=== PATIENT | female | born 1995 | race Caucasian/White ===

== ENCOUNTER 2023-07-06 11:34 | Emergency (ER) | payer OTHER, SELFPAY ==
--- NOTE | ~2023-07-06 | XR_ITS ---
EXAMINATION: XR ankle LT min 3V DATE: 07/06/2023 11:54 INDICATION: Left ankle pain TECHNIQUE: Anteroposterior, lateral, mortise, and additional oblique view of the ankle were obtained. COMPARISON: None. FINDINGS: There is lateral soft tissue swelling of ankle. Bone alignment is normal. There is no fract ure. IMPRESSION: 1. Lateral ankle soft tissue swelling without acute osseous abnormality. Reviewed, dictated and finalized at location A.
[2023-07-06 11:41] VITALS: BP 116/74; PULSE 73; RESP 16; TEMP 35.9; O2SAT 99
--- NOTE | 2023-07-06 11:57 | ED.LOWEXIN ---
HPI - Extremity Injury (Lower) General Chief Complaint: Extremity Injury, Lower Stated Complaint: left ankle injury History of Present Illness HPI Narrative: PATIENT PRESENTS WITH LEFT ANKLE INJURY. PATIENT STATES SHE MISSED A STEP LAST NIGHT AND HAS CONTINUED SWELLING AND DISCOMFORT TO HER LEFT ANKLE. NO DEFORMITY NOTED PATIENT STATES PAIN WITH AMBULATION. Related Data Home Medications Medication Instructions Recorded Confirmed norelgestromin 150 mcg-e.estradiol patch 07/06/23 35 mcg/24 hr weekly transderm patch (Xulane) Allergies Allergy/AdvReac Type Severity Reaction Status Date / Time No Known Allergies Allergy Verified 07/06/23 11:43 Review of Systems Review of Systems: CONSTITUTIONAL: DENIES FEVER, CHILLS, OR SWEATS. EYES: DENIES VISUAL CHANGES, REDNESS, OR DISCHARGE. ENT: DENIES RHINORRHEA, CONGESTION, SORE THROAT, OR OTALGIA. CARDIOVASCULAR: DENIES CHEST PAIN, PALPITATIONS, OR EDEMA. RESPIRATORY: DENIES COUGH OR DYSPNEA. GASTROINTESTINAL: DENIES ABDOMINAL PAIN, NAUSEA, VOMITING, OR DIARRHEA. GENITOURINARY: DENIES DYSURIA OR HEMATURIA. SKIN: DENIES RASH OR ITCHING. MUSCULOSKELETAL: DENIES BACK PAIN, JOINT PAIN, OR MYALGIA. NEUROLOGIC: DENIES HEADACHE, NUMBNESS, OR WEAKNESS. PSYCHIATRIC: DENIES ANXIETY OR DEPRESSION. PMFSH Comments AT TIME OF SIGNATURE, AGREE WITH NURSING PAST MEDICAL, SURGICAL, SOCIAL AND FAMILY HISTORY. THERE IS NO RELEVANT FAMILY HISTORY PERTINENT TO THE PRESENTING COMPLAINT Exam Narrative: GENERAL: WELL-APPEARING, WELL-NOURISHED, AND IN NO ACUTE DISTRESS. HEAD: NORMOCEPHALIC, ATRAUMATIC. EYES: PERRLA AND EOMI. ENT: NARES CLEAR, NO RHINORRHEA OR EPISTAXIS. MUCOUS MEMBRANES MOIST. NECK: SUPPLE. CHEST: CLEAR TO AUSCULTATION. NO RESPIRATORY DISTRESS. HEART: REGULAR RATE AND RHYTHM. NO MURMUR HEARD. NORMAL PERIPHERAL PULSES. ABDOMEN: SOFT, NONTENDER, NONDISTENDED, NORMAL ACTIVE BOWEL SOUNDS. EXTREMITIES: NORMAL RANGE OF MOTION. NO EDEMA. ANKLE EXAM SWELLING AND TENDERNESS TO LEFT ANKLE. SKIN INTACT. NORMAL DP PULSE, NORMAL CAP REFILL. NORMAL SENSATION. SKIN: WARM, DRY, NO RASH. NEURO: NO FOCAL DEFICITS. ALERT AND ORIENTED X3. JENELLE COMA SCALE EYE OPENING: SPONTANEOUS 4 JENELLE COMA SCALE MOTOR: OBEYS COMMANDS 6 JENELLE COMA SCALE VERBAL: ORIENTED 5 JENELLE COMA SCALE TOTAL 15 Course Course Level of Care: Express Care Visit Vital Signs Vital signs: Vital Signs Temperature 35.9 C L 07/06/23 11:41 Pulse Rate 73 07/06/23 11:41 Respiratory Rate 16 07/06/23 11:41 Blood Pressure 116/74 07/06/23 11:41 Pulse Oximetry 99 07/06/23 11:41 Oxygen Delivery Room Air 07/06/23 11:41 Temperature 35.9 C L 07/06/23 11:41 Pulse Rate 73 07/06/23 11:41 Respiratory Rate 16 07/06/23 11:41 Blood Pressure 116/74 07/06/23 11:41 Pulse Oximetry 99 07/06/23 11:41 Oxygen Delivery Room Air 07/06/23 11:41 MDM - Extremity Injury (Lower) Imaging Data Radiologist's impression: LATERAL ANKLE SOFT TISSUE SWELLING WITHOUT ACUTE OSSEOUS ABNORMALITY Discharge Plan Discharge Clinical Impression: Ankle sprain and strain Patient Disposition: Home, Self-Care Condition: Stable Instructions: Ankle Strain (ED) Additional Instructions: ICE TO THE AREA 20-30 MINUTES 4-6 TIMES A DAY ELEVATE ABOVE HEART ELASTIC WRAP DIRECTED FOR COMFORT FOR THE NEXT 5-7 DAYS TYLENOL FOR LESSER PAIN IBUPROFEN REGULARLY FOR THE NEXT 2-3 DAYS FOR THE INFLAMMATION FOLLOW-UP WITH PCP IF FURTHER PROBLEMS OR CONCERNS -IF YOU HAVE ANY WORSENING OF SYMPTOMS OR ANY OTHER CONCERNS PLEASE GO TO THE ED IMMEDIATELY. Prescriptions: No Action Xulane 150-35 mcg/24 hr patch weekly Follow-up/Referrals: PHYSICIAN,SUCTION OPERATOR [Primary Care Provider] - Stand Alone Forms: Work/School Release IP
== END 2023-07-06 12:39 | disposition home or self-care (01) ==
PROVIDERS: Emergency Provider Nurse Practitioner Family
DX: S93.402A Sprain of unspecified ligament of left ankle, initial encounter (principal); S96.912A Strain of unspecified muscle and tendon at ankle and foot level, left foot, initial encounter; X50.0XXA Overexertion from strenuous movement or load, initial encounter
CPT/HCPCS: 73610; 99213; G0463

== ENCOUNTER 2024-02-13 12:21 | Emergency (ER) | payer OTHER, SELFPAY ==
[2024-02-13 12:32] VITALS: BP 110/70; PULSE 65; RESP 20; TEMP 36.9; O2SAT 100
--- NOTE | 2024-02-13 13:01 | ED.GENADULT ---
HPI - General Adult General Chief complaint: Upper Respiratory Infection Stated complaint: Rash and swollen eye Time Seen by Provider: 02/13/24 12:50 Source: patient, RN notes reviewed and old records reviewed Mode of arrival: ambulatory Limitations: no limitations History of Present Illness HPI narrative: 28 year old female presents to [facility] care with complaints of cough for a couple of days then lst night she started with this rash on her hands and on her forearms and some swelling of her hands. She states that sh took 2 Benadryl when she went to bed last night and today she has no itching but rash has increased to torso and has increased to hands with more swelling. Patient denies any known allergens or any new skin laundry products, no new foods or medications. Patient denies any shortness of breath or any difficulty swallowing. MD complaint: rash to torso bilateral arms and hands with swlling of hands Onset (ago): day(s) (since last night) Severity: moderate Treatments prior to arrival: other (Benadryl) Related Data Home Medications Medication Instructions Recorded Confirmed norelgestromin 150 mcg-e.estradiol patch 07/06/23 35 mcg/24 hr weekly transderm patch (Xulane) Allergies Allergy/AdvReac Type Severity Reaction Status Date / Time No Known Allergies Allergy Verified 07/06/23 11:43 Review of Systems Review of Systems: CONSTITUTIONAL: Denies fever, chills, or sweats. EYES: Denies visual changes, redness, or discharge. ENT: Denies rhinorrhea, congestion, sore throat, or otalgia. CARDIOVASCULAR: Denies chest pain, palpitations, or edema. RESPIRATORY: Reports cough no dyspnea. GASTROINTESTINAL: Denies abdominal pain, nausea, vomiting, or diarrhea. GENITOURINARY: Denies dysuria or hematuria. SKIN: rash to torso, bilateral forearms and hand with some swelling of hands MUSCULOSKELETAL: Denies back pain, joint pain, or myalgia. NEUROLOGIC: Denies headache, numbness, or weakness. PSYCHIATRIC: Denies anxiety or depression. All systems reviewed & are unremarkable except as noted in HPI and below PMFSH Past Medical History Medical History (Updated 02/15/24 @ 00:33 by Aliya Sal NP) Asthma Social History Social History (Updated 02/15/24 @ 00:36 by Aliya L. Doron, HABILITATION TRAINING SPECIALIST) Smoking status: Never smoker Alcohol intake: current Alcohol use details: social Substance use type: does not use Gender identity (if verbalized by the patient): Female Comments At time of signature, agree with nursing past medical, surgical, social and family history. There is no relevant family history pertinent to the presenting complaint Exam Narrative: GENERAL: Well-appearing, well-nourished, and in no acute distress. HEAD: Normocephalic, atraumatic. EYES: PERRLA and EOMI. ENT: Nares clear, no rhinorrhea or epistaxis. Mucous membranes moist.throat pink with no swelling or any Ismael angina noted NECK: Supple.no lymphadenopathy CHEST: Clear to auscultation. No respiratory distress.SAO2 100% HEART: Regular rate and rhythm. No murmur heard. Normal peripheral pulses. ABDOMEN: Soft, nontender, nondistended, normal active bowel sounds. EXTREMITIES: Normal range of motion. swelling to dorsal aspect bilateral hands SKIN: Warm, dry, red flat rash on torso, bilateral arms, hands with swelling of hands not presently itchy took Benadryl NEURO: No focal deficits. Alert and oriented x3. Course Course Emergency Course: Patient is aware of diagnosis, understands and agrees to treatment plan.? Anticipatory guidance given.? Patient agrees to follow-up as directed and is aware of reasons to seek care at the emergency department. Portions of this record may have been created with voice recognition software Level of Care: Express Care Visit Vital Signs Vital signs: Vital Signs Temperature 36.9 C 02/13/24 12:32 Pulse Rate 65 02/13/24 12:32 Respiratory Rate 20 02/13/24 12:32 Blood Pressure 110/70
== END 2024-02-13 13:21 | disposition home or self-care (01) ==
PROVIDERS: Emergency Provider Registered Nurse
DX: L30.9 Dermatitis, unspecified (principal); J45.909 Unspecified asthma, uncomplicated
CPT/HCPCS: 87081; 87880; 99213; G0463

== ENCOUNTER 2024-11-29 12:36 | Outpatient (CLI) | payer OTHER, SELFPAY ==
--- NOTE | ~2024-11-29 | XR_ITS ---
CHEST RADIOGRAPH, PA AND LATERAL CLINICAL HISTORY: positive QuantiFeron . COMPARISON: None available TECHNIQUE: PA and lateral views of the chest. FINDINGS The cardiomediastinal silhouette is unremarkable. The lungs are clear. Visualized osseous structures and soft tissues are unremarkable. IMPRESSION: No focal infiltrate or effusion. No findings to suggest latent tuberculosis Reviewed, dictated and finalized at location A. TRICAL ENGINEERING DRAFTING OFFICER
--- OUTSIDE RECORDS SUMMARY | 2024-11-29 14:13 | XMS_ITS | Patient Health Record ---
Author Organization [facility] Address [address] [place] [address] Care Team Providers Care Migration Specialist Name Role Phone AmadouRuth Primary Care Provider IamSanjay Unavailable [phone] Tatiana Ruiz Unavailable [phone] Dereck Kelly Unavailable [phone] Allergies No Known Allergies Results Component Value Reference Range Notes CMP 14 Comprehensive Metabol ic Panel* (Not yet reviewed by provider) Interpretation: Performing Lab:[facility], [address], [place], Phone - [phone], Director - Arsh Notes/Report: Glucose 94 70-99 mg/dL BUN 13 6-20 mg/dL Creatinine 0.67 0.57-1.00 mg/dL eGFR 122 >59 mL/min/1.73 BUN/Creatinine Ratio 19 9-23 Sodium 138 134-144 mmol/L Potassium 4.5 3.5-5.2 mmol/L Chloride 100 96-106 mmol/L Carbon Dioxide, Total 26 20-29 mmol/L Calcium 9.7 8.7-10.2 mg/dL Protein, Total 7.2 6.0-8.5 g/dL Albumin 4.4 4.0-5.0 g/dL Globulin, Total 2.8 1.5-4.5 g/dL Bilirubin, Total <0.2 0.0-1.2 mg/dL Alkaline Phosphatase 63 44-121 IU/L AST (SGOT) 24 0-40 IU/L ALT (SGPT) 32 0-32 IU/L CBC With Differential/Platel et* (Not yet reviewed by provider) Interpretation: Performing Lab[facility] [address] [facility] Phone - [phone], Director - [facility] Notes/Report: WBC 8.5 3.4-10.8 x10E3/uL RBC 4.40 3.77-5.28 x10E6/uL Hemoglobin 13.6 11.1-15.9 g/dL Hematocrit 42.0 34.0-46.6 % MCV 96 79-97 fL MCH 30.9 26.6-33.0 pg MCHC 32.4 31.5-35.7 g/dL RDW 11.6 11.7-15.4 % Platelets 347 150-450 x10E3/uL Neutrophils 57 Not Estab. % Lymphs 31 Not Estab. % Monocytes 9 Not Estab. % Eos 2 Not Estab. % Basos 1 Not Estab. % Neutrophils (Absolute) 4.8 1.4-7.0 x10E3/uL Lymphs (Absolute) 2.6 0.7-3.1 x10E3/uL Monocytes(Absolute) 0.7 0.1-0.9 x10E3/uL Eos (Absolute) 0.2 0.0-0.4 x10E3/uL Baso (Absolute) 0.1 0.0-0.2 x10E3/uL Immature Granulocytes 0 Not Estab. % Immature Grans (Abs) 0.0 0.0-0.1 x10E3/uL Rapid Plasma Reagin (RPR) Te st With Reflex to Quantitative RPR and Confirmatory Treponema pallidum Antibodies Reviewed date:11/28/2024 06:04:39 PM Interpretation:Negative Performing Lab:[facility] [place], [address], Phone - [phone], Director - [facility] Notes/Report: RPR Non Reactive Non Reactive HIV Screen *HIV 1, 2 Ab, p24 Ag ([id number]) Reviewed date:11/28/2024 06:06:24 PM Interpretation:Negative Performing Lab:[facility] [place], [address], Phone - [phone], Director - [facility] Notes/Report: HIV Ab/p24 Ag Screen Non Reactive Non Reactive HIV-1/HIV-2 antibodies and HIV-1 p24 antigen were NOT detected. There is no laboratory evidence of HIV infection. HIV Negative Test, Urine Reviewed date:11/26/2024 08:38:33 AM Interpretation: Performing Lab: Notes/Report: Test, Urine Neg Negative - Negative QuantiFERON-TB Gold Plus ([id number]) Reviewed date:11/28/2024 06:04:39 PM Interpretation:Abnormal [facility]forming [facility], [address], Phone - [phone], Director - Arsh Notes/Report: QuantiFERON Incubation Incubation performed. QuantiFERON-TB Gold Plus Positive Negative A response to M tuberculosis antigens has been detected. If patient is at low risk for Tuberculosis, the result should be interpreted with caution and repeat testing on a new specimen is recommended (ATS/IDSA/CDC Clinical Practice Guidelines, 2017). False positives can also occur due to infection by M kansasii, M szulgai, or M marinum. Chemiluminescence immunoassay methodology QuantiFERON Criteria QuantiFERON-TB Gold Plus is a qualitative indirect test for M tuberculosis infection (including disease) and is intended for use in conjunction with risk assessment, radiography, and other medical and diagnostic evaluations. The QuantiFERON-TB Gold Plus result is determined by subtracting the Nil value from either TB antigen (Ag) value. The Mitogen tube serves as a control for the test. QuantiFERON TB1 Ag Value 0.40 QuantiFERON TB2 Ag Value 0.42 QuantiFERON Nil Value 0.05 QuantiFERON Mitogen Value >10.00 Breathalyzer Reviewed date:11/26/2024 08:38:42 AM Interpretation: Performing Lab: Notes/Report: CHASTITY 0.00 12 Panel Urine Drug Screen Reviewed date:11/26/2024 08:38:49 AM Interpretation: Performing Lab: Notes/Report: THC Neg ALICIA neg MOP (OPI) neg AMP neg MET neg BAR neg BZO neg MDMA neg MTD neg OXY neg PCP neg BUP neg Reason For Referral No Information Medications Medication SIG (Take, Route, Frequency, Duration) Notes Start Date End Date Status ARIPiprazole 10 MG take one-half (0.5) tablet x 7 days then 1 tablet Orally Once a day for 30 days 11/29/2024 Active Benztropine Mesylate 1 MG 1 tablet Orall y Once a day for 30 day(s) 11/29/2024 Active Propranolol HCl 20 MG 1 tablet Orally Tw ice a day for 30 day(s) 11/29/2024 Active Xulane 150-35 MCG/24HR as directed Transdermal Not-Taking OLANZapine 15 MG 1 tablet Orally Once a day for 30 day(s) Active Escitalopram Oxalate 10 MG 1 tablet Orally Once a day for 30 day(s) 11/29/2024 Active Escitalopram Oxalate 10 MG 1 tablet Orally Once a day for 30 day(s) Active OLANZapine 5 MG 1 tablet Orally Once a day for 30 days 12/06/2024 Active hydrOXYzine Pamoate 25 MG 1 capsule at b edtime as needed Orally Once a day Active Social History Tobacco Use: Social History Observation Description Date Details (start date - stop date) Light tobacco s moker NA - NA Sex Assigned At : Social History Observation Description Sex Assigned At Female Tobacco Control (Standard) Question Answer Notes Tobacco use: Light tobacco smoker Additional Findings: Tobacco user Moderate cigar ette smoker (10-19 cigs/day) Section Notes: Social History- location- [place] Describe childhood- Abuse/Trauma-yes 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 Spiritual Affiliation- nature Who lives at home? her and two kids. Siblings? Children? 3 and 8 year old, Older son's dad co-parents with his , Legal History- the kids got taken on 10/29/24, DCFS took due to failed UDS. 3 y.o. Son with a sitter and he ingested cannabis, ended up in the hospital and DCFS became involved. Substance Use-prior to hospital daily cannabis, cocaine use, ETOH-vodka depends on the day-- 10 in a sleeve--between 5 to 10 oz of ETOH a day Problems Problem Type SNOMED Code ICD Code Onset Dates Problem Status W/U Status Risk Notes Problem Tobacco user (098607781) Nicotine dependence, unspecified, uncomplicated (F17.200) Active confirmed Problem Bipolar 1 disorder (061806477) Bipolar 1 disorder (F31.9) Active confirmed Problem Disorder caused by alcohol (disorder) (988503941) Alcohol use disorder (F10.99) Active confirmed Problem Tobacco use (830981351) Tobacco use disorder (F17.200) Active confirmed Problem Interferon gamma assay result indeterminate (364969093) 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 Vital Signs Heart Rate 99 /min 11/26/2024 Temperature 98.4 degrees Fahrenheit 11/25/2024 Respiratory Rate 16 /min 11/29/2024 Blood pressure diastolic 70 mm Hg 11/26/2024 Oximetry 98 % 11/26/2024 Height 62.5 in 11/26/2024 Blood pressure systolic 112 mm Hg 11/26/2024 Weight 125.8 lbs 11/26/2024 BMI 22.64 kg/m2 11/26/2024 Encounters Encounter Location Date Provider Diagnosis [facility] [address] [address] 11/29/2024 Kelly Harden Bipolar 1 disorder F31.9 ; Alcohol use disorder F10.99 and Nicotine dependence, unspecified, uncomplicated F17.200 [address] [place] [address] 11/25/2024 Tatiana Ruiz Bipolar 1 disorder F31.9 [address] [place] [address] 11/25/2024 Ruth Tobar Adult general medica l exam Z00.00 ; Exposure to potential infection Z20.9 and Nicotine dependence, unspecified, uncomplicated F17.200 [address] [place] [address] 11/26/2024 Sanjay Vitale Alcohol use disorder F10.99 and Tobacco use disorder F17.[address] [place] [address] 11/28/2024 Ruth Tobar Positive QuantiFERON-TB Gold test R76.12 Assessments Encounter Date Diagnosis (ICD Code) Assessment Notes Treatment Notes Treatment Clinical Notes Section Notes 11/25/2024 Adult general medical exam (ICD-10 - Z00.00) 11/25/2024 Exposure to potential infection (ICD-10 - Z20.9) 11/26/2024 Alcohol use disorder (ICD-10 - F10.99) 11/26/2024 Tobacco use disorder (ICD-10 - F17.200) 11/28/2024 Positive QuantiFERON-TB Gold test (ICD-10 - R76.12) 11/25/2024 Bipolar 1 disorder (ICD-10 - F31.9) 11/29/2024 Bipolar 1 disorder (ICD-10 - F31.9) Changing agents from olanzapine to aripiprazole. Client does not trust medication and is very sedated. Likes the idea of WOMACK. Explained she may still feel sedated during this process of switching. Day 1-7 olanzapine 7.5 mg (Take one-half of 15 mg pill) at bedtime aripiprazole 5 mg at bedtime (Take one-half of 10 mg tablet) Day 8-14 Olanzapine 5 mg at bedtime aripiprazole 10 mg at bedtime Day 15 stop olanzapine continue (or raise) aripiprazole 10 mg QHS escitalopram 10 mg Q AM Propranolol 20 mg BID benztropine 1 mg QHS 11/29/2024 Alcohol use disorder (ICD-10 - F10.99) reviewed labs today. CLient relieved about kidney/iver function and now wants to start Vivitrol. She will ask for MAT appt. She plans residential treatment as well. 11/25/2024 Nicotine dependence, unspecified, uncomplicated (ICD-10 - F17.200) 11/29/2024 Nicotine dependence, unspecified, uncomplicated (ICD-10 - F17.200) 11/25/2024 Other Bricklayer Apprentice met with Debora to assist in working on building skills to help the consumer gain confidence in their independent living skills. The sports book writer practiced with Debora implementing problem solving skills to help facilitate exploration of options including engagement with crisis unit staff and proviers. The sports book writer encouraged and engaged in critical thinking of how to use natural resources and coping skills to help manage symptoms in the moment. Bricklayer Apprentice also worked on modeling and practicing with the consumer healthy coping skills to reduce stress and anxiety. 11/25/2024 Other Continue treatment as recommended by [facility] staff. Encouraged patient to obtain routine medical care with patient's own primary care provider or establish as a patient at [facility] if no current primary care provider. 11/26/2024 Other Labs to be completed today. Once results received client will be made aware. If she chooses start Vivitrol for treatment will schedule. Plan Of Treatment Pending Test Test Name Order Date CBC With Differential/Platelet* 11/26/19 25 CMP 14 Comprehensive Metabolic Panel* Future Test Test Name Order Date Chest X-ray PA and lateral 11/28/2024 Next Appt Details Provider Name:Ruth Morataya Desiree rt, 11/30/2024 10:00:00 AM, [address], [place], [address], Provider Name:Ruth Morataya Desiree rt, 12/02/2024 08:20:00 AM, [address], [place], [address], Insurance Providers Payer Name Payer Address Payer Phone Subscriber Number Group Number Insured Name Patient Relationship to Insured Coverage Start Date Coverage End Date [employer] [address] [place] [phone] [id number] Debora Krishnan Self - patient is the insured 5 [employer] [address] [place] [phone] [id number] Debora Krishnan Self - patient is the insured 5 [employer] [address] [place] [address] [phone] [id number] Debora Krishnan Self - patient is the insured 5 Medical (General) History Medical History History ICD Code Headaches (tension) Anxiety Depression Insomnia Surgical History Surgery Date(Month/Year) Hospitalization History Reason Date(Month/Year) [facility] for ETOH and Alicia shiela. [facility] --left there. ER trip prior to admittance [facility] inpatient 11/2024
--- OUTSIDE RECORDS SUMMARY | 2024-11-29 14:13 | XMS_ITS ---
Author Organization [facility] Address [address] [place] [address] Care Team Providers Care Spin Tank Tender Name Role Phone Ruth Tobar Primary Care Provider [phone] Iam Armindalaura Unavailable [phone] Allergies No Known Allergies REASON FOR VISIT CRU Medications Medication SIG (Take, Route, Frequency, Duration) Notes Start Date End Date Status OLANZapine 15 MG 1 tablet Orally Once a day for 30 day(s) Active Xulane 150-35 MCG/24HR as directed Transdermal Active Escitalopram Oxalate 10 MG 1 tablet Oral ly Once a day for 30 day(s) Active Social History Tobacco Use: Social History Observation Description Date Details (start date - stop date) Current Smoker NA - NA Sex Assigned At : Social History Observation Description Sex Assigned At Female Tobacco Control (Standard) Question Answer Notes Tobacco use: Current every day smoker Additional Findings: Tobacco user Light cigarett e smoker (1-9 cigs/day) Problems Problem Type SNOMED Code ICD Code Onset Dates Problem Status W/U Status Risk Notes Problem Disorder caused by alcohol (disorder) (379907189) Alcohol use disorder (F10.99) Active confirmed Problem Tobacco use (576587204) Tobacco use disorder (F17.200) Active confirmed Vital Signs Weight 125.8 lbs 11/26/2024 Height 62.5 in 11/26/2024 BMI 22.64 kg/m2 11/26/2024 Blood pressure systolic 112 mm Hg 11/26/19 25 Blood pressure diastolic 70 mm Hg 025 Heart Rate 99 /min 11/26/2024 Oximetry 98 % 11/26/2024 Respiratory Rate 16 /min 11/26/2024 Encounters Encounter Location Date Provider Diagnosis [facility] [address] [place] [address] 11/26/2024 Sanjay Vitale Alcohol use disorder F10.99 and Tobacco use disorder F17.200 Assessments Encounter Date Diagnosis (ICD Code) Assessment Notes Treatment Notes Treatment Clinical Notes Section Notes 11/26/2024 Alcohol use disorder (ICD-10 - F10.99) 11/26/2024 Tobacco use disorder (ICD-10 - F17.200) 11/26/2024 Other Labs to be completed today. Once results received client will be made aware. If she chooses start Vivitrol for treatment will schedule. Plan Of Treatment Treatment Notes Assessment Notes Other Labs to be completed today. Once results received client will be made aware. If she chooses start Vivitrol for treatment will schedule. Future Test Test Name Order Date CBC With Differential/Platelet* 12/03/19 CMP 14 Comprehensive Metabolic Panel* Next Appt Details Follow Up: prn, Reason: Provider Name:Ruth Ramírez rt, 11/30/2024 10:00:00 AM, [address], [place], [address], Provider Name:Ruth Ramírez rt, 12/02/2024 08:20:00 AM, [address], [place], [address], Progress Notes * Debora RAMIREZDOB:1994 (29 yo F)Acc No.[id number]:11/26/2024 Patient: Debora WEISS Provider: Kym Vitale, MSN, SOD CUTTER, THERMODYNAMICS PROFESSOR-C :1995 A ge:29 Y S ex:Female Date:11/26/2024 Phone: Address:[phone] Pcp:Ruth Morataya Short Check In:02:02 PM ENGINEERING GEOLOGIST Subjective: * Chief Complaints: * C RU * HPI: C SSRS Interpretation and Follow Up Plan: CSSRS Interpretation and Follow Up Plan C SSRS Screen documented using SF Y es R isk Disposition from L ow - No Follow Up Plan Required F ollow Up Plan N o Follow Up Plan required at this time. I nterim History: Emergency room visit N o. Was hospitalized N o. D epression Screening: PHQ-9 L ittle interest or pleasure in doing things?Several days F eeling down, depressed, or hopeless S everal days T rouble falling or staying asleep, or sleeping too much N early every day F eeling tired or having little energy S everal days P oor appetite or overeating M ore than half the days F eeling bad about yourself or that you are a failure, or have let yourself or your family down N ot at all T rouble concentrating on things, such as reading the newspaper or watching television N early every day M oving or speaking so slowly that other people could have noticed; or the opposite, being so fidgety or restless that you have been moving around a lot more than usual N early every day T houghts that you would be better off or of hurting yourself in some way N ot at all T otal Score 1 4 I nterpretation M oderate Depression S creening: [place] Suicide Severity Rating Scale (LF) D o you want to initiate with S creener form 1 . Wish to be : Have you wished you were or wished you could go to sleep and not wake up? N o 2 . Suicidal Thoughts: Have you actually had any thoughts of killing yourself? N o 6 . Suicide Behavior Question: Have you ever done anything,started to do anything, or prepared to end your life? N o I nterpretation: L ow Risk S ummary: Debora presents for MAR consult. Admitted to CRU. Drug of choice: alcohol - reports drinking at least 3 times a week about a half a fifth or more with last drink on prior to recent hospitalization at [facility] on 11/16/2024. Uncertain of interest in MAR services. Reports she may be interested in Vivitrol but would like to have labs to make sure her liver is functioning normally. * ROS: B asic ROS: Denies W eight loss or gain. D enies C hange in appetite. I nsomnia D enies. * Medical History: * Surgical History: D enies Past Surgical History * Hospitalization/Major Diagno stic Procedure: [facility] 11/2024 * Family History: F ather: alive. M other: . 5 brother(s) , 4 sister(s) . 2 son(s) . . * Social History: P rimary Social History: L iving Arrangement L iving Arrangement: I ndependent Living I s this a supportive environment? Y es Alcohol Use A lcohol Use Frequency: N ever Illicit Substance Usage I llicit Substance Usage: N o Employment Status E mployment Status: U nemployed T obacco Use: T obacco Control (Standard) T obacco use: C urrent every day smoker A dditional Findings: Tobacco user L ight cigarette smoker (1-9 cigs/day) M iscellaneous: M ethod of learning P referred method of learning: D emonstration * Medications: T akingXulane 150-35 MCG/24HR Patch Weekly as directed Transdermal Escitalopram Oxalate 10 MG Tablet 1 tablet Orally Once a day OLANZapine 15 MG Tablet 1 tablet Orally Once a day Medication List reviewed and reconciled with the patientTaking Xulane 150- 35 MCG/24HR Patch Weekly as directed Transdermal Taking Escitalopram Oxalate 10 MG Tablet 1 tablet Orally Once a day Taking OLANZapine 15 MG Tablet 1 tablet Orally Once a day Medication List reviewed and reconciled with the patient * Allergies: N .K.D.A.no[Allergies Verified] Objective: * Vitals: I nitials: hp, Wt:125.8, Ht: 62.5, BMI:22.64, BP:112/70, HR:99, Oxygen sat %:98, RR:16, LMP: 10/30, Pain scale:2. * Examination: G eneral Examination: GENERAL APPEARANCE: i n no acute distress. PSYCH: a lert, oriented x4, speech clear, good eye contact, full range of affect/positive mood, thought process logical, goal directed. Assessment: * Assessment: 1. T obacco use disorder - F17.200 2 . A lcohol use disorder - F10.99 (Primary) Plan: * Treatment: 2. O thers Notes: Labs to be completed today. Once results received client will be made aware. If she chooses start Vivitrol for treatment will schedule. * Recommended Wellness and Pre vention Guidelines: * S tatus A lert L ast Done N ext Due A ction Taken N ONCOMPLIANT C ervical cancer screening - 0 11/26/2024 - * Procedure Codes: * Preventive Medicine: Counseling: S MOKING: Patient counselled on the dangers of tobacco use and urged to quit. 0 11/26/2024 * Follow Up: p rn * * NEERING GEOLOGIST Sign off status: Completed true * Provider: Kym Vitale, MSN, SOD CUTTER, THERMODYNAMICS PROFESSOR-C Date: 0 11/26/2024 Generated for Ryland contreras/Neema/eTransmitting on: 0 11/29/2024 02:13 PM ENGINEERING GEOLOGIST History and Physical Notes * HPI (History of Present Illness) Category Sub-Category Detail Notes Category Not es Interim History Was hospitalized No Emergency room visit No Depression Screening PHQ-9 Little inte rest or pleasure in doing things: Several days Feeling down, depressed, or hopeless: Se veral days Trouble falling or staying asleep, or sl eeping too much: Nearly every day Feeling tired or having little energy: S everal days Poor appetite or overeating: More than h long-term the days Feeling bad about yourself o r that you are a failure, or have let yourself or your family down: Not at all Trouble concentrating on thi ngs, such as reading the newspaper or watching television: Nearly every day Moving or speaking so slowly that other people could have noticed; or the opposite, being so fidgety or restless that you have been moving around a lot more than usual: Nearly every day Thoughts that you would be b haroldo off or of hurting yourself in some way: Not at all Total Score: 14 Interpretation: Moderate Depression Summary Debora presents for MAR consult. Admitted to CRU. Drug of choice: alcohol - reports drinking at least 3 times a week about a half a fifth or more with last drink on prior to recent hospitalization at [facility] on 11/16/2024. Uncertain of interest in MAR services. Reports she may be interested in Vivitrol but would like to have labs to make sure her liver is functioning normally. Screening [place] Suicide Severity Rating Scale (LF) Do you want to initiate with: Screener form 1. Wish to be : Have you wished you were or wished you could go to sleep and not wake up?: No 2. Suicidal Thoughts: Have you actually had any thoughts of killing yourself?: No 6. Suicide Behavior Question: Have you ever done anything,started to do anything, or prepared to end your life?: No Interpretation:: Low Risk CSSRS Interpretation and Follow Up Plan CSSRS Interpretation and Follow Up Plan CSSRS Screen documented using SF: Yes Risk Disposition from SF: Low - No Follo w Up Plan Required Follow Up Plan: No Follow Up Plan requir ed at this time. Examination Category Sub-Category Detail Notes Category Not es General Examination GENERAL APPEARANCE: in no acute di stress PSYCH: alert, oriented x4, speech clear, good eye contact, full range of affect/positive mood, thought process logical, goal directed
--- OUTSIDE RECORDS SUMMARY | 2024-11-29 14:13 | XMS_ITS | Data Portability ---
Author Organization [facility] NATANAELLavern Lama Address [address] [place] [address] Care Team Providers Care Temporary Data Entry Clerk Name Role Phone HÉCTOR NEGRETE Japanese Interpreter Assessment Encounter Date Assessment Date Assessment LastModified by Organization Details LastModified Time 12/03/2021 12/03/2021 Patient with recurrent trichomonas, new partner was also treated post anxiously await results Not available 12/03/2021 16:56:38 04/01/2022 04/01/2022 will check STD panel and call with results. 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 SHe said her oldest's main activity is getting on my nerves. 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 Lab urinalysi s, dipstick 2023 024 In-Office Order, Internal Use Only DO Not Attach Compendium DO Not Attach Compendium, Do Not Delete/merge, [id number] 16:06:17 cytology report, thin prep, smear or scraping, cervical or vaginal - cervix/en docervix 2023 024 [facility], [address], [address], [place], [address], 4 07:13:44 cytology report, thin prep, smear or scraping, cervical or vaginal 2022 023 [facility], [address], [address], [place], [address], 3 07:18:33 vaginal pathogens panel, ARACELY+probe , vaginal fluid 2021 022 [facility], [address], [address], [place], [address], 2 13:09:34 chlamydia trachomat is + neisseria gonorrhoe ae + trichomon as vaginalis DNA panel, ARACELY+probe , unspecifi ed specimen 2021 022 [facility], [address], [address], [place], [address], 2 07:12:09 vaginal pathogens panel, ARACELY+probe , vaginal fluid 2021 022 [facility], [address] [facility] [address], [place], [address], 2 07:11:35 Referral None recorded. Procedures None recorded. Surgeries None recorded. Imaging None recorded. Medication Orders Xulane 150 mcg-35 mcg/24 hr transderm al patch 2023 024 [id number], [address] [place], [place], [id number], 4 16:12:31 Xulane 150 mcg-35 mcg/24 hr transderm al patch 2022 023 [facility][id number], [address], [place], [place], [id number], 3 10:53:15 fluconazo le 150 mg tablet 2021 022 [facility] #[id number], [address], [place], [place], [id number], 3 09:51:07 Patient TargetsNo targets recorded. Patient Instructions Encounter Date Encounter Id Patient Instructions Last Modified By Organization Details Last Modified Time 04/01/2022 [id number] A healthy lifestyle: care instructions Not available 04/01/2022 12:32:35 Quitting Tobacco : Care Instructions Not available 04/01/2022 12:32:35 05/29/2022 [id number] On the date of this encounter, I was immediately available to assist the resident/fellow in the care of the patient, and have reviewed and agree with the resident s findings and plan of care. [email or web address] Not available 06/02/2022 22:34:47 01/03/2023 [id number] A healthy lifestyle: care instructions Not available 01/03/2023 10:47:35 Reason for Referral None Reported. Results Created Date Observation Date Name Description Value Unit Range Abnormal Flag Note LastModifiedBy Organization Detail LastModifiedTime 12/03/1912/05/2021 CT, NG, TRICH VAG BY ARACELY chlamydia by ARACELY Negati ve negati ve Not Available [facility] ([facility]) [address] [place], [address], 12/05/2021 07:11:35 12/03/19 22 12/05/2021 CT, NG, TRICH VAG BY ARACELY gonococcus by ARACELY Negati ve negati ve Not Available [facility] ([facility]) [address] [place], [address], 12/05/2021 07:11:35 12/03/19 22 12/05/2021 CT, NG, TRICH VAG BY ARACELY trich vag by ARACELY Negati ve negati ve Not Available [facility] ([facility]) [address] [place], [address], 12/05/2021 07:11:35 04/01/20 22 04/02/2022 CT, NG, TRICH VAG BY ARACELY chlamydia by ARACELY Negati ve negati ve Not Available [facility] ([facility]) [address] [place], [address], 04/03/2022 07:12:09 04/01/20 22 04/02/2022 CT, NG, TRICH VAG BY ARACELY gonococcus by ARACELY Negati ve negati ve Not Available [facility] ([facility]) [address] [facility], [place], [address], 04/03/2022 07:12:09 04/01/20 22 04/02/2022 CT, NG, TRICH VAG BY ARACELY trich vag by ARACELY Negati ve negati ve Not Available [facility] ([facility]) [address] [place], [address], 04/03/2022 07:12:09 05/29/20 22 05/31/2022 NUSWA B VAGIN ITIS PLUS (VG+) atopobium vaginae Low - 0 score Not Available [facility] ([facility]) [address] [place], [address], 05/31/2022 13:09:34 05/29/20 22 05/31/2022 NUSWA B VAGIN ITIS PLUS (VG+) bvab 2 Low - 0 score Not Available [facility] ([facility]) [address] [place], [address], 05/31/2022 13:09:34 05/29/20 22 05/31/2022 NUSWA B VAGIN ITIS PLUS (VG+) megasphaera 1 Low - 0 score Calcu late total score by marissa benítez the 3 indiv idual bacte rial vagin osis (BV) marke r score s toget her. Total score is inter prete d as follo ws: Total score 0-1: Indic ates the absen ce of BV. Total score 2: Indet ermin ate for BV. Addit ional clini collin data shoul d be evalu ated to estab latoya a diagn osis. Total score 3-6: Indic ates the prese nce of BV. This test was devel oped and its perfo rmanc e derrick cteri stics deter mined by [facility]. It has not been clear ed or appro laura by the Food and Drug Admin istra tion. Not Available [facility] ([facility]) [address] [place], [address], 05/31/2022 13:09:34 05/29/20 22 05/31/2022 NUSWA B VAGIN ITIS PLUS (VG+) stephanie albicans, ARACELY Positi ve negati ve abnormal Not Available [facility] ([facility]) [address] [place], [address], 05/31/2022 13:09:34 05/29/20 22 05/31/2022 NUSWA B VAGIN ITIS PLUS (VG+) stephanie glabrata, ARACELY Negati ve negati ve Not Available [facility] ([facility]) [address] [place], [address], 05/31/2022 13:09:34 05/29/20 22 05/31/2022 NUSWA B VAGIN ITIS PLUS (VG+) trich vag by ARACELY Negati ve negati ve Not Available [facility] ([facility]) [address] [place], [address], 05/31/2022 13:09:34 05/29/20 22 05/31/2022 NUSWA B VAGIN ITIS PLUS (VG+) chlamydia trachomatis, ARACELY Negati ve negati ve Not Available [facility] ([facility]) [address] [place], [address], 05/31/2022 13:09:34 05/29/20 22 05/31/2022 NUSWA B VAGIN ITIS PLUS (VG+) neisseria gonorrhoeae, ARACELY Negati ve negati ve Not Available [facility] ([facility]) [address] [place], [address], 05/31/2022 13:09:34 01/04/20 23 01/07/2023 IGP,C TNGTV ,RFX APTIM A HPV ASCU chlamydia, nuc. acid amp Negati ve negati ve Not Available [facility] ([facility]) [address] [place], [address], 01/10/2023 07:18:33 01/04/20 23 01/07/2023 IGP,C TNGTV ,RFX APTIM A HPV ASCU gonococcus, nuc. acid amp Negati ve negati ve Not Available [facility] ([facility]) [address] [place], [address], 01/10/2023 07:18:33 01/04/20 23 01/07/2023 IGP,C TNGTV ,RFX APTIM A HPV ASCU trich vag by ARACELY Negati ve negati ve Not Available [facility] ([facility]) [address] [place], [address], 01/10/2023 07:18:33 01/04/20 23 01/09/2023 IGP,C TNGTV ,RFX APTIM A HPV ASCU diagnosis: Commen t NEGAT AMADO FOR INTRA EPITH ELIAL DRE Dorantes OR RADHA GOETZ . Not Available [facility] ([facility]) [address] [place], [address], 01/10/2023 07:18:33 01/04/20 23 01/09/2023 IGP,C TNGTV ,RFX APTIM A HPV ASCU specimen adequacy: Commen t Satis facto ry for evalu ation . Endoc ervic al and/o r squam ous metap lasti c cells (endo cervi collin compo nent) are prese nt. Not Available [facility] ([facility]) [address] [place], [address], 01/10/2023 07:18:33 01/04/20 23 01/09/2023 IGP,C TNGTV ,RFX APTIM A HPV ASCU clinician provided ICD10: Theron laws Z01.4 19 Not Available [facility] ([facility]) [address] [place], [address], 01/10/2023 07:18:33 01/04/20 23 01/09/2023 IGP,C TNGTV ,RFX APTIM A HPV ASCU performed by: Felipe Frenández (ASCP ) Not Available [facility] ([facility]) [address] [place], [address], 01/10/2023 07:18:33 01/04/20 23 01/09/2023 IGP,C TNGTV ,RFX APTIM A HPV ASCU . . Not Available [facility] ([facility]) [address] [place], [address], 01/10/2023 07:18:33 01/04/20 23 01/09/2023 IGP,C TNGTV ,RFX APTIM A HPV ASCU note: Theron laws The Pap smear is a scree rian test arden christian to aid in the detec tion of ponce ligna nt and malig nant condi tions of the uteri ne cervi x. It is not a diagn ostic proce dure and shoul d not be used as the sole means of detec ting cervi collin cance r. Both false -posi tive and false -nega tive repor ts do occur . Not Available [facility] ([facility]) [address] [place], [address], 01/10/2023 07:18:33 01/04/20 23 01/09/2023 IGP,C TNGTV ,RFX APTIM A HPV ASCU test methodology: Commen t This liqui d based ThinP rep(R ) pap test was jose christian with the use of an image guide tavo lima Not Available [facility] ([facility]) [address] [place], [address], 01/10/2023 07:18:33 01/04/20 23 01/09/2023 IGP,C TNGTV ,RFX APTIM A HPV ASCU . Commen t The HPV DNA refle x crite mckenna were not met with this speci men resul t there fore, no HPV testi ng was perfo rmed. Not Available [facility] ([facility]) [address] [facility], [place], [address], 01/10/2023 07:18:33 01/08/20 24 01/12/2024 IGP,C TNGTV ,RFX APTIM A HPV ASCU diagnosis: Commen t NEGAT AMADO FOR INTRA EPITH ELIAL LESIO N OR RADHA GOETZ . Not Available [facility] ([facility]) [address] [facility], [place], [address], 01/13/2024 07:13:43 01/08/20 24 01/12/2024 IGP,C TNGTV ,RFX APTIM A HPV ASCU specimen adequacy: Commen t Satis facto ry for evalu ation . Endoc ervic al and/o r squam ous metap lasti c cells (endo cervi collin compo nent) are prese nt. Not Available [facility] ([facility]) [address] [place], [address], 01/13/2024 07:13:43 01/08/20 24 01/12/2024 IGP,C TNGTV ,RFX APTIM A HPV ASCU clinician provided ICD10: Theron t Z12.4 Not Available [facility] ([facility]) [address] [place], [address], 01/13/2024 07:13:43 01/08/20 24 01/12/2024 IGP,C TNGTV ,RFX APTIM A HPV ASCU performed by: Felipe Gaines (ASCP ) Not Available [facility] ([facility]) [address] [place], [address], 01/13/2024 07:13:43 01/08/20 24 01/12/2024 IGP,C TNGTV ,RFX APTIM A HPV ASCU . . Not Available [facility] ([facility]) [address] [place], [address], 01/13/2024 07:13:43 01/08/20 24 01/12/2024 IGP,C TNGTV ,RFX APTIM A HPV ASCU note: Theron laws The Pap smear is a scree rian test desig anahi to aid in the detec tion of ponce ligna nt and malig nant condi tions of the uteri ne cervi x. It is not a diagn ostic proce dure and shoul d not be used as the sole means of detec ting cervi collin cance r. Both false -posi tive and false -nega tive repor ts do occur . Not Available [facility] ([facility]) [address] [place], [address], 01/13/2024 07:13:43 01/08/20 24 01/12/2024 IGP,C TNGTV ,RFX APTIM A HPV ASCU test methodology: - The Thin Prep( R) Image r was unabl e to read this speci men. There fore a li wray revie w was perfo rmed. Not Available [facility] ([facility]) [address] [place], [address], 01/13/2024 07:13:43 01/08/20 24 01/12/2024 IGP,C TNGTV ,RFX APTIM A HPV ASCU . Commen t The HPV DNA refle x crite mckenna were not met with this speci men resul t there fore, no HPV testi ng was perfo rmed. Not Available [facility] ([facility]) [address] [facility], [place], [address], 01/13/2024 07:13:43 01/08/20 24 01/12/2024 IGP,C TNGTV ,RFX APTIM A HPV ASCU chlamydia, nuc. acid amp Negati ve negati ve Not Available [facility] ([facility]) [address] [place], [address], 01/13/2024 07:13:43 01/08/20 24 01/12/2024 IGP,C TNGTV ,RFX APTIM A HPV ASCU gonococcus, nuc. acid amp Negati ve negati ve Not Available [facility] ([facility]) [address] [facility], [place], [address], 01/13/2024 07:13:43 01/08/20 24 01/12/2024 IGP,C TNGTV ,RFX APTIM A HPV ASCU trich vag by ARACELY Negati ve negati ve Not Available [facility] ([facility]) [address] [facility], [place], [address], 01/13/2024 07:13:43 01/08/20 24 01/08/2024 urina lysis , dipst ick Leukocytes Small Not Available In-Offi ce Order Internal Use Only DO Not Attach Compendium DO Not Attach Compendium, Do Not Delete/merge, [id number] 01/08/2024 15:48:23 01/08/20 24 01/08/2024 urina lysis , dipst ick Nitrite negati ve Not Available In-Office Order Internal Use Only DO Not Attach Compendium DO Not Attach Compendium, Do Not Delete/merge, [id number] 01/08/2024 15:48:23 01/08/20 24 01/08/2024 urina lysis , dipst ick Urobilinogen .2 Not Available In-Of fice Order Internal Use Only DO Not Attach Compendium DO Not Attach Compendium, Do Not Delete/merge, 01/08/2024 15:48:23 01/08/20 24 01/08/2024 urina lysis , dipst ick Protein Negati ve Not Available In-Office Order Internal Use Only DO Not Attach Compendium DO Not Attach Compendium, Do Not Delete/merge, 01/08/2024 15:48:23 01/08/20 24 01/08/2024 urina lysis , dipst ick pH 7.0 Not Available In-Office Order Internal Use Only DO Not Attach Compendium DO Not Attach Compendium, Do Not Delete/merge, 01/08/2024 15:48:23 01/08/20 24 01/08/2024 urina lysis , dipst ick Blood Hemoly zed: Trace Not Available In-Office Order Internal Use Only DO Not Attach Compendium DO Not Attach Compendium, Do Not Delete/merge, 01/08/2024 15:48:23 01/08/20 24 01/08/2024 urina lysis , dipst ick Specific Stebbins 1.020 Not Available In-Off ice Order Internal Use Only DO Not Attach Compendium DO Not Attach Compendium, Do Not Delete/merge, 01/08/2024 15:48:23 01/08/20 24 01/08/2024 urina lysis , dipst ick Ketone Negati ve Not Available In-Office Order Internal Use Only DO Not Attach Compendium DO Not Attach Compendium, Do Not Delete/merge, 01/08/2024 15:48:23 01/08/20 24 01/08/2024 urina lysis , dipst ick Bilirubin Negati ve Not Available In-Office Order Internal Use Only DO Not Attach Compendium DO Not Attach Compendium, Do Not Delete/merge, 01/08/2024 15:48:23 01/08/20 24 01/08/2024 urina lysis , dipst ick Glucose Negati ve Not Available In-Office Order Internal Use Only DO Not Attach Compendium DO Not Attach Compendium, Do Not Delete/merge, [id number] 01/08/2024 15:48:23 Result Notes None recorded. Problems Name Problem SNOMED Code Status Onset Date Resolution Date Notes Provider Name and Address Organization Details Recorded Time 31026260 Completed 202009/21/2021 Becky Gibson RN [facility], [facility] 1 14:31:26 Bacterial vaginosis 965724890 Active Alma Patel MD Attn: Saul jeyson,[address] [facility], [place], [address], [facility] 6 15:21:58 Notes:Rash on body Problem Notes None recorded. Procedures Surgical History Date Name Laterality Status Provider Name and Address Organization Details Recorded Time 01/08/2024 Date of Last Pap Smear completed Sierra Wu [facility] 01/13/2024 09:01:45 Imaging Results None recorded. Procedure Notes None recorded. Medical Equipment None Reported. Allergies No known drug allergies Medications Name Sig Start Date Stop Date Status Note LastModified by Organization Details LastModified Time acetaminoph en 325 mg tablet TAKE 2 TABLETS BY MOUTH EVERY 6 HOURS NEEDED FOR FEVER OR PAIN. DO NOT EXCEED 10 TABLETS IN 24 HOURS active Not Available Not Available No t Available clindamycin HCl 300 mg capsule TAKE 2 CAPSULES BY MOUTH TWICE DAILY FOR 14 DAYS 01/03 completed Not Available Not Available Not Available trazodone 50 mg tablet TAKE ONE TABLET BY MOUTH AT BEDTIME NEEDED (TAKE AT 1000PM) 12/03 completed Not Available Not Available Not Available ibuprofen 800 mg tablet TAKE 1 TABLET BY MOUTH EVERY 6 HOURS WITH FOOD NEEDED FOR PAIN OR FEVER OR SWELLING active Not Available Not Available No t Available ofloxacin 0.3 % eye drops 12/03 completed Not Available Not Available Not Available fluconazole 150 mg tablet TAKE 1 TABLET BY MOUTH DIRECTED 01/01 completed Not Available Not Available Not Available levetiracet am 500 mg tablet 12/03 completed Not Available Not Available Not Available hydrocodone 5 mg-acetamin ophen 325 mg tablet TAKE 1 TABLET BY MOUTH EVERY 4 HOURS NEEDED FOR PAIN 12/03 completed Not Available Not Available Not Available pyridoxine (vitamin B6) 25 mg tablet Take 1 tablet every 6 hours by oral route for 30 days. 12/03 completed Not Available Not Available Not Available phenazopyri dine 200 mg tablet 12/03 completed Not Available Not Available Not Available ondansetron HCl 4 mg tablet 12/03 completed Not Available Not Available Not Available penicillin V potassium 500 mg tablet 12/03 completed Not Available Not Available Not Available metronidazo le 500 mg tablet TAKE 1 TABLET BY MOUTH TWICE DAILY FOR 7 DAYS 01/07 completed Not Available Not Available Not Available valacyclovi r 500 mg tablet TAKE 1 TABLET BY MOUTH EVERY DAY 10/29 completed Not Available Not Available Not Available sulfamethox azole 800 mg-trimetho prim 160 mg tablet 12/03 completed Not Available Not Available Not Available tramadol 50 mg tablet 12/03 completed Not Available Not Available Not Available Vitamin tablet Take 1 tablet every day by oral route for 30 days. 12/03 completed Not Available Not Available Not Available amoxicillin 875 mg tablet 10/16 completed Not Available Not Available Not Available famotidine 20 mg tablet TAKE 1 TABLET BY MOUTH TWICE DAILY FOR GERD active Not Available Not Available No t Available Depo-Cafeteria Operator a 150 mg/mL intramuscul ar suspension Inject 1 mL every 3 months by intramusc ular route for 90 days. 10/16 completed Not Available Not Available Not Available trazodone 100 mg tablet TAKE 1 TABLET BY MOUTH EVERY DAY 12/03 completed Not Available Not Available Not Available ranitidine 150 mg tablet 12/03 completed Not Available Not Available Not Available polymyxin B sulfate 10,000 unit-trimet hoprim 1 mg/mL eye drops 12/03 completed Not Available Not Available Not Available fluoxetine 10 mg capsule TAKE ONE CAPSULE BY MOUTH EVERY MORNING (TAKE AT 800AM) 12/03 completed Not Available Not Available Not Available ibuprofen 600 mg tablet TAKE 1 TABLET BY MOUTH EVERY 6 HOURS NEEDED FOR PAIN 05/29 completed Not Available Not Available Not Available methylpredn isolone 4 mg tablets in a dose pack 10/16 completed Not Available Not Available Not Available norethindro ne (contracept amado) 0.35 mg tablet Take 1 tablet every day by oral route. 12/03 completed Not Available Not Available Not Available Unisom (doxylamine ) 25 mg tablet Take 1 tablet every 6 hours by oral route for 30 days. 12/03 completed Not Available Not Available Not Available azithromyci n 1 gram oral packet 10/16 completed Not Available Not Available Not Available hydroxyzine pamoate 25 mg capsule TAKE 1 CAPSULE BY MOUTH EVERY 6 HOURS NEEDED 12/03 completed Not Available Not Available Not Available moxifloxaci n 0.5 % eye drops 12/03 completed Not Available Not Available Not Available nitrofurant oin monohydrate /macrocryst als 100 mg capsule TAKE 1 CAPSULE BY MOUTH TWICE DAILY 01/07 completed Not Available Not Available Not Available ProAir HFA 90 mcg/actuati on aerosol inhaler 12/03 completed Not Available Not Available Not Available Plan B One-Step 1.5 mg tablet TAKE 1 TABLET BY MOUTH TODAY 03/29 completed Not Available Not Available Not Available OneTouch Verio test strips TEST FOUR TIMES DAILY 12/03 completed Not Available Not Available Not Available Xulane 150 mcg-35 mcg/24 hr transdermal patch APPLY 1 PATCH TOPICALLY TO THE SKIN EVERY WEEK active Not Available Not Available No t Available OneTouch Verio Flex Meter USE DIRECTED 12/03 completed Not Available Not Available Not Available OneTouch Delica Plus Lancet 33 gauge TEST FOUR TIMES DAILY 12/03 completed Not Available Not Available Not Available Vitals Date Recorded Body weight Systolic blood pressure Diastolic blood pressure Provider Name and Address Organization Details Last Updated DateTime 12/03/2021 61599.45 g 112 mm[Hg] 74 mm[Hg] Sierra Wu [place] [facility] 12/03/2021 16:41:54 Date Recorded Body height Body mass index (BMI) Body weight Systolic blood pressure Diastolic blood pressure Provider Name and Address Organization Details Last Updated DateTime 04/01/2022 157.48 cm 28.2 kg/m2 09872.22 g 116 mm[Hg] 72 mm[Hg] Sierra Wu [place] - [facility] 11:17:27 Date Recorded Body height Body mass index (BMI) Body weight Body temperature Heart rate Respiratory rate Systolic blood pressure Diastolic blood pressure Provider Name and Address Organization Details Last Updated DateTime 2 157.48 cm 28.1 kg/m2 04823.4 3 g 98.3 [degF] 84 /min 20 /min 110 mm[Hg] 80 mm[Hg] Charo Junior MA [facility] 2 11:35:14 Date Recorded Body height Body mass index (BMI) Body weight Systolic blood pressure Diastolic blood pressure Provider Name and Address Organization Details Last Updated DateTime 01/03/2023 157.48 cm 28.3 kg/m2 25146.82 g 107 mm[Hg] 72 mm[Hg] Sierra Wu [facility] 3 10:28:09 Date Recorded Body height Body mass index (BMI) Body weight Systolic blood pressure Diastolic blood pressure Provider Name and Address Organization Details Last Updated DateTime 01/08/2024 157.48 cm 27.8 kg/m2 62784.32 g 125 mm[Hg] 84 mm[Hg] Susan Benedict MA [facility] 4 15:42:31 Social History Question Answer Notes LastModified by Organizat ion Details LastModified Time Tobacco Smoking Status Current Every Day Smoker Judith Amanda [place], [facility] 06/03/2016 17:08:29 In The 14 Days Before Symptom Onset, Have You Had Close Contact With A Laboratory-confirm ed COVID-19 While That Case Was Ill? No Information n ot available 04/01/2022 In The 14 Days Before Symptom Onset, Have You Had Close Contact With A Person Who Is Under Investigation For COVID-19 While That Person Was Ill? No Information not available 04/01/2022 Have You Been To An Area Known To Be High Risk For COVID-19? No Information not available 04/01/2022 What Was The Date Of Your Most Recent Tobacco Screening? 01/08/2024 Information not available 01/08/2024 What Is Your Current Pack Years? 10packyears Information not available 03/07/2021 At What Age Did You Start Smoking Tobacco? 15 Information not available 03/07/2021 How Much Tobacco Do You Smoke? 0.25 PPD Information not available 03/07/2021 Has Tobacco Cessation Counseling Been Provided? Yes Information not available 03/07/2021 On What Date Was Tobacco Cessation Counseling Provided? 01/08/2024 Information not available 01/08/2024 How Many Years Have You Smoked Tobacco? 10 Information not available 03/07/2021 Do You Or Have You Ever Used Any Other Forms Of Tobacco Or Nicotine? No Information not available 03/07/2021 Sex: Female Functional Status None recorded. Mental Status None recorded. Family History Relationship Description Onset Age of this Age Resolved Age Notes LastModified by Organization Details LastModified Time Mother Gestational diabetes mellitus [email or web address] Not available 2015 15:21:52 Sister Pre-eclampsi a [email or web address] Not available 2015 15:21:52 Medical History Condition Response Other N High Blood Pressure N Breast Cancer N Thyroid Problems N Kidney or Bladder Problems N GI Problems N Depression N Blood Clots N Lung Disease N Acne N Breast Problem N Eating Disorder N Anemia N Anesthesia Complications N Headaches/Migraines Y Anxiety Disorder Y Diabetes Y Ovarian Cancer N Muscle, Joint, or Bone Problems N Blood Transfusions N Seizures/Epilepsy N Polyps N Infertility N Acid Reflux (GERD) Y Cancer N Abuse/Domestic Violence N Asthma N Endometriosis N High Cholesterol N Hepatitis N Liver Disease N Heart Disease N Pre-Eclampsia N Osteoporosis N Gynecological History Statement/Question Response Abnormal Pap Y Flow Heavy Date of LMP 05/06/2022 On BCP's at Conception? N STIs/STDs Yes HPV Vaccine Y Duration of Flow (days) 5 Current Control Method Patch Age at First Child 21 Sexually Active? Y Date of Last Pap Smear 01/08/2024 Sexual Problems? N LMP Definite Desired Control Method Patch Obstetrics History GPAL:G 2 P 1 1 0 2 Type Value Full Term 1 Premature 1 Living 2 Total 2 Immunizations Vaccine Type Date Status Note Provider Nam e and Address Organization Details Recorded Time IPV 1 completed CARY Zuniga Attn: [address] [place], [address], [facility] 11/20/2022 14:43:22 MMR 1 completed CARY Zuniga Attn: Accounting,[address] [facility] [place], [address] [place] [address], [facility] 11/20/2022 14:43:22 MMR 8 completed CARY Zuniga Attn: Accounting,[address], [place], [address] [place] [address], [facility] 11/20/2022 14:43:22 influenza, unspecified formulation 9 completed CARY Zuniga Attn: Accounting,[address], [place], [address] [place] [address], [facility] 11/20/2022 14:43:22 Tdap 7 completed CARY Zuniga Attn: Accounting,[address] [facility], [place], [address] [place] [address], [facility] 11/20/2022 14:43:22 DTP 1 completed CARY Zuniga Attn: Accounting,[address], [place], [address] [place] [address], [facility] 11/20/2022 14:43:22 OPV 7 completed CARY Zuniga Attn: Accounting,[address] [facility], [place], [address] [place] [address], [facility] 11/20/2022 14:43:22 OPV 6 completed CARY Zuniga Attn: Accounting,[address] [facility], [place], [address] [place] [address], [facility] 11/20/2022 14:43:22 OPV 6 completed CARY Zuniga Attn: Accounting,[address] [facility], [place], [address] [place] [address], [facility] 11/20/2022 14:43:22 OPV 8 completed CARY Zuniga Attn: Accounting,[address] [facility], [place], [address] [place] [address], [place] [facility] 11/20/2022 14:43:22 DTP-Hib 7 completed MI Zuniga-BC Attn: Accounting,[address] [facility], [place], [address] [place] [address], [facility] 11/20/2022 14:43:22 DTP-Hib 6 completed MI Zuniga-BC Attn: Accounting,[address] 1 [facility], [place], [address] [place] [address], [facility] 11/20/2022 14:43:22 DTP-Hib 6 completed MI Zuniga-BC Attn: Accounting,[address] [facility], [place], [address] [place] [address], [facility] 11/20/2022 14:43:22 DTP-Hib 8 completed MI Zuniga-BC Attn: Accounting,[address] [facility], [place], [address] [place] [address], [facility] 11/20/2022 14:43:22 influenza, split (incl. purified surface antigen) 2 completed MI Zuniga-BC Attn: Accounting,[address] [place], [address] [place] [address], [facility] 11/20/2022 14:43:22 HPV, quadrivalent 1 completed MI Zuniga-BC Attn: Accounting,[address] [place], [address] [place] [address], [place] [facility] 11/20/2022 14:43:22 HPV, quadrivalent 9 completed MI Zuniga-BC Attn: Accounting,[address] [place], [address] [place] [address], [facility] 11/20/2022 14:43:22 HPV, quadrivalent 2 completed MI Zuniga-BC Attn: Accounting,[address] [place], [address] [place] [address], [facility] 11/20/2022 14:43:22 Hep B, adolescent or pediatric 04/11/199 7 completed MI Zuniga-BC Attn: Accounting,[address] [facility], [place], [address], [facility] 11/20/2022 14:43:22 Hep B, adolescent or pediatric 6 completed MI Zuniga-BC Attn: Accounting,[address] [facility], [place], [address], [facility] 11/20/2022 14:43:22 Hep B, adolescent or pediatric 6 completed MI Zuniga-BC Attn: Accounting,[address] [facility], [place], [address] [place] [address], [facility] 11/20/2022 14:43:22 Hep A, adult 9 completed MI Zuniga-BC Attn: Accounting,[address] [facility], [place], [address], [facility] 11/20/2022 14:43:22 Hep A, ped/adol, 2 dose 7 completed MI Zuniga-BC Attn: Accounting,[address] [facility], [place], [address] [place] [address], [facility] 11/20/2022 14:43:22 Hep A, ped/adol, 2 dose 8 completed MI Zuniga-BC Attn: Accounting,[address] [facility], [place], [address], [facility] 11/20/2022 14:43:22 meningococcal MCV4P 8 completed MI Zuniga-BC Attn: Accounting,[address] [facility], [place], [address], [facility] 11/20/2022 14:43:22 meningococcal MCV4P 2 completed MI Zuniga-BC Attn: Accounting,[address] [facility], [place], [address], [facility] 11/20/2022 14:43:22 Tdap 7 completed Not Available [facility] 10/23/2019 02:42:35 Tdap 1 completed Sierra Wu, [facility] 08/06/2021 14:32:05 Past Encounters Encounter ID Performer Location Encounter Start Date Encounter Closed Date Diagnosis/Indication Diagnosis SNOMED-CT Code Diagnosis ICD10 Code Diagnosis Note [id number] MD Diego Argueta ([place] [address]) [address] [facility] [place] [address] 06/03/2016 16:54:13 06/03/2016 22:37:58 test positive [id number] Z32.01 [id number] ROSALINDA Marie ([place] [address]) [address] [facility] [place] [address] 06/28/2016 14:55:58 06/29/2016 22:39:31 Normal [id number] Z34.82 [id number] MD Diego Monahan ([place] [address]) [address] [facility] [place] [address] 07/25/2016 16:48:49 08/08/2016 11:35:17 Normal [id number] Z34.90 [id number] MD Diego Monahan ([place] [address]) [address] [facility] [place] [address] 08/15/2016 16:53:15 08/19/2016 09:55:07 Normal [id number] Z34.90 [id number] MD Diego Monahan ([place] [address]) [address] [facility] [place] [address] 09/12/2016 10:51:54 09/12/2016 12:11:05 Normal [id number] Z34.90 [id number] MD Diego Monahan ([place] [address]) [address] [facility] [place] [address] 10/14/2016 16:42:10 10/15/2016 09:32:26 Normal [id number] Z34.90 Uterine si ze for dates discrepancy 655752470 O26.100 [id number] MD Diego Monahan ([place] [address]) [address] [facility] [place] [address] 10/24/2016 09:47:29 10/24/2016 14:53:47 Administration of diphtheria, pertussis, and tetanus vaccine 631501477 Z23 Normal 9534257 2 Z34.90 [id number] MD Diego Monahan Womens ([facility] 205) [address] [facility] [place] [address] 11/19/2016 15:44:24 11/20/2016 14:33:34 depression 01823918 O99.794 [id number] MD Diego Monahan Womens ([facility] 205) [address] [facility] [place] [address] 02/21/2017 10:24:06 02/21/2017 14:24:12 care [id number] Z39.2 [id number] MD Diego Monahan Women ([facility] 205) [address] [facility] [place] [address] 07/15/2017 12:03:09 07/16/2017 15:48:16 Body mass index 20-24 - normal 047400625 Z68.20 Cervicovag inal cytology: Low grade squamous intraepithelial lesion 579944237 R87.968 [id number] MD Diego Monahan 14 OB 4 [facility] [place] [address] 02/23/2018 15:43:23 02/23/2018 17:24:18 Body mass index 20-24 - normal 357546100 Z68.21 Gynecologi c examination 34386844 Z01.419 Dermatophy tosis of the body 617201494 B35.4 [id number] MD Diego Monahan 14 OB 4 [facility] [place] [address] 06/15/2019 15:39:01 06/17/2019 09:05:06 Gynecologic examination 68857969 Z01.103 [id number] MD Diego Monahan 14 OB 4 [facility] [place] [address] 03/07/2021 12:13:52 03/08/2021 16:07:46 Normal [id number] Z34.90 [id number] MD Diego Monahan 14 OB 4 [facility] [place] [address] 04/05/2021 15:31:53 04/06/2021 19:15:10 Normal [id number] Z34.90 Past pregn lavern history of premature delivery 997368389 Z87.51 [id number] Becky Gibson RN Dawes 14 OB [address] [facility] [place] [address] 04/11/2021 12:13:17 04/16/2021 09:38:32 [id number] MD Diego Monahan 14 OB 4 [facility] [place] [address] 04/30/2021 15:09:13 05/02/2021 11:33:55 Normal [id number] Z34.90 [id number] MD Diego Monahan 14 OB 4 [facility] [place] [address] 05/14/2021 15:02:13 05/15/2021 08:37:34 Normal 21479900 Z34.90 Infection by Trichomonas 73812214 A59.9 Past pregn lavern history of premature delivery 312076018 Z87.51 [id number] MD Diego Monahan 14 OB 4 [facility] [place] [address] 06/04/2021 15:02:56 06/05/2021 14:45:06 Normal 95602709 Z34.90 Past pregn lavern history of premature delivery 081919201 Z87.51 [id number] MD Diego Monahan 14 OB 4 [facility] [place] [address] 07/02/2021 12:13:13 07/04/2021 13:23:48 Normal 95764724 Z34.90 Infection by Trichomonas 17216630 A59.9 Past pregn lavern history of premature delivery 487136296 Z87.51 [id number] MD Diego Monahan 14 OB 4 [facility] [place] [address] 07/23/2021 14:27:51 07/24/2021 06:51:52 Normal [id number] Z34.90 Past pregn lavern history of premature delivery 627942753 Z87.51 Gestationa l diabetes mellitus 09458245 O24.282 [id number] MD Diego Monahan 14 OB 4 [facility] [place] [address] 08/06/2021 14:16:25 08/07/2021 06:51:21 Normal 14111394 Z34.90 Administra tion of diphtheria, pertussis, and tetanus vaccine 242472553 Z23 Past pregn lavern history of premature delivery 317042144 Z87.51 [id number] MD Diego Monahan 14 OB 4 [facility] [place] [address] 08/20/2021 14:13:34 08/21/2021 06:16:04 Normal 78893388 Z34.90 Infection by Trichomonas 89899286 A59.9 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 69611878 A60.9 [id number] MD Diego Monahan 14 OB [address] [facility] [place] [address] 08/27/2021 14:50:16 08/28/2021 06:38:33 Normal [id number] Z34.90 [id number] MD Diego Monahan 14 OB 4 [facility] [place] [address] 09/03/2021 15:45:01 09/04/2021 09:38:05 Normal 71170632 Z34.90 [id number] MD Diego Monahan 14 OB 4 [facility] [place] [address] 09/21/2021 14:23:38 09/23/2021 15:55:30 depression 02587809 O99.345 Contracept ion care management 588181636 Z30.9 [id number] MD Diego Monahan 14 OB [address] [facility] [place] [address] 10/16/2021 14:10:14 10/17/2021 06:19:53 care 998726546 Z39.2 Contracept ion care management 138909611 Z30.9 [id number] MD Diego Monahan 14 OB 4 [facility] [place] [address] 12/03/2021 16:26:04 12/04/2021 06:33:31 Infection by Trichomonas 75386122 A59.9 [id number] MD Diego Monahan 14 OB [address] [facility] [place] [address] 04/01/2022 11:04:35 04/02/2022 08:02:14 Vaginal discharge 336903167 N89.8 Smoker 92990519 F17.200 Overweight 225852797 E66 .3 [id number] MD Diego Jeffries 14 IM [address] [facility] [place] [address] 05/29/2022 11:20:58 06/03/2022 09:21:12 Venereal disease screening 446211905 Z11.3 -Patient deferred exam, will treat empiricall y for fungal infection and wait on labs.-She denies discharge or urinary symptoms.s he recent completed abx w/metronid azole. [id number] MD Diego Monahan 14 OB [address] [facility] [place] [address] 01/03/2023 10:08:10 01/04/2023 12:17:11 Overweight 840123342 E66.3 Gynecologi c examination 10916326 Z01.419 Contracept ion care management 610776250 Z30.9 [id number] MD Diego Monahan 14 OB [address] [facility] [place] [address] 01/08/2024 15:31:54 01/15/2024 10:21:39 Screening for malignant neoplasm of cervix 272942535 Z12.4 At [facility] risk of urinary tract infection 887478434 Z91.89 Gynecologi c examination 60146623 Z01.419 Contracept ion care management 594521414 Z30.9 Health Concerns Section Related Observation LastModified by Organization Detai ls LastModified Time None Recorded Concern Status LastModified by Organization Details LastModified Time None Recorded Advance Directives Directive None Recorded Payers Encounter Date Sequence Insurance Name Policy Number Policy [place] Covered Member ID Austin Member ID Guarantor Name 12/03/2021 1 [facility] (MEDICAID HMO) [id number] Debora Ramirez [id number] Debora Ramirez 04/01/2022 1 [facility] (MEDICAID HMO) [id number] Debora Ramirez [id number] Debora Ramirez 05/29/2022 1 [facility] (MEDICAID HMO) [id number] Debora Tavo Ramirez [id number] Debora Tavo Ramirez 01/03/2023 1 [facility] (MEDICAID HMO) [id number] 0003 Debora Tavo Ramirez [id number] Debora Tavo Ramirez 01/08/2024 1 [facility] (MEDICAID HMO) [id number] 0003 Debora Tavo Ramirez [id number] Debora Ramirez Notes Date Note Type Note Provider Name and Address Organization Details Recorded Time 2 text/html recurrent trichomonasdiscussed in detail her history Héctor Negrete MD Attn: [address] [place], [address], [facility] 12/03/2021 16:56:53 2 text/html having unusual discharge( has a hx of both trich and GC within last year) sporadic candice-umbilical pain and loose stools suggest a GI issue as well Héctor Negrete MD Attn: [address] [place], [address], [facility] 04/01/2022 11:25:39 2 text/html Patient is a 27 y/o female arrived to clinic with complaints of vaginal itching. there is no associated discharge or urinary symptoms. Completed tx with metronidazole about a month ago for + trichomonas. There is no associated rash, erythema denies burning on urination or increased freq. Beryl Holder MD Attn: [address] [place], [address], [facility] 06/02/2022 22:34:58 3 text/html Annual GYNReported bypatient.Menstrual cycle:Normal menses Urinary symptoms:No hematuria; No incontinence Vulva:No genital lesion Vagina:Normal vaginal discharge Breast:No breast pain; No breast lump; No nipple discharge Current Contraception:Transdermal patch Sexual complaints:No sexual complaints; No pain during intercourse; Normal libido Menopausal Symptoms:No menopausal symptoms; Normal vaginal lubrication Psychological symptoms:No depression; No anxiety; No PMDD Héctor Negrete MD Attn: [address] [place], [address], [facility] 01/03/2023 10:53:22 4 text/html Annual GYNReported bypatient.Menstrual cycle:Normal menses Urinary symptoms:No hematuria; No incontinence Vulva:No genital lesion Vagina:Normal vaginal discharge Breast:No breast pain; No breast lump; No nipple discharge Current Contraception:Transdermal patch Sexual complaints:No sexual complaints; No pain during intercourse; Normal libido Menopausal Symptoms:No menopausal symptoms; Normal vaginal lubrication Psychological symptoms:No depression; No anxiety; No PMDD Héctor Negrete MD Attn: [address]ing[address] [place], [address], [facility] 01/08/2024 16:06:35 OBGyn Episode Ob Episode Information Episode Created Date Number of Fetuses Patient Bloodtype Patient rh Status Prepregnancy Weight lbs Domestic Partner Domestic Partner Phone Father Name Crisis Counselor Status 03/07/20 21 1 B CLOSED Fetus Data First Name Last Name Admitted to NICU Weight (g) Sex Living Outcome Pediatric Complications Fetus ID Race Codes Race Delivery Type Ike Martinez ider 3061.74 6 M true Full Term 22009 [id number] White Vaginal Bhaskar Calculation Initial Bhaskar Date Initial Exam Date Initial Exam Provider Initial Ultrasound Date Last Menstrual Period Date Ultra Sound Weeks Gestation 09/17/2021 03/07/2021 12/11/2020 0 Eighteen To Twenty Week Bhaskar Update Ultra Sound Date Fundal Height At Umbil Quickening Date Ultra Sound Latest Weeks Gestation Final Bhaskar Confirmed By Final Bhaskar Confirmed Date Final Bhaskar Date Ultra Sound Latest Days Gestation 0 09/17/20 21 0 Pre- Flowsheet Flowsheet Date 03/07/2021 Mclaughlin Score Blood Edema Fundus Height Fundus Units Glucose Ketones Leukocytes Nitrite Labor Signs Protein Cervic Dilation Cervic Effacement Cervic Station none 12 wks 0cm 0% -4 Type Weight in lbs Pre/Post Dialysis Refused With clothes 154.089983279509 BP Diastolic BP Location Tested BP Systolic BP Type 72 108 sitting Fetus Heart Rate Present A 154 Present Fetus Movement Comments Second , normal NOB exam for around 12 weeks ( Thrive US...)First delivered between 35-36 weeks with several different visits for terb.will discuss HROB visit for possible 17 OHP. Flowsheet Date 04/05/2021 Mclaughlin Score Blood Edema Fundus Height Fundus Units Glucose Ketones Leukocytes Nitrite Labor Signs Protein Cervic Dilation Cervic Effacement Cervic Station none 16 wks none neg Type Weight in lbs Pre/Post Dialysis Refused With clothes 157.605048399282 BP Diastolic BP Location Tested BP Systolic BP Type 72 128 sitting Fetus Heart Rate Present A 156 Present Fetus Movement Comments Having a stressful day : ( Y ounger sister at [place], 28 weeks, no care, having baby..)will send urine for missed GC/chlamydia on papUS in 2 weeks, here in 3.HROB visit to discuss 17 OHP in works Flowsheet Date 04/11/2021 Mclaughlin Score Blood Edema Fundus Height Fundus Units Glucose Ketones Leukocytes Nitrite Labor Signs Protein Cervic Dilation Cervic Effacement Cervic Station Type Weight in lbs Pre/Post Dialysis Refused 0.0 Not Performed BP Diastolic BP Location Tested BP Systolic BP Type Fetus Heart Rate Present Fetus Movement Comments Flowsheet Date 04/30/2021 Mclaughlin Score Blood Edema Fundus Height Fundus Units Glucose Ketones Leukocytes Nitrite Labor Signs Protein Cervic Dilation Cervic Effacement Cervic Station 20 cm none neg Type Weight in lbs Pre/Post Dialysis Refused With clothes 156.017425710797 BP Diastolic BP Location Tested BP Systolic BP Type 70 118 sitting Fetus Heart Rate Present A 156 Present Fetus Movement A Yes Comments 20 weeks. doing wellhas HROB apt. friday to discuss 17 OHPwas treated for trich and GC ; will do ALYSSA next visitf/u US after next visit Flowsheet Date 05/14/2021 Mclaughlin Score Blood Edema Fundus Height Fundus Units Glucose Ketones Leukocytes Nitrite Labor Signs Protein Cervic Dilation Cervic Effacement Cervic Station none 21 cm none neg Type Weight in lbs Pre/Post Dialysis Refused With clothes 160.286314236042 BP Diastolic BP Location Tested BP Systolic BP Type 74 118 sitting Fetus Heart Rate Present A 156 Present Fetus Movement A Yes Comments Missed HROB apt for 17 OHP d iscussion ( she is trying to reschedule it...)DId ALYSSA for GC and trich today, await results.f/u US ordered as well Flowsheet Date 06/04/2021 Mclaughlin Score Blood Edema Fundus Height Fundus Units Glucose Ketones Leukocytes Nitrite Labor Signs Protein Cervic Dilation Cervic Effacement Cervic Station Type Weight in lbs Pre/Post Dialysis Refused With clothes 161.469990626075 BP Diastolic BP Location Tested BP Systolic BP Type 70 118 sitting Fetus Heart Rate Present Fetus Movement Comments Doing OK, no big issues. A l ittle with recent heat wave. Discussed dehydration, sun exposure, etc. ( heat index>100)f/u US was good.Has HROB apt on 06/13 to discuss her delivery HX and the use of 17 OHPTested + for trich again on 05/14, treated 05/16 Flowsheet Date 07/02/2021 Mclaughlin Score Blood Edema Fundus Height Fundus Units Glucose Ketones Leukocytes Nitrite Labor Signs Protein Cervic Dilation Cervic Effacement Cervic Station none 27 cm none neg Type Weight in lbs Pre/Post Dialysis Refused With clothes 167.496291114612 BP Diastolic BP Location Tested BP Systolic BP Type 70 112 sitting Fetus Heart Rate Present A 156 Present Fetus Movement A Yes Comments HROB decided it was too late for 17 OHP ( per pt. no report available from consult yet)retest for trich ALYSSA todaysugar test ongoing Flowsheet Date 07/23/2021 Mclaughlin Score Blood Edema Fundus Height Fundus Units Glucose Ketones Leukocytes Nitrite Labor Signs Protein Cervic Dilation Cervic Effacement Cervic Station none 30 cm none neg Type Weight in lbs Pre/Post Dialysis Refused With clothes 168.632746570033 BP Diastolic BP Location Tested BP Systolic BP Type 70 108 sitting Fetus Heart Rate Present A 144 Present Fetus Movement A Yes Comments Doing OK. Was still (+) for trich at last visit, treated again as well as partner ( per pt.)Discussed labor risks of vaginal infection and intercourse. Pelvic rest until delivery for safetystill seeing HROB, checking sugars. 3 hr GTT was just off. Flowsheet Date 08/06/2021 Mclaughlin Score Blood Edema Fundus Height Fundus Units Glucose Ketones Leukocytes Nitrite Labor Signs Protein Cervic Dilation Cervic Effacement Cervic Station none 32 cm none neg Type Weight in lbs Pre/Post Dialysis Refused With clothes 169.619638368068 BP Diastolic BP Location Tested BP Systolic BP Type 74 112 sitting Fetus Heart Rate Present A 141 Present Fetus Movement Comments doing well, no ctxactive bab y TDA and GBD todaylabor precautions Flowsheet Date 08/20/2021 Mclaughlin Score Blood Edema Fundus Height Fundus Units Glucose Ketones Leukocytes Nitrite Labor Signs Protein Cervic Dilation Cervic Effacement Cervic Station none 34 cm none neg Type Weight in lbs Pre/Post Dialysis Refused With clothes 172.268083132558 BP Diastolic BP Location Tested BP Systolic BP Type 76 110 sitting Fetus Heart Rate Present A 148 Present Fetus Movement A Yes Comments doing well, 36 weeks is abou t where she went into labor last ; advised her to pack her bag.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;labor precautions Flowsheet Date 08/27/2021 Mclaughlin Score Blood Edema Fundus Height Fundus Units Glucose Ketones Leukocytes Nitrite Labor Signs Protein Cervic Dilation Cervic Effacement Cervic Station none 35 cm none trace 1cm 50% -3 Type Weight in lbs Pre/Post Dialysis Refused With clothes 171.151236395881 BP Diastolic BP Location Tested BP Systolic BP Type 80 116 sitting Fetus Heart Rate Present A 145 Present Fetus Movement A Yes Comments doing well, happy to be at t ermdiscussed challenges of HROB visits and NSTs/kick countshas HROB apt tomorrow for one NST this weeklabor precautions Flowsheet Date 09/03/2021 Mclaughlin Score Blood Edema Fundus Height Fundus Units Glucose Ketones Leukocytes Nitrite Labor Signs Protein Cervic Dilation Cervic Effacement Cervic Station none 36 cm none neg Type Weight in lbs Pre/Post Dialysis Refused With clothes 174.862566297968 BP Diastolic BP Location Tested BP Systolic BP Type 74 116 sitting Fetus Heart Rate Present A 141 Present Fetus Movement A Yes Comments doing well, active baby, no ctx.declined 39 week induction for now.kick counts, labor precautions Flowsheet Date 09/21/2021 Mclaughlin Score Blood Edema Fundus Height Fundus Units Glucose Ketones Leukocytes Nitrite Labor Signs Protein Cervic Dilation Cervic Effacement Cervic Station Type Weight in lbs Pre/Post Dialysis Refused Weight 151.300875731278 BP Diastolic BP Location Tested BP Systolic BP Type 74 116 Fetus Heart Rate Present Fetus Movement Comments Menstrual History Last Menstrual Date Menses Monthly On Bcp Conception Prior Menses Frequency Hcg Plus Date Menarche Onset Age 0312/11/2020 true Genetic Screening And Infection History Question Response Note Patient's Age Will Be 35 Years Or Older At Estim ated Date of Delivery false Thalassemia (Croatian, Latvian, Mediterranean, Or Background): MCV < 80 false Neural Tube Defect (Meningomyelocele, Spina Bifi da, Or Anencephaly) false Congenital Heart Defect false Down Syndrome false Gio-Sachs (eg, Sikhism, Cajun, Korean-[place]) f alse Mary Jane Disease false Sickle Cell Disease Or Trait () false Hemophilia Or Other Blood Disorders false Muscular Dystrophy false Cystic Fibrosis false [place]'s [place] false Mental Retardation/Autism false If Yes, Was Person Tested For Fragile X? false Other Inherited Genetic Or Chromosomal Disorder false Maternal Metabolic Disorder (eg, Type 1 Diabetes , PKU) false Patient Or Baby's Father Had A Child With Defects Not Listed Above false Recurrent Loss, Or A Stillbirth false Medications (including Suppl ements, Vitamins, Herbs, OTC Drugs), Illicit/Recreational Drugs, Alcohol false If Yes, Agent(s) And Strength/Dosage false Any Other Genetic History false Live With Someone With TB Or Exposed To TB false Patient Or Partner Has History Of Genital Herpes false Rash Or Viral Illness Since Last Menstrual Perio d false History Of STD, Gonorrhea, Chlamydia, HPV, Syphi lis false Other Infection History false History of HIV false History of Hepatitis false Prior GBS-infected child false Delivery Information Delivery Date Delivery Type Labor Anesthesia Weeks Gestation Incision Type Labor Labor Length Hrs Delivered By Post Complications Tubal Sterilization Discharge Date Comments 1 Sponta neous 38.5 false Kemi Levine MD 9o/c) Discharge Information Feeding Method Contraceptive Method Maternal HG B and HCT Levels Combination Ob Episode Information Episode Created Date Number of Fetuses Patient Bloodtype Patient rh Status Prepregnancy Weight lbs Domestic Partner Domestic Partner Phone Father Name Crisis Counselor Status 06/24/20 16 1 B Positive Del. @ [facility] ED Fetus Data First Name Last Name Admitted to NICU Weight (g) Sex Living Outcome Pediatric Complications Fetus ID Race Codes Race Delivery Type Bola ferreira false 2296.30 95 M true Prematur [place] [id number] White Vaginal Bhaskar Calculation Initial Bhaskar Date Initial Exam Date Initial Exam Provider Initial Ultrasound Date Last Menstrual Period Date Ultra Sound Weeks Gestation 11/26/2016 06/24/2016 [email or web address] 06/22/2016 02/18/2016 17 Eighteen To Twenty Week Bhaskar Update Ultra Sound Date Fundal Height At Umbil Quickening Date Ultra Sound Latest Weeks Gestation Final Bhaskar Confirmed By Final Bhaskar Confirmed Date Final Bhaskar Date Ultra Sound Latest Days Gestation 0 heather 10/28/2016 017 0 Pre- Flowsheet Flowsheet Date 06/28/2016 Mclaughlin Score Blood Edema Fundus Height Fundus Units Glucose Ketones Leukocytes Nitrite Labor Signs Protein Cervic Dilation Cervic Effacement Cervic Station Type Weight in lbs Pre/Post Dialysis Refused 115.989997812689 BP Diastolic BP Location Tested BP Systolic BP Type 70 122 Fetus Heart Rate Present A 154 Fetus Movement Comments Patient is here for an ED fo llow for threatened . Patient states that she she had painless vaginal bleeding. Patient is no longer bleeding. Patient also c/o a rash between the breasts, the umbilicus. Rash is macuopapular and erythematous. It is non pruritic. Patient was informed that she most likely has a heat rash. Patient was also noted to have vulva erythema. Patient states that she just shaved her pubic hair. Speculum exam reveals that the cervical os is closed. No bleeding was noted. Vaginitis panel was sent for vaginal discharge. ER precautions were given. Quad screen was ordered. Anatomy scan was ordered. Will evaluate cervical length. Flowsheet Date 07/25/2016 Mclaughlin Score Blood Edema Fundus Height Fundus Units Glucose Ketones Leukocytes Nitrite Labor Signs Protein Cervic Dilation Cervic Effacement Cervic Station 21 cm Type Weight in lbs Pre/Post Dialysis Refused 123.075690986323 BP Diastolic BP Location Tested BP Systolic BP Type 48 92 sitting Fetus Heart Rate Present A 142 Present Fetus Movement A Yes Comments Doing well, no issues todayH asn't done bloodwork yet Flowsheet Date 08/15/2016 Mclaughlin Score Blood Edema Fundus Height Fundus Units Glucose Ketones Leukocytes Nitrite Labor Signs Protein Cervic Dilation Cervic Effacement Cervic Station 23 cm Type Weight in lbs Pre/Post Dialysis Refused 129.833799412927 BP Diastolic BP Location Tested BP Systolic BP Type 56 108 sitting Fetus Heart Rate Present A 145 Present Fetus Movement A Yes Comments just did first set of blood work, sugar test next time Flowsheet Date 09/12/2016 Mclaughlin Score Blood Edema Fundus Height Fundus Units Glucose Ketones Leukocytes Nitrite Labor Signs Protein Cervic Dilation Cervic Effacement Cervic Station 26 cm Type Weight in lbs Pre/Post Dialysis Refused 137.060785136985 BP Diastolic BP Location Tested BP Systolic BP Type 52 98 sitting Fetus Heart Rate Present A 150 Present Fetus Movement A Yes Comments doing well, sugar test today .Hasn't told Dad and stepmom yet - encouraged her to do so. Flowsheet Date 10/14/2016 Mclaughlin Score Blood Edema Fundus Height Fundus Units Glucose Ketones Leukocytes Nitrite Labor Signs Protein Cervic Dilation Cervic Effacement Cervic Station 28 cm Type Weight in lbs Pre/Post Dialysis Refused 145.4611965816 BP Diastolic BP Location Tested BP Systolic BP Type 72 108 sitting Fetus Heart Rate Present A 144 Present Fetus Movement A Yes Comments 34 weeks, some growth lag, w ill check US Flowsheet Date 10/24/2016 Mclaughlin Score Blood Edema Fundus Height Fundus Units Glucose Ketones Leukocytes Nitrite Labor Signs Protein Cervic Dilation Cervic Effacement Cervic Station 30 cm Type Weight in lbs Pre/Post Dialysis Refused 145.6916174048 BP Diastolic BP Location Tested BP Systolic BP Type 64 105 sitting Fetus Heart Rate Present A 144 Present Fetus Movement A Yes Comments Was onL&D this am for ctx. g ot a terb shot discussed ctx frequency for real labor Menstrual History Last Menstrual Date Menses Monthly On Bcp Conception Prior Menses Frequency Hcg Plus Date Menarche Onset Age 0502/18/2016 Delivery Information Delivery Date Delivery Type Labor Anesthesia Weeks Gestation Incision Type Labor Labor Length Hrs Delivered By Post Complications Tubal Sterilization Discharge Date Comments [address] [facility] idural 35.5 true 16 José Antonio Negrete MD 10/29/2016 Discharge Information Feeding Method Contraceptive Method Maternal HG B and HCT Levels Breast
--- OUTSIDE RECORDS SUMMARY | 2024-11-29 14:13 | XMS_ITS | Referral Summary ---
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 sagittal MPR images reviewed. All images stored on PACS. Automated exposure control was used as a dose optimization technique for this examination. COMPARISON: None. REFERENCE: Per ACR white paper recommendations, unless otherwise specified no follow-up imaging is recommended for incidental renal and adrenal lesions per consensus recommendations based on imaging criteria. Further lab evaluation could be pursued based on clinical findings. FINDINGS: The sensitivity for detection of solid visceral lesions is diminished without the use of intravenous contrast. CHEST NECK BASE: Unremarkable on this non-contrast CT. HARDWARE/LINES/TUBES: None. LYMPH NODES: No axillary, mediastinal or hilar lymphadenopathy is seen by CT size criteria on this non-contrast CT. MEDIASTINUM/BRAULIO: No masses seen. The aorta and great vessels appear unremarkable on this non-contrast CT. There is no significant coronary artery calcification. Heart size is normal. There is no significant pericardial effusion. PLEURA: No effusion. No pneumothorax. LUNGS: The lungs are clear. The central airways are normal. CHEST WALL/BREAST: Unremarkable. MUSCULOSKELETAL: No acute abnormality. OTHER: No other significant abnormality. ABDOMEN/PELVIS LIVER: The liver is normal in attenuation without focal lesion. GALLBLADDER: No stones identified. Normal wall. No evidence of pericholecystic fluid. BILE DUCTS: No intrahepatic or extrahepatic ductal dilatation. PANCREAS: Normal. SPLEEN: Normal size. No focal lesions. ADRENALS: Normal. KIDNEYS/URINARY TRACT: No identified significant cystic or solid masses. No visualized stones. No hydronephrosis or hydroureter. The bladder is collapsed. VASCULATURE: No acute abnormality seen. No abdominal aortic aneurysm. The vessels appear grossly unremarkable on this noncontrast CT. GI: The stomach appears normal. There is no significant small bowel dilation or visible thickening. No gross colonic abnormalities identified. The appendix is normal. PERITONEUM/MESENTERY: No ascites or free air. LYMPH NODES: There are no enlarged lymph nodes seen by CT size criteria. REPRODUCTIVE: Uterus and adnexae are unremarkable. MUSCULOSKELETAL: No significant abnormality. OTHER: No other abnormality. IMPRESSION: No acute abnormality seen in the chest, abdomen or pelvis. The vessels appear grossly unremarkable on this noncontrast CT. Changes of vasculitis may not be visible on noncontrast CT. If there is further clinical suspicion for vasculitis CTA of the chest, abdomen and pelvis may be helpful for further evaluation. THIS IS AN ELECTRONICALLY VERIFIED FINAL REPORT 11/14/2024 1:13 AM - Electronically signed by Barbara Burkett M.D. SN: SN Report ID: [id number] Reading Location: [place] [address] Procedure Note Barbara Burkett MD - 11/14/2024 EXAM DESCRIPTION: CT CHEST ABDOMEN PELVIS WO CONTRAST REASON FOR STUDY: Vasculitis suspected, large vessel, hypokalemia,elevated cbc, weakness Vasculitis suspected, large vessel; hypokalemia, elevated cbc, weakness TECHNIQUE: CT scan of the chest, abdomen, and pelvis performed without intravenous and without oral contrast using helical scanning technique. Reconstructed coronal and sagittal MPR images reviewed. All images storedon PACS. Automated exposure control was used as a dose optimizationtechnique for this examination. COMPARISON: None. REFERENCE: Per ACR white paper recommendations, unless otherwise specifiedno follow-up imaging is recommended for incidental renal and adrenal lesionsper consensus recommendations based on imaging criteria. Further labevaluation could be pursued based on clinical findings. FINDINGS: The sensitivity for detection of solid visceral lesions is diminishedwithout the use of intravenous contrast. CHEST NECK BASE: Unremarkable on this non-contrast CT. HARDWARE/LINES/TUBES: None. LYMPH NODES: No axillary, mediastinal or hilar lymphadenopathy is seen byCT size criteria on this non-contrast CT. MEDIASTINUM/BRAULIO: No masses seen. The aorta and great vessels appear unremarkable on this non-contrast CT. There is no significant coronary artery calcification. Heart size is normal. There is no significant pericardial effusion. PLEURA: No effusion. No pneumothorax. LUNGS: The lungs are clear. The central airways are normal. CHEST WALL/BREAST: Unremarkable. MUSCULOSKELETAL: No acute abnormality. OTHER: No other significant abnormality. ABDOMEN/PELVIS LIVER: The liver is normal in attenuation without focal lesion. GALLBLADDER: No stones identified. Normal wall. No evidence of pericholecystic fluid. BILE DUCTS: No intrahepatic or extrahepatic ductal dilatation. PANCREAS: Normal. SPLEEN: Normal size. No focal lesions. ADRENALS: Normal. KIDNEYS/URINARY TRACT: No identified significant cystic or solid masses.No visualized stones. No hydronephrosis or hydroureter. The bladder is collapsed. VASCULATURE: No acute abnormality seen. No abdominal aortic aneurysm.The vessels appear grossly unremarkable on this noncontrast CT. GI: The stomach appears normal. There is no significant small bowel dilation or visible thickening. No gross colonic abnormalitiesidentified. The appendix is normal. PERITONEUM/MESENTERY: No ascites or free air. LYMPH NODES: There are no enlarged lymph nodes seen by CT size criteria. REPRODUCTIVE: Uterus and adnexae are unremarkable. MUSCULOSKELETAL: No significant abnormality. OTHER: No other abnormality. IMPRESSION: No acute abnormality seen in the chest, abdomen or pelvis. The vessels appear grossly unremarkable on this noncontrast CT. Changesof vasculitis may not be visible on noncontrast CT. If there is furtherclinical suspicion for vasculitis CTA of the chest, abdomen and pelvis may behelpful for further evaluation. THIS IS AN ELECTRONICALLY VERIFIED FINAL REPORT 11/14/2024 1:13 AM - Electronically signed by Barbara Burkett M.D. SN: SN Report ID: [id number] Reading Location: [id number] Norman Garvey MD IMG CT PROCEDURES Final Res ult * (ABNORMAL) Potassium (11/13/2024 9:49 PM PIPE [employer]) Potassium, pl 2.4(C) 3.3 - 4.9 mmol/L Comment:Critical Result call ed by [email or web address] at 2024-11-13 22:56:05. Result Read Back by Sarah Brito ED Blood 11/13/2024 9:49 PM [employer] 11/13/2024 9:51 PM [employer] Norman Garvey MD LAB BLOOD ORDERABLES Final Result [facility] (MICHAEL) 1 [facility] Department [place] [address] * CT Head WO Contrast (11/13/2024 6:58 PM [employer]) Anatomical Region Laterality Modality Head and Neck N/A Computed Tomogra phy 11/13/2024 8:03 PM [employer] Narrative 11/13/2024 8:14 PM [employer] EXAM DESCRIPTION: CT HEAD WO CONTRAST REASON FOR STUDY: Headache, no red flags, Mental status change, unknown cause Pt presents for a mental health evaluation, patient denied headache, nausea, blurry vision or visual changes at this time TECHNIQUE: Axial images acquired through the brain without intravenous contrast. Images stored on PACS. Automated exposure control was used as a dose optimization technique for this examination. COMPARISON: None FINDINGS: BRAIN: No hemorrhage, edema or mass effect. No recent infarct. Normal white matter. EXTRA-AXIAL SPACES: No fluid collections. No masses. CALVARIUM: No fracture. SINUSES/MASTOIDS: No fluid or mucosal thickening. ORBITS: No significant abnormality. OTHER: No other significant abnormality. IMPRESSION: No acute intracranial findings. THIS IS AN ELECTRONICALLY VERIFIED FINAL REPORT 11/13/2024 8:14 PM - Electronically signed by Jeyson Kauffman M.D. KT: DOUG Report ID: [id number] Reading Location: [place] [address] Procedure Note Jeyson Kauffman MD - 11/13/2024 EXAM DESCRIPTION: CT HEAD WO CONTRAST REASON FOR STUDY: Headache, no red flags, Mental status change, unknowncause Pt presents for a mental health evaluation, patient denied headache,nausea, blurry vision or visual changes at this time TECHNIQUE: Axial images acquired through the brain without intravenous contrast. Images stored on PACS. Automated exposure control was used asa dose optimization technique for this examination. COMPARISON: None FINDINGS: BRAIN: No hemorrhage, edema or mass effect. No recent infarct. Normal white matter. EXTRA-AXIAL SPACES: No fluid collections. No masses. CALVARIUM: No fracture. SINUSES/MASTOIDS: No fluid or mucosal thickening. ORBITS: No significant abnormality. OTHER: No other significant abnormality. IMPRESSION: No acute intracranial findings. THIS IS AN ELECTRONICALLY VERIFIED FINAL REPORT 11/13/2024 8:14 PM - Electronically signed by Jeyson Kauffman M.D. KT: KT Report ID: [id number] Reading Location: [place] [address] Norman Garvey MD IMG CT PROCEDURES Final Res ult * eGFR (11/13/2024 6:37 PM P[employer]) eGFR >90 >=60 mL/min/1. 73 m2 Comment: Interpretive Data Reference Interval Normal >/= 90 mL/min/1.73m2 Mildly decreased* 60 - 89 mL/min/1.73m2 Mildly to moderately decreased 45 - 59 mL/min/1.73m2 Moderately to severely decreased 30 - 44 mL/min/1.73m2 Severely decreased 15 - 29 mL/min/1.73m2 Kidney Failure < 15 mL/min/1.73m2 *Relative to young adult level Estimated glomerular filtration rate is determined by the 2020 CKD-EPI equation recommended by the National Kidney Foundation (A Unifying Approach to GFR Estimation: Recommendations of the NKF-ASK Task Force on Reassessing the Inclusion of Race in Diagnosing Kidney Disease, JASN 2020). The CKD-EPI equation should not be used for patients with unstable renal function and has not been validated in children and those over 70. Current interpretive data was last reviewed 2021. Blood 11/13/2024 6:37 PM [employer] 11/13/2024 9:40 PM [employer] Norman Garvey MD LAB BLOOD ORDERABLES Final Result [facility] [facility] Department [place] [address] * eGFR (11/13/2024 6:37 PM [employer]) eGFR >90 >=60 mL/min/1. 73 m2 Comment: Interpretive Data Reference Interval Normal >/= 90 mL/min/1.73m2 Mildly decreased* 60 - 89 mL/min/1.73m2 Mildly to moderately decreased 45 - 59 mL/min/1.73m2 Moderately to severely decreased 30 - 44 mL/min/1.73m2 Severely decreased 15 - 29 mL/min/1.73m2 Kidney Failure < 15 mL/min/1.73m2 *Relative to young adult level Estimated glomerular filtration rate is determined by the 2020 CKD-EPI equation recommended by the National Kidney Foundation (A Unifying Approach to GFR Estimation: Recommendations of the NKF-ASK Task Force on Reassessing the Inclusion of Race in Diagnosing Kidney Disease, JASN 2020). The CKD-EPI equation should not be used for patients with unstable renal function and has not been validated in children and those over 70. Current interpretive data was last reviewed 2021. Blood 11/13/2024 6:37 PM [employer] 11/13/2024 7:06 PM [employer]IPE Norman Garvey MD LAB BLOOD ORDERABLES Final Result [facility] ([place]) 1 [facility] Department [place] [address] * (ABNORMAL) Differential, auto (11/13/2024 6:37 PM PIPE [employer]) Neutrophil abs 11.0(H) 1.5 - 6.5 K/cumm Imm gran abs 0.1 0.0 - 0.1 K/cumm [facility] (MICHAEL) Lymphocyte abs 1.6 0.8 - 3.3 K/cumm [facility] (MICHAEL) Monocyte abs 1.0(H) 0.2 - 0.8 K/cumm [facility] (MICHAEL) Eosinophil abs 0.1 0.0 - 0.5 K/cumm [facility] (MICHAEL) Basophil abs 0.1 0.0 - 0.1 K/cumm [facility] (MICHAEL) Neutrophil pct 80.2 % [facility] (MICHAEL) Comment: Interpretive Data Percent cell count reference ranges are not reported, since discordance with absolute values may lead to misinterpretation of CBC data. Current Interpretive Data was last revised on 2018. Imm gran pct 0.4 % [facility] (MICHAEL) Comment: Interpretive Data Percent cell count reference ranges are not reported, since discordance with absolute values may lead to misinterpretation of CBC data. Current Interpretive Data was last revised on 2018. Lymphocyte pct 11.3 % [facility] (MICHAEL) Comment: Interpretive Data Percent cell count reference ranges are not reported, since discordance with absolute values may lead to misinterpretation of CBC data. Current Interpretive Data was last revised on 2018. Monocyte pct 7.3 % [facility] (MICHAEL) Comment: Interpretive Data Percent cell count reference ranges are not reported, since discordance with absolute values may lead to misinterpretation of CBC data. Current Interpretive Data was last revised on 2018. Eosinophil pct 0.4 % [facility] (MICHAEL) Comment: Interpretive Data Percent cell count reference ranges are not reported, since discordance with absolute values may lead to misinterpretation of CBC data. Current Interpretive Data was last revised on 2018. Basophil pct 0.4 % [facility] (MICHAEL) Comment: Interpretive Data Percent cell count reference ranges are not reported, since discordance with absolute values may lead to misinterpretation of CBC data. Current Interpretive Data was last revised on 2018. Blood 11/13/2024 6:37 PM [employer] 11/13/2024 7:06 PM [employer] Norman Garvey MD LAB BLOOD ORDERABLES Final Result Performing Organization Address City/[facility]/ZIP Co de Phone Number [facility] HAO (MICHAEL) 1 [facility] Department [place] [address] * Thyroid Function Kidder (11/13/2024 6:37 PM PIPE [employer]) TSH 0.53 0.30 - 4.20 mcIUnit/mL Blood 11/13/2024 6:37 PM [employer] 11/13/2024 7:06 PM [employer] Norman Garvey MD LAB BLOOD ORDERABLES Final Result [facility] (MICHAEL) 1 [facility] Department [place] [address] * (ABNORMAL) Urinalysis reflex to microscopic and culture Urine, clean voided (11/13/2024 6:37 PM [employer]) Color, ur Yellow Yellow Clarity, ur Turbid(A) Clear [facility] (MICHAEL) Specific gravity, ur 1.007 1.003 - 1.030 [facility] (MICHAEL) pH, urine 7.5 [facility] (MICHAEL) Comment: Interpretive Data U rine pH is affected by diet, medications, systemic acid-base disturbances, and renal tubular function. pH may affect urinary stone formation. For example, urine pH below 6.0 may help reduce the tendency for calcium phosphate stones and pH greater than 6.0 may reduce the tendency for uric acid stone formation. Source: [facility] Current Interpretive Data was last revised on 2017 Protein, ur ql Trace Negative [facility] (MICHAEL) Glucose, ur ql Negative Negative [facility] (MICHAEL) Ketones, ur Negative Negative [facility] (MICHAEL) Bilirubin, ur Negative Negative [facility] (MICHAEL) Blood, ur Trace(A) Negative [facility] (MICHAEL) Urobilinogen, ur <2.0 <2.0 mg/dL [facility] (MICHAEL) Nitrite, ur Negative Negative [facility] (MICHAEL) Leukocyte esterase, ur 4+(A) Negative [facility] (MICHAEL) UA reflex comment Reflex to microscopic UA will be performed. [facility] (MICHAEL) Urine, clean voided 11/13/2024 6:37 PM [employer] 11/13/2024 7:05 PM [employer] us Norman Garvey MD LAB MICROBIOLOGY - GENERAL ORDERABLES Final Result [facility] (MICHAEL) 1 [facility] Department [place] [address] * (ABNORMAL) CBC with auto differential (11/13/2024 6:37 PM [employer]) WBC 13.7(H) 3.8 - 9.9 K/cumm Hgb 14.5 11.9 - 15.5 g/dL [facility] (MICHAEL) Hct 42.5 35.6 - 45.5 % [facility] (MICHAEL) Plt 426(H) 150 - 400 K/cumm [facility] (MICHAEL) MPV 8.8(L) 9.1 - 12.3 fL [facility] (MICHAEL) RBC 4.65 3.90 - 5.20 M/cumm [facility] (MICHAEL) MCV 91.4 81.3 - 96.4 fL [facility] (MICHAEL) MCH 31.2 27.1 - 33.3 pg [facility] (MICHAEL) MCHC 34.1 32.3 - 35.7 g/dL [facility] (MICHAEL) RDW CV 11.9 11.1 - 14.9 % [facility] (MICHAEL) RDW SD 39.9 35.7 - 48.1 fL [facility] (MICHAEL) NRBC abs 0.00 0.00 - 0.01 K/cumm [facility] (MICHAEL) Blood 11/13/2024 6:37 PM [employer] 11/13/2024 7:06 PM [employer] Norman Garvey MD LAB BLOOD ORDERABLES Final Result [facility] (MICHAEL) 1 [facility] Department of Laboratories [place], [place] [id number] * (ABNORMAL) Drugs of Abuse Screen, Urine without Confirmation (11/13/2024 6:37 PM [employer]) Amphetamine, ur Not Detected CutOff 500ng/mL Comment: Interpretive Data - Amphetamines: Samples containing greater than 500 ng/mL d-methamphetamine or other cross-reacting amphetamine compounds are reported as positive. Amphetamine immunoassays are subject to significant false positive rates due to cross-reactivity of non-amphetamine drugs. Confirmatory testing required for definitive results. Current Interpretive Data was last reviewed 2023. Barbiturates, ur Not Detected CutOff 200ng/mL [facility] (MICHAEL[facility] Comment: Interpretive Data - Barbiturates: Samples containing greater than 200 ng/mL secobarbital or other cross-reacting barbiturate compounds are reported as positive. False positive and false negative results are possible. Confirmatory testing required for definitive results. Current Interpretive Data was last reviewed 2023. Benzodiazepines, ur Not Detected CutOff 100ng/mL [facility] (MICHAEL) Comment: Interpretive Data - Benzodiazepines: Samples containing greater than 100 ng/mL nordiazepam or other cross-reacting compounds are reported as positive. False positive and false negative results are possible. Confirmatory testing required for definitive results. Current Interpretive Data was last reviewed 2023. Cannabinoids, ur Screen Positive, presumptive (A) CutOff 50 ng/mL [facility] (MICHAEL) Comment: Interpretive Data - Cannabinoids: Samples containing greater than 50 ng/mL delta-9 THC -COOH or other cross- reacting compounds are reported as positive. False positive and false negative results are possible. Confirmatory testing required for definitive results. Current Interpretive Data was last reviewed 2023. Cocaine, ur Not Detected CutOff 150ng/mL [facility] (MICHAEL) Comment: Interpretive Data - Cocaine: Samples containing greater than 150 ng/mL benzoylecgonine or other cross- reacting compounds are reported as positive. False positive and false negative results are possible. Confirmatory testing required for definitive results. Current Interpretive Data was last reviewed 2023. Fentanyl, Ur Not Detected CutOff 5 ng/mL [facility] (MICHAEL) Comment: Interpretive Data - Fentanyl: Samples containing greater than 5 ng/mL norfentanyl, fentanyl, or other cross-reacting fentanyl compounds are reported as positive. False positive and false negative results are possible. Confirmatory testing required for definitive results. Current Interpretive Data was last reviewed 2023. Methadone, ur Not Detected CutOff 300ng/mL [facility] (MICHAEL) Comment: Interpretive Data - Methadone: Samples containing greater than 300 ng/mL d,l-methadone or other cross-reacting compounds are reported as positive. False positive and false negative results are possible. Confirmatory testing required for definitive results. Current Interpretive Data was last reviewed 2023. Opiates, ur Not Detected CutOff 300ng/mL [facility] (MICHAEL) Comment: Interpretive Data - Opiates: Samples containing greater than 300 ng/mL morphine or other cross-reacting compounds are reported as positive. False positive and false negative results are possible. Confirmatory testing required for definitive results. Current Interpretive Data was last reviewed 2023. Oxycodone, ur Not Detected CutOff 100ng/mL [facility] (MICHAEL) Comment: Interpretive Data - Oxycodone: Samples containing greater than 100 ng/mL oxycodone or other cross-reacting compounds are reported as positive. False positive and false negative results are possible. Confirmatory testing required for definitive results. Current Interpretive Data was last reviewed 2023. Phencyclidine, ur Not Detected CutOff 25 ng/mL [facility] (MICHAEL) Comment: Interpretive Data - Phencyclidine: Samples containing greater than 25 ng/mL phencyclidine or other cross-reacting compounds are reported as positive. False positive and false negative results are possible. Confirmatory testing required for definitive results. Current Interpretive Data was last reviewed 2023. Urine Creatinine 93 mg/dL [facility] (MICHAEL) Comment: Interpretive Data Urine Creatinine: < 10 mg/dL is extremely dilute = or > 10 but < 20 mg/dL is dilute = or > 20 mg/dL is normal Current Interpretive Data was last revised on 2017. Urine 11/13/2024 6:37 PM [employer] 11/13/2024 7:56 PM [employer] Narrative [facility] ([place]) - 11/13/2024 8:10 PM [employer] Drug of Abuse screening is performed by immunoassay for medical purposes only. This is not to be used for Pain Management purposes. us Norman Garvey MD LAB URINE ORDERABLES Final Result [facility] ([place]) 1 [facility] Department [place] [address] * hCG, urine, qualitative (11/13/2024 6:37 PM [employer]) HCG, ur Negative Negative Urine 11/13/2024 6:37 PM [employer] 11/14/2024 12:12 AM [employer] us Ronny Robledo MD LAB URINE ORDERABLES Final Re sult Performing Organization Address City/[facility]/ZIP Co de Phone Number [facility] B[facility] ([place]) 1 [place] [address] * (ABNORMAL) Urinalysis, microscopic only (11/13/2024 6:37 PM PIPE [employer]) WBC, ur 21-50(A) 0 - 5 /HPF RBC, ur 6-10(A) 0 - 2 /HPF [facility] Epithelial cells, squamous, ur 21-50(A) 0 - 5 /HPF [facility] ([place]) Bacteria, ur Trace(A) [facility] ([place]) Mucous, ur Present(A) [facility] ([place]) Culture Reflex Comment Reflex to urine culture will be performed. [facility] ([place]) Urine, clean voided 11/13/2024 6:37 PM [employer] 11/13/2024 7:05 PM [employer] Norman Garvey MD LAB URINE ORDERABLES Final Result Performing Organization Address [facility]/ZIP Co de Phone Number BYRON BUI ([place]) 1 [facility] [place] [address] * (ABNORMAL) Erythrocyte sedimentation rate (11/13/2024 6:37 PM [employer]) Erythrocyte sedimentation rate 23(H) 1 - 20 mm/hr Blood 11/13/2024 6:37 PM [employer] 11/13/2024 7:06 PM [employer] Norman Garvey MD LAB BLOOD ORDERABLES Final Result [facility] ([place]) 1 [place] [address] * Urine culture Urine, clean voided (11/13/2024 6:37 PM [employer]) Report Final Report: Growth indicative of contamination with periurethral lian. Please submit a new specimen with special attention given to the collection process and to prompt transport to the laboratory. Comment:Testing performed by : [facility], [address] [place] [address] Organism GROWTH INDICATES CONTAM WITH PERIURETHRAL LIAN. [facility] (MICHAEL) Urine, clean voided 11/13/2024 6:37 PM [employer] 11/13/2024 10:29 PM [employer] Narrative [facility] (MICHAEL) - 11/15/2024 4:37 PM [employer] Urine culture reflexed based upon urinalysis results. Testing performed by [facility] ([phone]) Norman Garvey MD LAB MICROBIOLOGY - GENERAL ORDERABLES Final Result Performing Organization Address City/[facility]/ZIP Co de Phone Number [facility] BUI (MICHAEL) 1 [facility] Department [place] [address] * Magnesium (11/13/2024 6:37 PM [employer]) Pathologist [facility] Magnesium 2.0 1.4 - 2.5 mg/dL Blood 11/13/2024 6:37 PM PIPE [employer]TER G[employer] PIPE 11/13/2024 9:40 PM PIPE FITTER GAS PIPE Norman Garvey MD LAB BLOOD ORDERABLES Final Result [facility] (MICHAEL) 1 [facility] [place] [address] * (ABNORMAL) Renal function panel (11/13/2024 6:37 PM PIPE FITTER GAS PIPE) Sodium 139 135 - 145 mmol/L Potassium, pl 2.4(C) 3.3 - 4.9 mmol/L [facility] (MICHAEL) Comment:Critical Result call ed by [email or web address] at 2024-11-13 21:54:47. Result Read Back by Sarah Brito ED Chloride 95(L) 97 - 110 mmol/L [facility] (MICHAEL) CO2 28 22 - 32 mmol/L [facility] (MICHAEL) Anion gap 16(H) 2 - 15 mmol/L [facility] (MICHAEL) BUN 6 6 - 25 mg/dL [facility] (MICHAEL) Creatinine 0.61 0.60 - 1.10 mg/dL [facility] (MICHAEL) Glucose 113 70 - 199 mg/dL [facility] (MICHAEL) Comment: Interpretive Data Fasting glucose >/= 126 mg/dl is diagnostic for diabetes. Fasting is defined as no caloric intake for at least 8 hours. Fasting glucose between 100 mg/dl to 125 mg/dl is diagnostic of prediabetes. In a patient with classic symptoms of hyperglycemia or hyperglycemic crisis, a random glucose >/= 200 mg/dl is diagnostic for diabetes. In the absence of unequivocal hyperglycemia, results should be confirmed by repeat testing. The classification and Diagnosis of Diabetes Diabetes Care 2021; 46: S19-S40. Current interpretive data was last revised 2022. Calcium 10.1 8.5 - 10.3 mg/dL [facility] (MICHAEL) Phosphorus, pl 2.1(L) 2.3 - 4.5 mg/dL [facility] (MICHAEL) Albumin 4.5 3.5 - 5.0 g/dL [facility] (MICHAEL) Blood 11/13/2024 6:37 PM PIPE FITTER GAS PIPE 11/13/2024 9:40 PM PIPE FITTER GAS PIPE Narrative [facility] (MICHAEL) - 11/13/2024 9:54 PM PIPE FITTER GAS PIPE Confirm potassium us Norman Garvey MD LAB BLOOD ORDERABLES Final Result [facility] ([facility] 1 [facility] Department [place] [address] * (ABNORMAL) Comprehensive metabolic panel (11/13/2024 6:37 PM PIPE FITTER GAS PIPE) Sodium 137 135 - 145 mmol/L Potassium, pl 2.1(C) 3.3 - 4.9 mmol/L [facility] (MICHAEL) Comment:Critical Result call ed by [email or web address] at 2024-11-13 19:47:30. Result Read Back by Sarah Brito ED Chloride 94(L) 97 - 110 mmol/L [facility] (MICHAEL) CO2 31 22 - 32 mmol/L [facility] (MICHAEL) Anion gap 12 2 - 15 mmol/L [facility] (MICHAEL) BUN 5(L) 6 - 25 mg/dL [facility] (MICHAEL) Creatinine 0.61 0.60 - 1.10 mg/dL [facility] (MICHAEL) Glucose 114 70 - 199 mg/dL [facility] (MICHAEL) Comment: Interpretive Data Fasting glucose >/= 126 mg/dl is diagnostic for diabetes. Fasting is defined as no caloric intake for at least 8 hours. Fasting glucose between 100 mg/dl to 125 mg/dl is diagnostic of prediabetes. In a patient with classic symptoms of hyperglycemia or hyperglycemic crisis, a random glucose >/= 200 mg/dl is diagnostic for diabetes. In the absence of unequivocal hyperglycemia, results should be confirmed by repeat testing. The classification and Diagnosis of Diabetes Diabetes Care 202; 46: S19-S40. Current interpretive data was last revised 2022. Calcium 9.8 8.5 - 10.3 mg/dL [facility] (MICHAEL) Bilirubin, total 0.5 0.1 - 1.2 mg/dL [facility] (MICHAEL) Protein, pl 7.6 6.5 - 8.5 g/dL [facility] (MICHAEL) Albumin 4.6 3.5 - 5.0 g/dL [facility] (MICHAEL) Alk phos 54 40 - 130 Units/L [facility] (MICHAEL) ALT 16 7 - 45 Units/L [facility] (MICHAEL) AST 14 10 - 45 Units/L [facility] (MICHAEL) Blood 11/13/2024 6:37 PM PIPE FITTER GAS PIPE 11/13/2024 7:06 PM PIPE FITTER GAS PIPE Norman Garvey MD LAB BLOOD ORDERABLES Final Result [facility] (MICHAEL) 1 [facility] Department [place] [address] from Last 3 Months Insurance [employer] Member Subscriber Plan / Payer (Ef fective 2019-Present) Name:Debora Ramirez Member ID:[id number] Relation to Subscriber:Child Name:JENNIFER RAMIREZ Subscriber ID:[id number] Date of :1970 (Home) Address: [address] [place] [id number] Payer ID:[id number] (NAIC) Type:Dojo Address: [address] [employer] Member Subscriber Plan / Payer (Ef fective 2018-Present) Name:Debora Ramirez Jorge Member ID:[id number] Relation to Subscriber:Child Name:JENNIFER RAMIREZ Subscriber ID:[id number] Date of :1970 (Home) Address: [address] [place] [id number] Payer ID:[id number] (NAIC) Type:Dojo Address: [address] [facility] Advance Directives For more information, please contact: [phone] * Full Code (Latest Code Status on File) Date Activated Date Inactivated Comments 09/08/2021 6:10 PM 09/10/2021 7:41 PM * Full Code Date Activated Date Inactivated Comments 09/08/2021 2:59 AM 09/08/2021 6:10 PM Full CPR in case of cardiopulmonary arrest Care Teams Shot Coat Tender Relationship Specialty Start Date End Date No, Physician PCP - General 02/19/17
--- OUTSIDE RECORDS SUMMARY | 2024-11-29 14:14 | XMS_ITS | Patient Health Summary ---
Author Organization [facility] [employer] Address [address] [place] [address] Care Team Providers Care Email Engineer Name Role Phone Unavailable Primary Care Provider Unavailabl e Note from [facility],non-owned Affiliates and Associated Physician Practices is amultiple site organization consisting of ambulatory clinics and hospital sitesin [place], [place], [place] and [place]. This disclosure is being madepursuant to the Care Everywhere program and may not contain all information available regarding this patient. Last updated 18.[facility] [employer] Allergies No known active allergies Medications * Be aware that medications may not be up to date on this document. Alwaysverify current medications with the patient. * Vit-Fe Fumarate-FA ( VITAMIN) 28-0.8 MG tablet Take 1 tablet by mouth once daily Reasons: * valACYclovir (VALTREX) 500 MG tablet(Started 08/21/2021) * Blood Glucose Monitoring Suppl ([employer] VERIO FLEX SYSTEM) w/Device KIT (Started 08/22/2021) Use 1 kit as directed * OneTouch Delica Lancets 30G MISC(Started 08/22/2021) Use 1 Each 4 times daily 1 refill by 08/22/2022 * famotidine (PEPCID) 20 MG tablet(Started 08/22/2021) Take 1 (one) tablet by mouth 2 times daily Reasons: Gastroesophageal Reflux Disease 5 refills by 08/22/2022 * blood glucose test strip(Started 09/05/2021) Use 1 (one) strip 4 times daily 1 refill by 09/05/2022 * OneTouch Delica Lancets 33G MISC(Started 09/05/2021) Use 1 Each 4 times daily 1 refill by 09/05/2022 Active Problems Problem Noted Date Diagnosed Date 38 weeks gestation of 09/05/2021 Supervision of high-risk of paris limon 08/08/2021 34 weeks gestation of 08/08/2021 Gestational diabetes mellitus (GDM) in third tri mester 07/11/2021 Marijuana use 07/11/2021 Tobacco use during 06/13/2021 Second 06/12/2021 History of delivery 04/30/2021 Anxiety and depression Substance use Resolved Problems Problem Noted Date Diagnosed Date Resolved Date Smoker 06/12/2021 06/12/2021 Immunizations * HEP A VACCINE, ADULT(Given 12/29/2018) Social History Tobacco Use Types Packs/Day Years Used Date Smoking Tobacco: Every Day Cigarettes 0.3 10 Smokeless Tobacco: Never Tobacco Cessation:Ready to Q uit: Yes; Counseling Given: Yes Alcohol Use Standard Drinks/Week Comments Not Currently 0 (1 standard drink = 0.6 oz pure alcohol) first month prior to . Previous alcohol abuse. Sex and Gender Information Value Date Recorded Sex Assigned at Not on file Gender Identity Not on file Sexual Orientation Not on file Last Filed Vital Signs Vital Sign Reading Time Taken Comments Blood Pressure 113/66 09/07/2021 1:35 PM MICROMATIC HONE OPERATOR Pulse 82 09/07/2021 1:35 PM MICROMATIC HONE OPERATOR Temperature 36.8 C (98.2 F) 10/10/2019 12:58 PM MICROMATIC HONE OPERATOR Respiratory Rate 18 10/10/2019 12:5 8 PM MICROMATIC HONE OPERATOR Oxygen Saturation 99% 09/05/2021 1:50 PM MICROMATIC HONE OPERATOR Inhaled Oxygen Concentration - - Weight 78.4 kg (172 lb 12.8 oz) 09/05/2021 1:50 PM MICROMATIC HONE OPERATOR Height 160 cm (5' 3 ) 06/13/2021 11:21 AM CDT Body Mass Index 30.61 06/13/2021 11:21 AM CDT Procedures * BIOPHYSICAL PROFILE W NST(Performed 09/05/2021) Performed for Maternal tobacco use in third trimester (HCC), Diet controlled gestational diabetes mellitus (GDM) in third trimester (HCC), Substance use, History of delivery, 36 weeks gestation of (HCC) * SONOGRAM - COMPLETE(Performed 08/22/2021) Performed for Maternal tobacco use in third trimester (HCC), Diet controlled gestational diabetes mellitus (GDM) in third trimester (HCC), Substance use, History of delivery, 36 weeks gestation of (HCC) * SONOGRAM - COMPLETE(Performed 08/08/2021) Performed for Diet controlled gestational diabetes mellitus (GDM) in third trimester (HCC) * SONOGRAM - COMPLETE(Performed 07/11/2021) Performed for History of delivery * SONOGRAM - COMPLETE(Performed 06/13/2021) Performed for History of delivery * CULTURE THROAT(Performed 03/12/2017) Performed for Acute pharyngitis, unspecified etiology * STREP A SCREEN - POINT OF CARE (AMB) STL(Performed 03/12/2017) Performed for Acute pharyngitis, unspecified etiology Results * BIOPHYSICAL PROFILE W NST (09/05/2021 2:50 PM MICROMATIC HONE OPERATOR) Anatomical Region Laterality Modality Other 09/05/2021 2:50 PM MICROMATIC HONE OPERATOR Narrative 09/05/2021 4:24 PM MICROMATIC HONE OPERATOR KRISTINE Peck [facility] PHONE: FAX: Name: TRENTON RAMIREZ. No: [id number] Study Date: 09/05/2021 2:50pm , Age: 06 1995, 26 Pregnancies: 2, Para 1 Height: 62 in Weight: 157 lb LMP: 12/11/2020 GA by LMP: 38w2d GA by Base: 38w2d KAREEN: 09/17/2021 GA by US: 36w5d KAREEN: 09/28/2021 GA Selected: 38w2d (LMP) KAREEN: 09/17/2021 Referring MD: Reggie Lowe MD Tumblers Supervisor: Yamel Curry, FAMILIA, RDCS CPT4: 17663,23021 BMI: 28.71 Hist/Ind: Hx 35w5d delivery Tobacco use Marijuana use Anxiety GDMA1 MEASUREMENTS & AGE GROWTH EVALUATION Measurement GA Range Srce %for GA Ratios ----- ---- ------- BPD 8.9 cm 36w1d (45v2d-94n0o) Hadl BPD 17% FL/BPD 0.81 (0.71 - 0.87) HC 32.3 cm 36w3d (58s4c-61z4p) Hadl HC 4% FL/AC 0.21 (0.20 - 0.24) AC 35.3 cm 39w2d (33h8q-67w5j) Hadl AC 88% HC/AC 0.91 (0.90 - 1.09) FL 7.2 cm 37w0d (03v1s-86q6o) Hadl FL 24% CI 0.80 (0.70 - 0.86) HL 6.4 cm 37w0d (58d7f-90c0a) Santos HL 27% GA for sonogram 36w5d (36c5q-27b4l) Weight Estimate: based on (BPD,HC,AC,FL) Hadlock Weight: 3376 gm (2883-3869gm) Had : 7lbs, 7oz Normal: 3296 gm (2472-4120gm) Had Wt% 57% for 38w2d Heart Rate: 143 bpm Amniotic Fluid Index: 16.0cm (07.3-23.5) Q1: 3.3cm Q2: 4.3cm Q3: 4.7cm Q4: 3.6cm Biophysical Profile: 05/13 Breathin Tone: 2 Movement: 2 AFV: 2 EVAL, PLACENTA Presentation: cephalic Placenta: posterior:right lateral Heart Rate: 143 bpm Amniotic Fluid Volume: normal CLINICAL SUMMARY Study Number: 5 Here today for interval growth ultrasound and testing secondary to GDM A1 on diet only. She also has an appointment with [facility] today. As noted she is also scheduled for induction of labor on Friday09/10/2021. A single fetus is seen in cephalic presentation. The measurements today are consistent with appropriate interval growth. The only lagging measurement is the head circumference but the measurements are still within the gestational age range. This is a normal variant due to head position and shape.The KAREEN is based on LMP and a prior ultrasound. The amniotic fluid volume is within normal limits. Normal-appearing posterior right lateral placenta. The FHR baseline was 130 bpm during today's reactive NST. The FHR variability was moderate. IMPRESSION: Single, live, intrauterine at 38w2d Amniotic fluid volume: within normal limits Biophysical profile: Reassuring 10/10 size is appropriate for the gestational age RECOMMEND: Induction scheduled for Friday. Reinforced importance of good glycemic control and outcome. Labor precautions along with kick counts. Thank you for allowing us the opportunity to care for your patient. Wallace Mosley DO <Electronic Signature> 09/05/2021 04:24pm Reggie Lowe MD [facility] ORDERABLES * SONOGRAM - COMPLETE (08/22/2021 3:52 PM MICROMATIC HONE OPERATOR) Only the most recent of4 resultswithin the time period is included. Anatomical Region Laterality Modality Other 08/22/2021 3:52 PM MICROMATIC HONE OPERATOR Narrative 08/22/2021 6:47 PM MICROMATIC HONE OPERATOR KRISTINE Peck [facility] PHONE: FAX: Pat. Name: TRENTON RAMIREZ. No: [id number] Study Date: 08/22/2021 3:52pm , Age: 06 1995, 26 Pregnancies: 2, Para 1 Height: 62 in Weight: 157 lb LMP: 12/11/2020 GA by LMP: 36w2d GA by Base: 36w2d KAREEN: 09/17/2021 GA Selected: 36w2d ([facility]) KAREEN: 09/17/2021 Referring MD: Reggie Lowe MD Tumblers Supervisor: Yamel Curry, RDGA, RD CPT4: 59492,[id number] BMI: 28.71 Hist/Ind: Hx 35w5d delivery Tobacco use Marijuana use Anxiety GDM ? arrhythmia on NST Heart Rate: 142 bpm Amniotic Fluid Index: 16.1cm (07.6-24.8) Q1: 4.6cm Q2: 3.9cm Q3: 4.2cm Q4: 3.3cm Biophysical Profile: 07/15 Breathin Tone: 2 NST: 2 Movement: 2 AFV: 2 EVAL, PLACENTA Presentation: cephalic Placenta: posterior Heart Rate: 142 bpm Amniotic Fluid Volume: normal CLINICAL SUMMARY Study Number: 4 A Single fetus is identified in the cephalic position. The amniotic fluid volume is normal. The placenta is posterior. NST: Concern for skipped beats on NST. Otherwise reactive. Doppler: sinus rhthym demonstrated with pulsed wave and M-mode Doppler techniques. IMPRESSION: Single live IUP at 36w2d. normal amniotic fluid. Reassuring testing. Reactive NST No demonstrated arrhythmia No major malformations demonstrated within the limitations of today's exam RECOMMEND: Continue testing ( as ordered). Reassess growth between 37-38 wks Thank you for the opportunity to participate in the care of your patient. Karishma Thomas MD <Electronic Signature> 08/22/2021 06:47pm Reggie Lowe MD [facility] ORDERABLES * CULTURE THROAT (03/12/2017 4:47 PM CDT) [facility] Comment: CULTURE, THROAT MICRO NUMBER: [id number] TEST STATUS: FINAL SPECIMEN SOURCE: THROAT SPECIMEN QUALITY: ADEQUATE RESULT: No oropharyngeal pathogens recovered. Test Performed at: [facility] [address] [id number] EVELIN MORALES MD Microbiology ENTIRE THROAT (SURFACE REGION OF NECK) / Unknown 03/12/2017 4:47 PM CDT 03/12/2017 11:28 PM CDT Courtney Disla APRN-COMMODITIES CLERK LAB - MICROBI OLOGY ORDERABLES [address] [address] * STREP A SCREEN - POINT OF CARE (AMB) STL (03/12/2017) Pathologist [facility] Strep A Rapid POCT Negative Negative Strep A Internal Control Present Lot # [id number] Expiration Date 12/18/2018 Throat ENTIRE THROAT (SURFACE REGION OF NECK) / Unknown 03/12/2017 Courtney Disla WIND TURBINE MACHINIST-COMMODITIES CLERK LAB - POINT O F CARE ORDERABLES
--- OUTSIDE RECORDS SUMMARY | 2024-11-29 14:14 | XMS_ITS | Clinical Summary ---
Author Organization [facility] Address [address] [place] [address] Care Team Providers Care Mophead Sewer Name Role Phone No, Physician Primary Care Provider [phone] Allergies No known active allergies Medications famotidine (PEPCID) 20 mg tablet Take 1 tablet (20 mg total) by mouth 2 (two) times a day. 30 tablet 8 Active OneTouch Verio Flex meter misc as directed 1 Active OneTouch Delica Plus Lancet 33 gauge misc 1 Active vit 52-inwy-dofzi-d vazquez 29 mg iron-1 mg -250 mg [...] 25 Active Problems No known active problems Encounters Date Type Department Care Team Description 11/16/2024 12:48 PM [employer] WORKER - 11/16/2024 11:59 PM [employer]IAL WORKER Hospital Encounter [facility] Emergency, Room R Discharge Disposition: Discharge to home or self care 11/15/2024 5:24 PM F[employer] SOCIAL WORKER - 11/16/2024 3:38 AM F[employer] SOCIAL WORKER Emergency [facility] Emergency Department [address] [place] [address] Khris Villalobos MD Ong, Michelle, MD Paranoikey (HCC) (Primary Dx) Discharge Disposition: Discharge to psych hospital or psych unit 11/14/2024 9:41 AM F[employer] SOCIAL WORKER - 11/14/2024 11:59 PM F[employer] SOCIAL WORKER Hospital Encounter [facility] AMBULANCE BILLING Emergency, Room R Discharge Disposition: Discharge to home or self care 11/13/2024 6:13 PM F[employer] SOCIAL WORKER - 11/14/2024 6:41 AM F[employer]ER C[employer] SOCIAL WORKER Emergency [facility] Emergency Department [address] [place] [address] Norman Garvey MD Wala, Ronyn Leblanc MD UTI (urinary tract infection) with pyuria (Primary Dx); Hypokalemia; Paranoia (HCC) Discharge Disposition: Discharge to home or self care 11/13/2024 5:58 PM F[employer] SOCIAL WORKER - 11/13/2024 11:59 PM F[employer] SOCIAL WORKER Hospital Encounter [facility] AMBULANCE BILLING Emergency, Room R Discharge Disposition: Discharge to home or self care from Last 3 Months Immunizations Immunization Administration Dates Next Due Influenza, Quadrivalent, Spl it, Preservative Free, Intramuscular 10/29/2016 MMR 09/10/2021(Deferred: No longer n eeded) Tdap 09/10/2021(Deferred: Other - pt received tdap on 08/06 at office) Medical History Medical History Date Comments Asthma Family History Medical History Relation Name Comments Diabetes Father Diabetes Mother Relation Name Status Comments Father Mother Social History Tobacco Use Types Packs/Day Years [...] on file Legal Sex Female 2:26 PM F[employer]ER C[employer] SOCIAL WORKER Gender Identity Not on file Sexual Orientation Not on file Obstetrics History Para Term AB IAB SAB Ectopic Multiple Livin g Live Births 2 2 1 1 0 2 2 Date Outcome GA Total Labor Labor/2nd/3rd Weight Sex Type Anes PTL Zoey A1 A5 Name Clin 2017 35w 5d 2.296 kg (5 lb 1 oz) M Vag-S pont Y Livin g Delivery Location:[facility] 2020 Term 38w 5d 7h 51m 6h 45m/0h 58m/0h 08m 3.123 kg (6 lb 14.2 oz) M Vag-S pont Epidur al N Livin g 9 9 SCHNE IDER, ALAN Levine, Zohra Loza eth, DO Complications:None Delivery Location:This [facility] ([facility]) Last Filed Vital Signs Vital Sign Reading Time Taken Comments Blood Pressure 141/99 11/15/2024 6:09 PM F[employer] WORKER Pulse 86 11/15/2024 6:09 PM F[employer]ER [employer] SOCIAL WORKER Temperature 36.8 C (98.2 F) 11/15/2024 2:56 PM F[employer] SOCIAL WORKER Respiratory Rate 19 11/15/2024 6:09 PM F[employer]ER [employer] SOCIAL WORKER Oxygen Saturation 98% 11/15/2024 6:09 PM F[employer]ER [employer] SOCIAL WORKER Inhaled Oxygen Concentration - - Weight 68 kg (150 lb) 11/15/2024 2:56 PM F[employer]ER [employer] SOCIAL WORKER Height 160 cm (5' 3 ) 11/15/2024 2:56 PM F[employer]ER [employer] SOCIAL WORKER Body Mass Index 26.57 11/15/2024 2:56 PM F[employer]ER [employer] SOCIAL WORKER Plan of Treatment Health Maintenance Due Date Last Done Comments Cervical Cancer Screening 1996 Depression Screening 1996 Hepatitis C Screening 1996 Varicella Vaccines (1 of 2 - 13+ 2-dose series) 2009 Regular Well Visit/Exam 18-64 2014 Pneumococcal vaccine <65 (1 of 2 - PCV) 2015 Influenza Vaccine (#1) 2024 7, 07/15/2012, 07/19/2009 DTaP/Tdap/Td Vaccine (9 - Td or Tdap) 08/06/2031 08/06/2021, 10/24/2016, 06/02/2007, Additional history exists Hepatitis B Screening Completed 01/14/1997 , 1996, 1996 HPV Vaccines Completed 08/18/2012, 05/06, 07/19/2009 Procedures Procedure Name Priority Date/Time Associated Diagnosis Comments ETHANOL Add-On 11/15/2024 10:24 PM F[employer] WORKER HCG, URINE, QUALITATIVE Timed 11/15/2024 5:34 PM F[employer]ER [employer] SOCIAL WORKER DRUGS OF ABUSE SCREEN, URINE WITHOUT CONFIRMATION STAT 11/15/2024 5:34 PM F[employer] SOCIAL WORKER URINALYSIS AND REFLEX TO MICROSCOPIC AND CULTURE STAT 11/15/2024 5:34 PM F[employer]ER C[employer] SOCIAL WORKER ECG 12-LEAD STAT 11/15/2024 4:48 PM F[employer] SOCIAL WORKER EGFR STAT 11/15/2024 3:01 PM F[employer]ER [employer] SOCIAL WORKER DIFFERENTIAL AUTO STAT 11/15/2024 3:0 1 PM F[employer]ER [employer] SOCIAL WORKER CBC WITH AUTO DIFFERENTIAL STAT 11/15/2024 3:01 PM F[employer] SOCIAL WORKER COMPREHENSIVE METABOLIC PANEL STAT 11/15/2024 3:01 PM F[employer]ER [employer] SOCIAL WORKER INFLUENZA A/B, RSV, AND COVID-19 PCR STAT 11/15/2024 3:01 PM F[employer] SOCIAL WORKER EGFR STAT 11/14/2024 2:29 AM F[employer]ER C[employer] SOCIAL WORKER BASIC METABOLIC PANEL STAT 11/14/2024 2:29 AM F[employer]ER C[employer] SOCIAL WORKER CT CHEST ABDOMEN PELVIS WO CONTRAST ED 11/14/2024 12:54 AM F[employer] SOCIAL WORKER POTASSIUM LEVEL STAT 11/13/2024 9:49 PM F[employer]ER C[employer]ER CT HEAD WO CONTRAST ED 11/13/2024 6 :58 PM F[employer]ER [employer] SOCIAL WORKER HCG, URINE, QUALITATIVE STAT 11/13/2024 6:37 PM F[employer] SOCIAL WORKER EGFR STAT 11/13/2024 6:37 PM F[employer]ER CARE SOCIAL WORKER MAGNESIUM Routine 11/13/2024 6:37 PM F[employer]ER [employer]ARE SOCIAL WORKER RENAL FUNCTION PANEL STAT 11/13/2024 6:37 PM F[employer]ER C[employer] SOCIAL WORKER EGFR STAT 11/13/2024 6:37 PM F[employer]ER [employer] SOCIAL WORKER URINALYSIS, MICROSCOPIC ONLY Routine 11/13/2024 6:37 PM F[employer]ER [employer]ARE SOCIAL WORKER DIFFERENTIAL AUTO STAT 11/13/2024 6:3 7 PM F[employer]ER CARE SOCIAL WORKER ERYTHROCYTE SEDIMENTATION RATE STAT 11/13/2024 6:37 PM F[employer]ER C[employer] SOCIAL WORKER DRUGS OF ABUSE SCREEN, URINE WITHOUT CONFIRMATION STAT 11/13/2024 6:37 PM F[employer]ER CARE SOCIAL WORKER THYROID FUNCTION CASCADE Add-On 11/13/2024 6:37 PM F[employer]ER [employer]ARE SOCIAL WORKER COMPREHENSIVE METABOLIC PANEL STAT 11/13/2024 6:37 PM F[employer]ER [employer] SOCIAL WORKER CBC WITH AUTO DIFFERENTIAL STAT 11/13/2024 6:37 PM F[employer]ER [employer] SOCIAL WORKER URINE CULTURE Routine 11/13/2024 6:37 PM F[employer] SOCIAL WORKER URINALYSIS AND REFLEX TO MICROSCOPIC AND CULTURE Routine 11/13/2024 6:37 PM F[employer]ER [employer]ARE SOCIAL WORKER from Last 3 Months Results * Ethanol (11/15/2024 10:24 PM F[employer]ER CARE SOCIAL WORKER) Ethanol <10 <=10 mg/dL Comment: Interpretive Data Legal limit of intoxication > or = 80 mg/dL Levels > or = 400 mg/dL are potentially TOXIC. Current interpretive data was last revised on 2018. Blood 11/15/2024 10:2 4 PM F[employer]ER CARE SOCIAL WORKER 11/15/2024 10:26 PM F[employer]ER C[employer] SOCIAL WORKER us Debora Garcia DO LAB BLOOD ORDERABLES Final Result [facility] ([place]) 1 [facility] Department [place] [address] * Urinalysis reflex to microscopic and culture Urine (11/15/2024 5:34 PM FOSTER CARE SOCIAL WORKER) Color, ur Straw Yellow Clarity, ur Clear [...] tendency for uric acid stone formation. Source: [facility] Current Interpretive Data was last revised on [...] for microscopic UA and culture not met. [facility] ([place]) Urine 11/15/2024 5:34 PM F[employer]ER CARE SOCIAL WORKER 11/15/2024 5:39 PM F[employer] SOCIAL WORKER us Khris Villalobos MD LAB MICROBIOLOGY - GENERAL ORD ERABLES Final Result [facility] ([place]) 1 [facility] Department [place] [address] * (ABNORMAL) Drugs of Abuse Screen, Urine without Confirmation (11/15/2024 5:34 PM FOSTER CARE SOCIAL WORKER) [facility] Amphetamine, ur Not Detected CutOff 500ng/mL Comment: [...] 2023. Methadone, ur Not Detected CutOff 300ng/mL [facility] ([place]) Comment: Interpretive Data - Methadone: Samples containing greater than 300 ng/mL d,l-methadone or other cross-reacting compounds are reported as positive. False positive and false negative results are possible. Confirmatory testing required for definitive results. Current Interpretive Data was last reviewed 2023. Opiates, ur Not Detected CutOff 300ng/mL [facility] ([place]) Comment: Interpretive Data - Opiates: Samples containing greater than 300 ng/mL morphine or other cross-reacting compounds are reported as positive. False positive and false negative results are possible. Confirmatory testing required for definitive results. Current Interpretive Data was last reviewed 2023. Oxycodone, ur Not Detected CutOff 100ng/mL [facility] ([place]) Comment: Interpretive Data - Oxycodone: Samples containing greater than 100 ng/mL oxycodone or other cross-reacting compounds are reported as positive. False positive and false negative results are possible. Confirmatory testing required for definitive results. Current Interpretive Data was last reviewed 2023. Phencyclidine, ur Not Detected CutOff 25 ng/mL [facility] ([place]) Comment: Interpretive Data - Phencyclidine: Samples containing greater than 25 ng/mL phencyclidine or other cross-reacting compounds are reported as positive. False positive and false negative results are possible. Confirmatory testing required for definitive results. Current Interpretive Data was last reviewed 2023. Urine Creatinine 40 mg/dL [facility] ([place]) Comment: Interpretive Data Urine Creatinine: < 10 mg/dL is extremely dilute = or > 10 but < 20 mg/dL is dilute = or > 20 mg/dL is normal Current Interpretive Data was last revised on 2017. Urine 11/15/2024 5:34 PM F[employer]ER CARE SOCIAL WORKER 11/15/2024 5:39 PM F[employer]ER CARE SOCIAL WORKER Narrative [facility] ([place]) - 11/15/2024 6:07 PM F[employer]ER CARE SOCIAL WORKER Drug of Abuse screening is performed by immunoassay for medical purposes only. This is not to be used for Pain Management purposes. Khris Villalobos MD LAB URINE ORDERABLES Final Res ult Performing Organization Address City/[facility] Co de Phone Number [facility] ([place]) [address] [place] [address] * hCG, urine, qualitative (11/15/2024 5:34 PM F[employer]ER CARE SOCIAL WORKER) HCG, ur Negative Negative Urine 11/15/2024 5:34 PM F[employer]ER CARE SOCIAL WORKER 11/15/2024 7:04 PM F[employer]ER CARE SOCIAL WORKER Debora Garcia DO LAB URINE ORDERABLES Final Result Performing Organization Address [facility] de Phone Number [facility] [address] [place] [id number] * ECG 12 lead (11/15/2024 4:48 PM FOSTER CARE SOCIAL WORKER) 11/15/2024 4:48 PM F[employer]ER CARE SOCIAL WORKER Narrative [facility] - 11/16/2024 6:38 AM FOSTER CARE SOCIAL WORKER Vent Rate: 80 bpm RR Interval: 747 msec WV Interval: 187 msec QRS Duration: 82 msec QT Interval: 355 msec QTC Interval: 391 msec P-R-T [place]: 70 - 29 - 57 degrees IMPRESSION: SINUS RHYTHM NORMAL ECG Electronically Signed By: Nathaniel Carranza MD Khris Villalobos MD ECG ORDERABLES Final Result Performing Organization Address [facility] Co de Phone Number [facility] [employer] [facility] * Influenza A/B, RSV, and COVID-19 PCR Nasopharyngeal (11/15/2024 3:01 PM F[employer]ER CARE SOCIAL WORKER) COVID-19 RNA Negative Negative Influenza A RNA Negative Negative [facility] Influenza B RNA Negative Negative [facility] ([place]) RSV RNA Negative Negative [facility] ([place]) Comment: Interpretive data: Testing performed by [facility]. This test is performed using the bSafe Xpert Xpress CoV-2/Flu/RSV plus assay. This is a multiplex, real- time reverse transcriptase PCR assay intended for the qualitative detection of nucleic acid from SARS-CoV-2, influenza A, influenza B, and respiratory syncytial virus. This assay has been cleared by the [place] Food and Drug administration. The performance characteristics have been verified by the [facility]. Results must be considered in the clinical context, and a negative result does not rule out infection. Interpretive Data last revised 2023 Nasopharyngeal 11/15/2024 3: 01 PM F[employer]ER CARE SOCIAL WORKER 11/15/2024 3:03 PM F[employer]ER CARE SOCIAL WORKER Narrative [facility] ([place]) - 11/15/2024 3:42 PM FOSTER CARE SOCIAL WORKER Is the Patient experiencing symptoms consistent with COVID?->Yes us Khris Villalobos MD LAB MICROBIOLOGY - GENERAL ORD ERABLES Final Result [facility] ([place]) 1 [facility] Department [place] [address] * eGFR (11/15/2024 3:01 PM F[employer]ER CARE SOCIAL WORKER) eGFR >90 >=60 mL/min/1. 73 m2 Comment: [...] last reviewed 2021. Blood 11/15/2024 3:01 PM F[employer]ER CARE SOCIAL WORKER 11/15/2024 3:03 PM F[employer]ER CARE SOCIAL WORKER us Khris Villalobos MD LAB BLOOD ORDERABLES Final Res ult [facility] ([place]) 1 [facility] Department [place] [address] * Differential, auto (11/15/2024 3:01 PM F[employer]ER C[employer] SOCIAL WORKER) Neutrophil abs 5.5 1.5 - 6.5 K/cumm Imm gran abs 0.0 0.0 - 0.1 K/cumm [facility] ([place]) Lymphocyte abs 1.9 0.8 - 3.3 K/cumm [facility] ([place]) Monocyte abs 0.7 0.2 - 0.8 K/cumm [facility] ([place]) Eosinophil abs 0.1 0.0 - 0.5 K/cumm [facility] ([place]) Basophil abs 0.1 0.0 - 0.1 K/cumm [facility] ([place]) Neutrophil pct 66.8 % [facility] ([place]) Comment: Interpretive Data Percent cell count reference ranges are not reported, since discordance with absolute values may lead to misinterpretation of CBC data. Current Interpretive Data was last revised on 2018. Imm gran pct 0.5 % [facility] ([place]) Comment: Interpretive Data Percent cell count reference ranges are not reported, since discordance with absolute values may lead to misinterpretation of CBC data. Current Interpretive Data was last revised on 2018. Lymphocyte pct 22.8 % [facility] ([place]) Comment: Interpretive Data Percent cell count reference ranges are not reported, since discordance with absolute values may lead to misinterpretation of CBC data. Current Interpretive Data was last revised on 2018. Monocyte pct 8.1 % [facility] ([place]) Comment: Interpretive Data Percent cell count reference [...] revised on 2018. Blood 11/15/2024 3:01 PM F[employer]ER CARE SOCIAL WORKER 11/15/2024 3:03 PM F[employer]ER CARE SOCIAL WORKER us Khris Villalobos MD LAB BLOOD ORDERABLES Final Res ult [facility] ([place]) 1 [facility] [place] [address] * (ABNORMAL) CBC with auto differential (11/15/2024 3:01 PM F[employer]ER CARE SOCIAL WORKER) WBC 8.2 3.8 - 9.9 K/cumm Hgb [...] [facility] ([place]) Blood 11/15/2024 3:01 PM F[employer]ER CARE SOCIAL WORKER 11/15/2024 3:03 PM F[employer]ER CARE SOCIAL WORKER Khris Villalobos MD LAB BLOOD ORDERABLES Final Res ult [facility] ([place]) 1 [facility] Department [place] [address] * (ABNORMAL) Comprehensive metabolic panel (11/15/2024 3:01 PM F[employer]ER CARE SOCIAL WORKER) Sodium 136 135 - 145 mmol/L Potassium, [...] [facility] ([place]) Blood 11/15/2024 3:01 PM F[employer]ER CARE SOCIAL WORKER 11/15/2024 3:03 PM F[employer]ER CARE SOCIAL WORKER us Khris Villalobos MD LAB BLOOD ORDERABLES Final Res ult Performing Organization Address City/[facility]/ZIP Co de Phone Number [facility] ([place]) 1 [facility] [place] [address] * eGFR (11/14/2024 2:29 AM F[employer]ER CARE SOCIAL WORKER) eGFR >90 >=60 mL/min/1. 73 m2 Comment: [...] last reviewed 2021. Blood 11/14/2024 2:29 AM F[employer]ER CARE SOCIAL WORKER 11/14/2024 2:32 AM F[employer]ER CARE SOCIAL WORKER us Ronny Robledo MD LAB BLOOD ORDERABLES Final Re sult [facility] ([place]) 1 [facility] [place] [address] * Basic metabolic panel (11/14/2024 2:29 AM FOSTER CARE SOCIAL WORKER) Sodium 141 135 - 145 mmol/L Potassium, pl 3.3 3.3 - 4.9 mmol/L [facility] ([place]) Chloride 99 97 - 110 mmol/L [facility] ([place]) CO2 30 22 - 32 mmol/L [facility] ([place]) Anion gap 11 2 - 15 mmol/L [facility] ([place]) BUN 9 6 - 25 mg/dL [facility] ([place]) Creatinine 0.74 0.60 - 1.10 mg/dL [facility] ([place]) Glucose 120 70 - 199 mg/dL [facility] ([place]) Comment: Interpretive Data Fasting glucose >/= [...] 2022. Calcium 9.3 8.5 - 10.3 mg/dL [facility] ([place]) Blood 11/14/2024 2:29 AM F[employer]ER CARE SOCIAL WORKER 11/14/2024 2:32 AM F[employer]ER CARE SOCIAL WORKER us Ronny Robledo MD LAB BLOOD ORDERABLES Final Re sult [facility] ([place]) 1 [facility] Department [place] [address] * CT Chest Abdomen Pelvis WO Contrast (11/14/2024 12:54 AM F[employer]ER CARE SOCIAL WORKER) Anatomical Region Laterality Modality Body N/A Computed Tomogra phy 11/14/2024 1:00 AM F[employer]ER CARE SOCIAL WORKER Narrative 11/14/2024 1:13 AM F[employer]ER CARE SOCIAL WORKER EXAM DESCRIPTION: CT CHEST ABDOMEN PELVIS WO [...] Electronically signed by Barbara Burkett M.D. SN: Report ID: [id number] Reading Location: [id number] Procedure Note Barbara Burkett MD - 11/14/2024 [...] Barbara Burkett M.D. SN: SN Report ID: [id number] Reading Location: [place] [address] Norman Garvey MD IMG CT PROCEDURES Final Res ult * (ABNORMAL) Potassium (11/13/2024 9:49 PM FOSTER CARE SOCIAL WORKER) [facility] Signature Potassium, pl 2.4(C) 3.3 - 4.9 mmol/L Comment:Critical Result call ed by [email or web address] at 2024-11-13 22:56:05. Result Read Back by Sarah Brito ED Blood 11/13/2024 9:49 PM F[employer]ER CARE SOCIAL WORKER 11/13/2024 9:51 PM F[employer]ER CARE SOCIAL WORKER Norman Garvey MD LAB BLOOD ORDERABLES Final Result [facility] [place] 1 [facility] Department [place] [address] * CT Head WO Contrast (11/13/2024 6:58 PM FOSTER CARE SOCIAL WORKER) Anatomical Region Laterality Modality Head and Neck N/A Computed Tomogra phy 11/13/2024 8:03 PM F[employer]ER CARE SOCIAL WORKER Narrative 11/13/2024 8:14 PM F[employer]ER CARE SOCIAL WORKER EXAM DESCRIPTION: CT HEAD WO CONTRAST REASON [...] Jeyson Kauffman M.D. KT: DOUG Report ID: [id number] Reading Location: [id number] Procedure Note Jeyson Kauffman MD - 11/13/2024 [...] Jeyson Kauffman M.D. KT: DOUG Report ID: [id number] Reading Location: [id number] Norman Garvey MD IMG CT PROCEDURES Final Res ult * eGFR (11/13/2024 6:37 PM F[employer]ER CARE SOCIAL WORKER) eGFR >90 >=60 mL/min/1. 73 m2 Comment: [...] last reviewed 2021. Blood 11/13/2024 6:37 PM F[employer]ER CARE SOCIAL WORKER 11/13/2024 9:40 PM F[employer]ER CARE SOCIAL WORKER us Norman Garvey MD LAB BLOOD ORDERABLES Final Result [facility] [place]) 9 [facility] Department [place] [address] * eGFR (11/13/2024 6:37 PM FOSTER CARE SOCIAL WORKER) eGFR >90 >=60 mL/min/1. 73 m2 Comment: [...] last reviewed 2021. Blood 11/13/2024 6:37 PM FOSTER CARE SOCIAL WORKER 11/13/2024 7:06 PM F[employer]ER CARE SOCIAL WORKER Norman Garvey MD LAB BLOOD ORDERABLES Final Result [facility] ([place]) 1 [facility] Department [place] [address] * (ABNORMAL) Differential, auto (11/13/2024 6:37 PM FOSTER CARE SOCIAL WORKER) Neutrophil abs 11.0(H) 1.5 - 6.5 K/cumm [...] revised on 2018. Blood 11/13/2024 6:37 PM FOSTER CARE SOCIAL WORKER 11/13/2024 7:06 PM F[employer]ER CARE SOCIAL WORKER Norman Garvey MD LAB BLOOD ORDERABLES Final Result Performing Organization Address [facility] Co de Phone Number [facility] ([place]) 1 [facility] [place] [address] * Thyroid Function [place] (11/13/2024 6:37 PM FOSTER CARE SOCIAL WORKER) Pathologist [facility] TSH 0.53 0.30 - 4.20 mcIUnit/mL Blood 11/13/2024 6:37 PM FOSTER CARE SOCIAL WORKER 11/13/2024 7:06 PM F[employer]ER CARE SOCIAL WORKER Norman Garvey MD LAB BLOOD ORDERABLES Final Result Performing Organization Address [facility] Co de Phone Number [facility] 1 [facility] [place] [address] * (ABNORMAL) Urinalysis reflex to microscopic and culture Urine, clean voided (11/13/2024 6:37 PM FOSTER CARE SOCIAL WORKER) Color, ur Yellow Yellow Clarity, ur Turbid(A) Clear [facility] ([place]) Specific gravity, ur 1.007 1.003 - 1.030 [...] tendency for uric acid stone formation. Source: [facility] [employer] Current Interpretive Data was last revised on [...] ([place]) Urine, clean voided 11/13/2024 6:37 PM FOSTER CARE SOCIAL WORKER 11/13/2024 7:05 PM FOSTER CARE SOCIAL WORKER us Norman Garvey MD LAB MICROBIOLOGY - GENERAL ORDERABLES Final Result [facility] ([place]) 1 [facility] Department [place] [address] * (ABNORMAL) CBC with auto differential (11/13/2024 6:37 PM FOSTER CARE SOCIAL WORKER) WBC 13.7(H) 3.8 - 9.9 K/cumm Hgb 14.5 11.9 - 15.5 g/dL [facility] ([place]) Hct 42.5 35.6 - 45.5 % [facility] ([place]) Plt 426(H) 150 - 400 K/cumm [facility] ([place]) MPV 8.8(L) 9.1 - 12.3 fL [facility] ([place]) RBC 4.65 3.90 - 5.20 M/cumm [facility] ([place]) MCV 91.4 81.3 - 96.4 fL [facility] ([place]) MCH 31.2 27.1 - 33.3 pg [facility] ([place]) MCHC 34.1 32.3 - 35.7 g/dL [facility] ([place]) RDW CV 11.9 11.1 - 14.9 % [facility] ([place]) RDW SD 39.9 35.7 - 48.1 fL [facility] ([place]) NRBC abs 0.00 0.00 - 0.01 K/cumm [facility] ([place]) Blood 11/13/2024 6:37 PM FOSTER CARE SOCIAL WORKER 11/13/2024 7:06 PM F[employer]ER CARE SOCIAL WORKER Norman Garvey MD LAB BLOOD ORDERABLES Final Result [facility] ([place]) 1 [facility] Department [place] [address] * (ABNORMAL) Drugs of Abuse Screen, Urine without Confirmation (11/13/2024 6:37 PM FOSTER CARE SOCIAL WORKER) Amphetamine, ur Not Detected CutOff 500ng/mL Comment: Interpretive Data - Amphetamines: Samples containing greater than 500 ng/mL d-methamphetamine or other cross-reacting amphetamine compounds are reported as positive. Amphetamine immunoassays are subject to significant false positive rates due to cross-reactivity of non-amphetamine drugs. Confirmatory testing required for definitive results. Current Interpretive Data was last reviewed 2023. Barbiturates, ur Not Detected CutOff 200ng/mL [facility] ([place]) Comment: Interpretive Data - Barbiturates: Samples containing greater than 200 ng/mL secobarbital or other cross-reacting barbiturate compounds are reported as positive. False positive and false negative results are possible. Confirmatory testing required for definitive results. Current Interpretive Data was last reviewed 2023. Benzodiazepines, ur Not Detected CutOff 100ng/mL [facility] ([place]) Comment: Interpretive Data - Benzodiazepines: Samples containing [...] ur Not Detected CutOff 25 ng/mL [facility] ([place]) Comment: Interpretive Data - Phencyclidine: Samples containing greater than 25 ng/mL phencyclidine or other cross-reacting compounds are reported as positive. False positive and false negative results are possible. Confirmatory testing required for definitive results. Current Interpretive Data was last reviewed 2023. Urine Creatinine 93 mg/dL SABA MCFADDEN [facility] ([place]) Comment: Interpretive Data Urine Creatinine: < 10 mg/dL is extremely dilute = or > 10 but < 20 mg/dL is dilute = or > 20 mg/dL is normal Current Interpretive Data was last revised on 2017. Urine 11/13/2024 6:37 PM [employer]ER [employer] SOCIAL WORKER 11/13/2024 7:56 PM [employer] SOCIAL WORKER N[facility]ative [facility] ([place]) - 11/13/2024 8:10 PM [employer] SOCIAL WORKER Drug of Abuse screening is performed by immunoassay for medical purposes only. This is not to be used for Pain Management purposes. Norman Garvey MD LAB URINE ORDERABLES Final Result Performing Organization Address [facility] Co de Phone Number [facility] ([place]) [address] [facility] [place] [address] * hCG, urine, qualitative (11/13/2024 6:37 PM F[employer]ER [employer] SOCIAL WORKER) HCG, ur Negative Negative Urine 11/13/2024 6:37 PM F[employer] SOCIAL WORKER 11/14/2024 12:12 AM F[employer]IAL WORKER Ronny Robledo MD LAB URINE ORDERABLES Final Re sult Performing Organization Address [facility]/ZIP Co de Phone Number [facility] ([place]) [address] [facility] [place] [address] * (ABNORMAL) Urinalysis, microscopic only (11/13/2024 6:37 PM F[employer] SOCIAL WORKER) WBC, ur 21-50(A) 0 - 5 /HPF RBC, ur 6-10(A) 0 - 2 /HPF [facility] ([place]) Epithelial cells, squamous, ur 21-50(A) 0 - 5 /HPF [facility] ([place]) Bacteria, ur Trace(A) [facility] ([place]) Mucous, ur Present(A) [facility] ([place]) Culture Reflex Comment Reflex to urine culture will be performed. [facility] ([place]) Urine, clean voided 11/13/2024 6:37 PM F[employer] SOCIAL WORKER 11/13/2024 7:05 PM [employer]IAL WORKER Norman Garvey MD LAB URINE ORDERABLES Final Result Performing Organization Address City/[facility]/ZIP Co de Phone Number [facility] ([place]) [address] [facility] [place] [address] * (ABNORMAL) Erythrocyte sedimentation rate (11/13/2024 6:37 PM F[employer]IAL WORKER) Erythrocyte sedimentation rate 23(H) 1 - 20 mm/hr Blood 11/13/2024 6:37 PM F[employer]ER [employer] SOCIAL WORKER 11/13/2024 7:06 PM [employer]IAL WORKER Norman Garvey MD LAB BLOOD ORDERABLES Final Result Performing Organization Address City/[facility] Co de Phone Number [facility] ([place]) 1 [facility] [place] [address] * Urine culture Urine, clean voided (11/13/2024 6:37 PM F[employer]ER [employer] SOCIAL WORKER) Report Final Report: Growth indicative of contamination with periurethral lian. Please submit a new specimen with special attention given to the collection process and to prompt transport to the laboratory. Comment:Testing performed by : [facility], [address] [facility], [place]., [address] Organism GROWTH INDICATES CONTAM WITH PERIURETHRAL LIAN. [facility] ([place]) Urine, clean voided 11/13/2024 6:37 PM F[employer]ER [employer] SOCIAL WORKER 11/13/2024 10:29 PM F[employer]ER [employer] SOCIAL WORKER Narrative [facility] ([place]) - 11/15/2024 4:37 PM F[employer] SOCIAL WORKER Urine culture reflexed based upon urinalysis results. Testing performed by [facility] ([phone]) Norman Garvey MD LAB MICROBIOLOGY - GENERAL ORDERABLES Final Result [facility] ([place]) 1 [facility] [place] [address] * Magnesium (11/13/2024 6:37 PM F[employer]ER [employer] SOCIAL WORKER) Pathologist [facility] Magnesium 2.0 1.4 - 2.5 mg/dL Blood 11/13/2024 6:37 PM F[employer]ER [employer] SOCIAL WORKER 11/13/2024 9:40 PM F[employer] SOCIAL WORKER Norman Garvey MD LAB BLOOD ORDERABLES Final Result Performing Organization Address [facility] Co de Phone Number [facility] ([place]) 1 [facility] [place] [address] * (ABNORMAL) Renal function panel (11/13/2024 6:37 PM F[employer]ER [employer] SOCIAL WORKER) Pathologist [facility] Sodium 139 135 - 145 mmol/L Potassium, pl 2.4(C) 3.3 - 4.9 mmol/L [facility] ([place]) Comment:Critical Result call ed by [id number] at 2024-11-13 21:54:47. Result Read Back by [...] [facility] ([place]) Blood 11/13/2024 6:37 PM F[employer] SOCIAL WORKER 11/13/2024 9:40 PM F[employer]ER [employer] SOCIAL WORKER Narrative [facility] ([place]) - 11/13/2024 9:54 PM F[employer] SOCIAL WORKER Confirm potassium us Norman Garvey MD LAB BLOOD ORDERABLES Final Result [facility] ([place]) 1 [facility] [place] [address] * (ABNORMAL) Comprehensive metabolic panel (11/13/2024 6:37 PM F[employer]ER [employer] SOCIAL WORKER) Sodium 137 135 - 145 mmol/L Potassium, pl 2.1(C) 3.3 - 4.9 mmol/L [facility] ([place]) Comment:Critical Result call ed by [email or web address] at 2024-11-13 19:47:30. Result Read Back by [...] [facility] ([place]) Blood 11/13/2024 6:37 PM F[employer]ER C[employer] SOCIAL WORKER 11/13/2024 7:06 PM F[employer] SOCIAL WORKER Norman Garvey MD LAB BLOOD ORDERABLES Final Result [facility] ([place]) 1 [facility] [place] [address] from Last 3 Months Insurance [facility] ACCESS CHOICE [facility] [employer] CHOICE [facility] Advance Directives For more information, please contact: [phone] * Full Code (Latest Code Status on File) Date Activated Date Inactivated Comments 09/08/2021 6:10 PM 09/10/2021 7:41 PM * Full Code Date Activated Date Inactivated Comments 09/08/2021 2:59 AM 09/08/2021 6:10 PM Full CPR in case of cardiopulmonary arrest Care Teams [employer]er Relationship Specialty Start Date End Date No, Physician PCP - General 02/19/17
--- OUTSIDE RECORDS SUMMARY | 2024-11-29 14:14 | XMS_ITS | Encounter Summary ---
Author Organization [facility] Healthcare Address [address] [place] [address] Care Team Providers Care Patient Relations Liaison Name Role Phone No, Physician Primary Care Provider [phone] Encounter Details Date Type Department Care Team (Latest Contact Info) Description 10/17/2019 Ophth Exam Ophthalmology Teo Garduno MD [address] [id number] Social History Tobacco Use Types Packs/Day Years Used Date Smoking Tobacco: Every Day Cigarettes 0.3 4 Smokeless Tobacco: Never Alcohol Use Standard Drinks/Week Comments Yes 0 (1 standard drink = 0.6 oz pur e alcohol) 8-12 drinks per week. 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 Gender Identity Not on file Sexual Orientation Not on file documented as of this encounter Plan of Treatment Not on file documented as of this encounter Visit Diagnoses Not on filedocumented in this encounter Additional Health Concerns Infection Onset Date Last Indicated Resolved Time COVID: Suspected 11/15/2024 11/15/2024 11/15/2024 3:44 PM STAFF DEVELOPMENT NURSE documented as of this encounter Eye Exam Visual Acuity Right eye Left eye Near sc 20/20 20/20 Tonometry (Palpation, 5:30 AM) Right eye Left eye Pressure STP STP Visual Garcia Right eye Left eye Full Full Extraocular Movement Right eye Left eye Full Full Dilation Both eyes: 1% Tropicamide, 2 .5% Phenylephrine @ 5:30 AM External Exam Right eye Left eye External Normal Normal Slit Lamp Exam Right eye Left eye Lids/Lashes Normal, watery discharge Normal, watery discharge Conjunctiva/Sclera Diffuse injection, m ixed papilalry, follicular reaction Diffuse injection, mixed papilalry, follicular reaction Cornea Clear Clear Anterior Chamber Deep and quiet Deep and quiet Iris Round and reactive Round and christy ctive Lens Clear Clear Vitreous Normal Normal Fundus Exam Right eye Left eye Disc Normal Normal C/D Ratio 0.3 0.3 Macula Normal Normal Vessels Normal Normal Periphery Normal Normal Care Teams Patient Relations Liaison Relationship Specialty Start Date End Date No, Physician PCP - General 02/19/17 documented as of this encounter
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
--- OUTSIDE RECORDS SUMMARY | 2024-11-29 14:14 | XMS_ITS | Clinical Summary ---
Author Organization [facility] Address [address] [place] [address] Care Team Providers Care Creel Hand Name Role Phone Unavailable Primary Care Provider Unavailabl e Source Comments [facility],non-owned Affiliates and Associated Physician Practices is amultiple site organization consisting of ambulatory clinics and hospital sitesin [place], [place], [place] and [place]. This disclosure is being madepursuant to the Care Everywhere program and may not contain all information available regarding this patient. Last updated 18.[facility] Allergies No known active allergies Medications * Be aware that medications may not be up to date on this document. Alwaysverify current medications with the patient. Medication Sig Dispensed Refills Start Date End Date Status Vit-Fe Fumarate-FA ( VITAMIN) 28-0.8 MG tabletIndication s: Take 1 tablet by mouth once daily Reasons: Active valACYclovir (VALTREX) 500 MG tablet 08/21/2021 Active Blood Glucose Monitoring Suppl (ONETOUCH VERIO FLEX SYSTEM) w/Device KIT Use 1 kit as directed 1 kit 08/22/2021 Active OneTouch Delica Lancets 30G MISC Use 1 Each 4 times daily 100 Each 1 08/22/2021 Active famotidine (PEPCID) 20 MG tabletIndication s:Gastroesophage al Reflux Disease Take 1 (one) tablet by mouth 2 times daily Reasons: Gastroesophageal Reflux Disease 30 tablet 5 08/22/2021 Active blood glucose test strip Use 1 (one) strip 4 times daily 100 strip 1 09/05/2021 Active OneTouch Delica Lancets 33G MISC Use 1 Each 4 times daily 100 Each 1 09/05/2021 Active Active Problems Problem Noted Date Diagnosed Date 38 weeks gestation of 09/05/2021 Supervision of high-risk of paris limon 08/08/2021 34 weeks gestation of 08/08/2021 Gestational diabetes mellitus (GDM) in third tri mester 07/11/2021 Overview (07/11/2021): GCT:179 GTT: 79, 189, 157, 61 Assessment & Plan (08/08/2021 3:25 PM CDT): Diet controlled. Glucose values nearly at goal, a few elevations without a pattern both fasting and post prandial, 4 total. Following diet mostly well. AGA growth today. Normotensive. Recommendations: 4 times daily blood sugars and glucose logs. Encouraged to email weekly as we did not receive last week. Encouraged continued efforts with her carbohydrate counting, if noticing pattern of elevations, reach out to us sooner than scheduled visit or weekly email. Discouraged dieting or restriction of eating today with minimal weight gain noted for patient. Twice weekly nonstress tests starting at 36 weeks, unless medications are indicated. Reviewed this again today and desires to complete one in our office and one at [facility] on Saturdays--nursing to communicate with referring OB. Encouraged twice daily kick counts, seek obstetrical evaluation with decreased movement Preeclampsia warnings reviewed in detail and when to seek evaluation Serial growth every 4 weeks with last assessment at 38 weeks for mode of delivery Delivery initiation between 39-40 weeks Diabetes testing 4-5 weeks after delivery with review at 6 week visit Assessment & Plan (07/25/2021 3:06 PM CDT): Diet controlled. Glucose values nearly at goal, a few elevations without a pattern. Following diet mostly well. AGA growth on 07/11. Normotensive. Recommendations: 4 times daily blood sugars and glucose logs. Encouraged to email weekly as we did not receive last week. Encouraged continued efforts with her carbohydrate counting, if noticing pattern of elevations, reach out to us sooner than scheduled visit or weekly email. Twice weekly nonstress tests starting at 36 weeks, unless medications are indicated. Reviewed this again today. Encouraged twice daily kick counts, seek obstetrical evaluation with decreased movement Preeclampsia warnings reviewed in detail and when to seek evaluation Serial growth every 4 weeks with last assessment at 38 weeks for mode of delivery Delivery initiation between 39-40 weeks Diabetes testing 4-5 weeks after delivery with review at 6 week visit Assessment & Plan (07/11/2021 2:05 PM CDT): GDMA1 I counseled Debora Ramirez regarding the adverse outcomes associated with inadequately controlled diabetes in . These complications include overgrowth with the associated risk of labor and shoulder dystocia, delivery, preeclampsia, hypoglycemia, stillbirth, and her child's risk of metabolic disease in later life secondary to programming of adult disease. Adequate management of the disease will minimize these risks. We discussed the dramatic increase in insulin resistance that occurs in the second half of and I outlined a plan for ongoing management. We reviewed the target glucose ranges to minimize excessive growth and optimize outcomes. These are: Fasting 60-90 mg/dl; preprandial 60-105 mg/dl; and 1-hour postprandial < 130 mg/dl. Currently glycemic control appears to be managed with diet and exercise. A) Antepartum testing. Recommend daily kick counts--explained. Twice weekly NST from 36 weeks until delivery, unless medications are needed then we recommend 34 weeks. Serial Ultrasound assessment of growth every 3-4 weeks is recommended, with a reassessment between 37-38 weeks for mode of delivery planning. B.) Timing of Delivery. If spontaneous delivery has not occurred by 39 weeks gestation, delivery may be planned 40 completed weeks. If complications, such as preeclampsia, macrosomia or poor glucose control develop, then delivery plans may need to be revised. C) Route of delivery. Vaginal delivery may be anticipated unless the fetus is excessively large or there is an abnormal presentation. Diabetes is associated with about a six-fold risk for shoulder dystocia. Operative vaginal deliveries should be approached with caution. We also discussed the limitations of ultrasound for estimating weight at term, with estimated weights deviating by up to 1 lb in either direction from birthweights. I advised Debora that the [employer] recommends delivery for fetuses with estimated weight of 4500 grams or greater in diabetic mothers. D) Glucose control in labor. During labor, capillary glucose values should be checked every 1-2 hours (depending on their stability). Maintenance fluids with 5% dextrose are infused to prevent starvation ketosis. If the glucose values exceed 110 mg/dl, an insulin infusion is recommended. E) Long-term diabetes surveillance. The risk of Debora Ramirez developing diabetes outside of over the next five years may be as high as 50%. I recommend that she have a fasting plasma glucose or 2hr GTT at 4 weeks and discussion of the results at her 6 week visit. If her testing is normal, annual glucose screening by her primary care physician is advised. 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 Tobacco use during 06/13/2021 Assessment & Plan (08/08/2021 3:18 PM CDT): Aware of relationship of PPROM. Has reduced to 2 day d/t SOB with exertion. Recommendations: Reviewed physiologic shortness of breath with and when to be concerned. Praised her efforts in reduction of tobacco. Assessment & Plan (06/13/2021 12:41 PM CDT): Discussed the relationship between smoking and PPROM Recommendations 1. 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 B weak D/ antibody-Neg/ Imm/ rpr-NR/ HIV-NR/ HBSag-Neg HH 12.5/36.6 Plt - 310 HSV 1 IgG = 10.7 HSV 2 IgG = 19.3 Assessment & Plan (08/08/2021 3:17 PM CDT): Reassuring CL at 26 weeks. Too late to care for prophylactic interventions. Occasional contraction without pattern. Having intermittent low back pain. Recommendations PTL warnings reviewed in detail. Encouraged utilization of support belt when working and assessment of any uterine activity with back pain. Advised to seek obstetrical evaluation with concerns for patterned contractions, leakage of fluid, vaginal bleeding, worsening back pain. Encouraged continued efforts in reduction of smoking Evaluation and treatment for any abnormal vaginal discharge concerns. Assessment & Plan (07/25/2021 2:50 PM CDT): Reassuring CL at 26 weeks. Too late to care for prophylactic interventions. Occasional contraction without pattern. Recommendations PTL warnings reviewed in detail Encouraged continued efforts in reduction of smoking Evaluation and treatment for any abnormal vaginal discharge concerns Assessment & Plan (07/11/2021 2:07 PM CDT): Reassuring CL at 26 weeks. Too late to care for prophylactic interventions Recommendations PTL warnings reviewed in detail Encouraged continued efforts in reduction of smoking Evaluation and treatment for any abnormal vaginal discharge concerns Assessment & Plan (06/13/2021 12:37 PM CDT): Too late for prophylactic interventions. Reassuring CL today. Recommendations 1. Encouraged smoking cessation 2. labor precautions 3. Evaluation and treatment of any abnormal vaginal discharge complaints Anxiety and depression Assessment & Plan (08/08/2021 3:19 PM CDT): Not fully addressed today. Again encouraged counselor as have previously suggested. Close follow up for mood exacerbation following delivery and consideration of immediate medication implementation. Assessment & Plan (07/25/2021 2:54 PM CDT): Does not have a counselor. Using marijuana for mood. Adamant that she does not want medications during her Acknowledges many stressors and active anxiety. Recommendations Referral for mental health counseling--initiated last visit. Reviewed online options such has [facility]-- handout provided previously. Goal for MJ cessation, counseled previously on risks. Close follow up for mood exacerbation. Consider starting medication immediately in the period given history of PP depression. Assessment & Plan (07/11/2021 2:12 PM CDT): Does not have a counselor. Using marijuana for mood. Does not want medications during her Recommendations Referral for mental health counseling--initiated last visit. Reviewed online options such has [facility]-- handout provided. Goal for MJ cessation, risks reviewed for Close follow up for mood exacerbation Assessment & Plan (06/13/2021 12:38 PM CDT): Does not have a counselor. Using marijuana for mood. Recommendations 1. referral for mental health counseling--initiated today 2. Goal for MJ cessation 3. 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 Rare cravings. No current chemical dependency treatment, completed program out of state. Previously reviewed naltrexone for after delivery if cravings increase Recommendations Encouraged identifying therapist, has been unable to do so with stressors. Praised her sobriety efforts Encouraged continued involvement in online support groups Assessment & Plan (07/11/2021 2:10 PM CDT): Reports remission for 6 mos from alcohol. Rare cravings. No current chemical dependency treatment, completed program out of state. Recommendations Encouraged identifying therapist Briefly reviewed naltrexone for after delivery if cravings increase Praised her sobriety efforts Encouraged continued involvement in online support groups Assessment & Plan (06/13/2021 12:39 PM CDT): Does not have a counselor. Recommendations 1. Referral for ongoing support for continued sobriety--should have a sponsor 1. referral initiated Resolved Problems Problem Noted Date Diagnosed Date Resolved Date Smoker 06/12/2021 06/12/2021 Immunizations Name Administration Dates Next Due HEP A VACCINE, ADULT 12/29/2018 Family History Medical History Relation Name Comments Diabetes - Gestational Mother Drug Abuse Mother Hypertension Sister Relation Name Status Comments Father Alive Mother mom from d rug overdose. Sister Other Gestational HTN Social History Tobacco Use Types Packs/Day Years [...] Comments Blood Pressure 113/66 09/07/2021 1:35 PM RUBBER COMPOUNDER Pulse 82 09/07/2021 1:35 PM RUBBER COMPOUNDER Temperature 36.8 C (98.2 F) 10/10/2019 12:58 PM RUBBER COMPOUNDER Respiratory Rate 18 10/10/2019 12:5 8 PM RUBBER COMPOUNDER Oxygen Saturation 99% 09/05/2021 1:50 PM RUBBER COMPOUNDER Inhaled Oxygen Concentration - - Weight 78.4 kg (172 lb 12.8 oz) 09/05/2021 1:50 PM RUBBER COMPOUNDER Height 160 cm (5' 3 ) 06/13/2021 11:21 AM CDT Body Mass Index 30.61 06/13/2021 11:21 AM CDT Plan of Treatment Health Maintenance Due Date Last Done Comments PAP SMEAR 1996 HIV SCREENING 2011 HEPATITIS C SCREENING 03/20/2014 DTAP/TDAP/TD VACCINES (1 - Tdap) 2015 HEPATITIS B VACCINE (1 of 3 - 19+ 3-dose series) 2015 PNEUMOCOCCAL VACCINE (1 of 2 - PCV) 2015 HEPATITIS A VACCINE (2 of 2 - Risk 2-dose series) 07/01/2019 12/29/2018 COVID-19 VACCINE (1 - 2023-2 5 season) 2024 INFLUENZA VACCINE (#1) 2024 10/29/2016 DEPRESSION SCREENING 10/06/2024 ZOSTER VACCINE (1 of 2) 2046 HIB VACCINE Aged Out No longer eligi ble based on patient's age to complete this topic HPV VACCINE Aged Out No longer eligi ble based on patient's age to complete this topic MENINGOCOCCAL (Group B) VACCINE Aged Out No longer eligible based on patient's age to complete this topic MENINGOCOCCAL VACCINE Aged Out No sara jayshree eligible based on patient's age to complete this topic
--- OUTSIDE RECORDS SUMMARY | 2024-11-29 14:14 | XMS_ITS | Referral Summary ---
Author Organization [facility] Address [address] [address] Care Team Providers Care Cardiac Rehabilitation Specialist Name Role Phone Unavailable Primary Care Provider Unavailabl e Source Comments [facility],non-owned Affiliates and Associated Physician Practices is amultiple site organization consisting of ambulatory clinics and hospital sitesin [place], [place], [place] and [place]. This disclosure is being madepursuant to the Care Everywhere program and may not contain all information available regarding this patient. Last updated 18.[facility] Allergies No known active allergies Medications * [...] one in our office and one at [facility] on Saturdays--nursing to communicate with referring [...] from birthweights. I advised Debora that the [employer] recommends delivery [...] labor with delivery at 35 wks @ [facility], nurse delivery per patient. B weak [...] Next Due HEP A VACCINE, ADULT 12/29/2018 Social History Tobacco Use Types Packs/Day Years [...] Comments Blood Pressure 113/66 09/07/2021 1:35 PM UM NURSE Pulse 82 09/07/2021 1:35 PM UM NURSE Temperature 36.8 C (98.2 F) 10/10/2019 12:58 PM UM NURSE Respiratory Rate 18 10/10/2019 12:5 8 PM UM NURSE Oxygen Saturation 99% 09/05/2021 1:50 PM UM NURSE Inhaled Oxygen Concentration - - Weight 78.4 kg (172 lb 12.8 oz) 09/05/2021 1:50 PM UM NURSE Height 160 cm (5' 3 ) 06/13/2021 11:21 AM CDT Body Mass Index 30.61 06/13/2021 11:21 AM CDT Plan of Treatment Not on file
== END 2024-11-29 12:37 | disposition home or self-care (01) ==
PROVIDERS: Visit Provider Nurse Practitioner Family
DX: R76.12 Nonspecific reaction to cell mediated immunity measurement of gamma interferon antigen response without active tuberculosis (principal)
CPT/HCPCS: 71046

== ENCOUNTER 2025-01-16 11:18 | Emergency (ER) | payer OTHER, SELFPAY ==
--- OUTSIDE RECORDS SUMMARY | 2025-01-16 11:20 | XMS_ITS | Patient Health Record ---
Author Organization [facility] hospital Address [address] [place] [address] Care Team Providers Care Insurance Risk Surveyor Name Role Phone Ruth Tobar Primary Care Provider Sanjay Vitale Unavailable [phone] HaseebmichaelTatiana vigil Unavailable [phone] DereckKelly moran Unavailable [phone] Allergies No Known Allergies Results Component Value Reference Range Notes Nuab Vaginitis Plus (VG+) (894892) Reviewed date:12/05/2024 06:47:59 PM Interpretation: Performing Lab:[facility], [address] [place] [address], Phone - [phone], Director - Munira Notes/Report: Test(s) 592125- Atopobium vaginae; 617957- BVAB 2; 126935- Megasphaera 1 was developed and its performance characteristics determined by [facility]. It has not been cleared or approved by the Food and Drug Administration. Test(s) 151724-Sgivkqr albicans, ARACELY; 530810-Ktxbpse glabrata, ARACELY was developed and its performance characteristics determined by [facility]. It has not been cleared or approved by the Food and Drug Administration. Atopobium vaginae Moderate - 1 BVAB 2 High - 2 Megasphaera 1 High - 2 Calculate total score by adding the 3 individual bacterial vaginosis (BV) marker scores together. Total score is interpreted as follows: Total score 0-1: Indicates the absence of BV. Total score 2: Indeterminate for BV. Additional clinical data should be evaluated to establish a diagnosis. Total score 3-6: Indicates the presence of BV. Estela albicans, ARACELY Negative Negative Estela glabrata, ARACELY Negative Negative Trich vag by ARACELY Negative Negative Chlamydia trachomatis, ARACELY Negative Negative Neisseria gonorrhoeae, ARACELY Negative Negative Pap IG Aptima HPV Age Gdln, +CtNgTv ([id number]) Reviewed date:12/07/2024 03:06:05 PM Interpretation: Performing Lab:[facility], [address] [place] [address], Phone - [phone], Director - Munira Notes/Report: Clinical Information:[id number] Clinical Information:[id number] Age Gdln ACOG Testing 21-29 DIAGNOSIS: NEGATIVE FOR INTRAEPITHELIAL LESION OR MALIGNANCY. PREDOMINANCE OF COCCOBACILLI CONSISTENT WITH SHIFT IN VAGINAL LIAN IS PRESENT. Specimen adequacy: Satisfactory for evaluation. Endocervical and/or squamous metaplastic cells (endocervical component) are present. Clinician provided ICD10: Z01.419 Performed by: Gladis Cali, Sales Correspondence Clerk (ASCP) . . Note: The Pap smear is a screening test designed to aid in the detection of premalignant and malignant conditions of the uterine cervix. It is not a diagnostic procedure and should not be used as the sole means of detecting cervical cancer. Both false-positive and false-negative reports do occur. . Test Methodology: This liquid based ThinPrep(R) pap test was screened with the use of an image guided system. . The HPV DNA reflex criteria were not met with this specimen result therefore, no HPV testing was performed. . Chlamydia, Nuc. Acid Amp Negative Negative Gonococcus, Nuc. Acid Amp Negative Negative Trich vag by ARACELY Negative Negative Test, Urine Reviewed date:12/02/2024 08:47:34 AM Interpretation: Performing Lab: Notes/Report: Test, Urine neg Negative - Negative PDF Report Reviewed date:12/07/2024 03:06:04 PM Interpretation: Performing [facility], [address] [place] [address], Phone - [phone], Director - Munira Notes/Report: Clinical Information:[id number] PDF Report1 [facility] 14 Comprehensive Metabol ic Panel* Reviewed date:11/30/2024 07:54:10 AM Interpretation: Performing [facility], [address] [facility], Phone - [phone], Director - Arsh Notes/Report: Glucose 94 70-99 [...] 32 0-32 IU/L CBC With Differential/Platel et* Reviewed date:11/30/2024 07:54:10 AM Interpretation: Performing Lab:[facility], [address] [place] [address], Phone - [phone], [facility] Notes/Report: WBC 8.5 3.4-10.8 x10E3/uL RBC 4.40 [...] Antibodies Reviewed date:11/28/2024 06:04:39 PM Interpretation:Negative [facility]forming [facility], [address] [place] [address], Phone - [phone], Director - [facility] Notes/Report: RPR Non Reactive Non Reactive HIV Screen *HIV 1, 2 Ab, p24 Ag (180923) Reviewed date:11/28/2024 06:06:24 PM Interpretation:Negative Performing Lab:[address], Phone - [phone], Director - [facility] Notes/Report: HIV Ab/p24 Ag Screen Non Reactive Non Reactive HIV-1/HIV-2 antibodies and HIV-1 p24 antigen were NOT detected. There is no laboratory evidence of HIV infection. HIV Negative Test, Urine Reviewed date:11/26/2024 08:38:33 AM Interpretation: Performing Lab: Notes/Report: Test, Urine Neg Negative - Negative QuantiFERON-TB Gold Plus (18 2879) Reviewed date:11/28/2024 06:04:39 PM Interpretation:Abnormal Performing Lab:[address], Phone - [phone], Director - [facility] Notes/Report: QuantiFERON Incubation Incubation performed. QuantiFERON-TB Gold [...] PCP neg BUP neg Reason For Referral Reason Positive Quantiferon Diagnosis 1 Positive QuantiFERON -TB Gold test (R76.12) Referral Organization [facility] Referring Provider First Name Ruth Referring Provider Last Name Short Referring Provider Speciality [facility] icicarl Referred Provider Specialty Infectious D isease General Notes Silvia Riggs 12/06/2024 03:30:14 PM >Spoke with staff who report that this patients insurance is accepted. Clinical Notes [facility] Infectious Disea se, [address], [place]. [address], , Referral Priority Routine Medications Medication SIG (Take, Route, Frequency, Duration) Notes Start Date End Date Status Escitalopram Oxalate 10 MG 1 tablet Orally Once a day for 14 days Active ARIPiprazole 10 MG 1 tablet at bedtime Orally Once a day for 14 days Active hydrOXYzine HCl 25 MG 1 tablet as needed Orally three times a day for 14 days As needed for anxious distress Active ARIPiprazole 2 MG 1 tablet at bedtime Orally Once a day for 14 days Active Xulane 150-35 MCG/24HR as directed Transdermal Not-Taking rifAMPin Active OLANZapine 15 MG 1 tablet Orally Once a day for 30 day(s) Not-Taking Benztropine Mesylate 1 MG 1 tablet at bedtime Orally Once a day for 30 days 11/29/2024 Active metroNIDAZOLE 500 MG 1 tablet Orally Twi ce daily for 7 days on unit 12/05/2024 Active Propranolol HCl 20 MG 1 tablet Orally Tw ice a day for 30 day(s) 11/29/2024 Active hydrOXYzine Pamoate 25 MG 1 capsule at bedtime as needed Orally Once a day Active Saline [place] 0.65 % as directed Nasally up to 3 times daily for 14 days As needed on unit 11/30/2024 Active Famotidine 20 MG 1 tablet at as needed Orally Once a day for 30 days As needed for acid reflux on unit 11/30/2024 Active Social History Tobacco Use: Social History Observation Description Date Details (start date - stop date) Current Smoker NA - NA Sex Assigned At : Social History Observation Description Sex Assigned At Female PRAPARE Question Answer Notes Date Completed/Updated: 12/06/2024 What is your current housing situation? I have h ousing Are you worried about losing your housing? Yes What is the highest level of school that you have finished? High school diploma or GED What is your current work situation? Oth erwise unemployed but not seeking work (ex. 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 Check all that apply I do not have problems meeting my needs Has lack of transportation k ept you from medical appointments, meetings, work or from getting things needed for daily living? No How often do you see or talk to people that you care about and feel close to? (For example: talking to friends on the phone, visiting friends or family, going to jehovah's witness or club meetings) 3 to 5 times a week How stressed are you? Stress is when someone feels tense, nervous, anxious, or can\t sleep at night because their mind is troubled Somewhat In the past year have you sp ent more than 2 nights in a row in a prison, fpc, custodial center, or juvenile correctional facility? No Do you feel physically and e motionally safe where you currently live? No In the past year, have you b een afraid of your partner or ex-partner? 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 [...] to 10 oz of ETOH a day Social History- [facility] [place] Current [facility] Describe childhood- Abuse/Trauma-yes 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 [...] to 10 oz of ETOH a day Social History- location- [facility] Describe childhood- Abuse/Trauma-yes 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 [...] to 10 oz of ETOH a day Social History- [facility] Describe childhood- Abuse/Trauma-yes 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 [...] to 10 oz of ETOH a day Social History- location- [facility] Describe childhood- Abuse/Trauma-yes 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 [...] W/U Status Risk Notes Problem Tobacco user (522102011) Nicotine dependence, unspecified, uncomplicated (F17.200) Active confirmed Problem Bipolar 1 disorder (739777999) Bipolar 1 disorder (F31.9) Active confirmed Problem Alcohol use disorder (0982426701) Alcohol use disorder (F10.99) Active confirmed Problem Acid reflux (119237601) Acid reflux (K21.9) Active confirmed Problem Tobacco use (963302005) Tobacco use disorder (F17.200) Active confirmed Problem Interferon gamma assay result indeterminate (851080312) 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 Vital Signs Heart Rate 83 /min 12/02/2024 Temperature 98.4 degrees Fahrenheit 11/25/2024 Respiratory Rate 16 /min 12/02/2024 Blood pressure diastolic 62 mm Hg 12/02/2024 Oximetry 98 % 12/02/2024 Height 62.5 in 12/02/2024 Blood pressure systolic 106 mm Hg 12/02/2024 Weight 129 lbs 12/02/2024 BMI 23.22 kg/m2 12/02/2024 Encounters Encounter Location Date Provider Diagnosis [facility] [address] [place] [address] 11/25/2024 Tatiana Ruiz Bipolar 1 disorder F31.9 [facility] [address] [place] [address] 11/25/2024 Ruth Tobar Adult general medica l exam Z00.00 ; Exposure to potential infection Z20.9 and Nicotine dependence, unspecified, uncomplicated F17.200 [facility] [address] [place] [address] 11/26/2024 Sanjay Vitale Alcohol use disorder F10.99 and Tobacco use disorder F17.[address] [address] 11/29/2024 Kelly Harden Bipolar 1 disorder F31.9 ; Alcohol use disorder F10.99 and Nicotine dependence, unspecified, uncomplicated F17.200 [facility] [address] [place] [address] 11/30/2024 Ruth Tobar Acid reflux K21.9 ; Establishing care with new doctor, encounter for Z71.89 ; Nasal dryness J34.89 and Nicotine dependence, unspecified, uncomplicated F17.200 [facility] [address] [place] [address] 12/02/2024 Ruth Tobar Well woman exam with routine gynecological exam Z01.419 [facility] [address] [address] 12/14/2024 Kelly Harden Bipolar 1 disorder F31.9 ; Alcohol use disorder F10.99 and Nicotine dependence, unspecified, uncomplicated F17.200 [facility] [address] [address] 12/28/2024 Kelly Harden Bipolar 1 disorder F31.9 ; Alcohol use disorder F10.99 and Nicotine dependence, unspecified, uncomplicated F17.[address] [place] [address] 11/28/2024 Ruth Tobar Positive QuantiFERON-TB Gold test R76.12 [facility] [place] [address] 11/30/2024 Sanjay Vitale [facility] [place] [address] 11/30/2024 Kelly Harden [address] [place] [address] 12/05/2024 Ruth Tobar Vaginitis N76.[address] [place] [address] 12/06/2024 Ruth Tobar Positive QuantiFERON-TB Gold test R76.[address] [place] [address] 12/07/[address] [place] [address] 12/07/2024 Ruth [facility] [address] [place] [address] 12/09/2024 Ruth [facility] [address] [place] [address] 12/14/[address] [place] [address] 12/23/2024 Kelly Harden [facility] [address] [address] 12/30/2024 Kelly Harden [facility] [address] [address] 01/04/2025 Kelly Harden Bipolar 1 disorder F31.9 Assessments Encounter Date Diagnosis (ICD Code) Assessment [...] 20 mg BID benztropine 1 mg QHS SGA SE- Discussed risks, benefits and side effects. Discussed possible weight gain leading to lipid and glucose changes, involuntary movements, anticholinergic affects and rare CV events, NMS, Seizure. SSRI Discussed possible side effects: GI upset, headache, decreased libido/anorgasmia, weight gain, signs of serotonin syndrome and risk of activation to suicidality Client may self-administer their own medications. Call for sooner apt if medication has negative effect or client not able to tolerate. Call 911 or go to the closest emergency room right away if you feel like you want to hurt yourself or others. Go to the closest emergency room or call if you have a sudden change in mood or behavior. Confirmed knowledge of [facility] [phone] for clients 20 and under and [facility] Crisis line [phone] and awareness of 988. 12/02/2024 Well woman exam with routine gynecological exam (ICD-10 - Z01.419) 12/05/2024 Vaginitis (ICD-10 - N76.0) 12/06/2024 Positive QuantiFERON-TB Gold test (ICD-10 - R76.12) 11/30/2024 Establishing care with new doctor, encounter for (ICD-10 - Z71.89) 11/30/2024 Acid reflux (ICD-10 - K21.9) 12/14/2024 Bipolar 1 disorder (ICD-10 - F31.9) SGA SE- Discussed risks, benefits and side effects. Discussed possible weight gain leading to lipid and glucose changes, involuntary movements, anticholinergic affects and rare CV events, NMS, Seizure. SSRI Discussed possible side effects: GI upset, headache, decreased libido/anorgasmia, weight gain, signs of serotonin syndrome and risk of activation to suicidality Client may self-administer their own medications. Call for sooner apt if medication has negative effect or client not able to tolerate. Call 911 or go to the closest emergency room right away if you feel like you want to hurt yourself or others. Go to the closest emergency room or call if you have a sudden change in mood or behavior. Confirmed knowledge of [facility] [phone] for clients 20 and under and [facility] Crisis line [phone] and awareness of 988. 12/28/2024 Bipolar 1 disorder (ICD-10 - F31.9) Has Rf's through 02/13/25. SGA SE- Discussed risks, benefits and side effects. Discussed possible weight gain leading to lipid and glucose changes, involuntary movements, anticholinergic affects and rare CV events, NMS, Seizure. SSRI Discussed possible side effects: GI upset, headache, decreased libido/anorgasmia, weight gain, signs of serotonin syndrome and risk of activation to suicidality Client may self-administer their own medications. Call for sooner apt if medication has negative effect or client not able to tolerate. Call 911 or go to the closest emergency room right away if you feel like you want to hurt yourself or others. Go to the closest emergency room or call if you have a sudden change in mood or behavior. Confirmed knowledge of [employer] hotline [phone] for clients 20 and under and [facility] Crisis line [phone] and awareness of 988. 01/04/2025 Bipolar 1 disorder (ICD-10 - F31.9) 12/28/2024 Alcohol use disorder (ICD-10 - F10.99) 12/14/2024 Alcohol use disorder (ICD-10 - F10.99) 11/30/2024 Nasal dryness (ICD-10 - J34.89) 11/29/2024 Alcohol use disorder (ICD-10 - F10.99) reviewed labs today. CLient relieved about kidney/iver function and now wants to start Vivitrol. She will ask for MAT appt. She plans residential treatment as well. 11/25/2024 Nicotine dependence, unspecified, uncomplicated (ICD-10 - F17.200) 11/29/2024 Nicotine dependence, unspecified, uncomplicated (ICD-10 - F17.200) 12/28/2024 Nicotine dependence, unspecified, uncomplicated (ICD-10 - F17.200) 12/14/2024 Nicotine dependence, unspecified, uncomplicated (ICD-10 - F17.200) 11/30/2024 Nicotine dependence, unspecified, uncomplicated (ICD-10 - F17.200) 11/25/2024 Other Feed Research Aide met with Debora to assist in working on building skills to help the consumer gain confidence in their independent living skills. The poem writer practiced with Debora implementing problem solving skills to help facilitate exploration of options including engagement with crisis unit staff and proviers. The poem writer encouraged and engaged in critical thinking of how to use natural resources and coping skills to help manage symptoms in the moment. Feed Research Aide also worked on modeling and practicing with the consumer healthy coping skills to reduce stress and anxiety. 11/25/2024 Other Continue treatment as recommended by [facility] staff. Encouraged patient to obtain routine medical care with patient's own primary care provider or establish as a patient at [facility] if no current primary care provider. 11/26/2024 Other Labs to be completed today. Once results received client will be made aware. If she chooses start Vivitrol for treatment will schedule. 11/30/2024 Other Patient may self-administe r their own medications or may self-administe r their own oral medications per [facility] Protocol. 12/02/2024 Other Patient may self-administe r their own medications or may self-administe r their own oral medications per [facility] Protocol. 12/05/2024 Other Learning About the Safe Use of Antibiotics material was discussed. Pt was educated on use of antibiotic medication including dosing, side effects, adverse effects and anticipated response. Pt was also educated on importance of completing full course of treatment as ordered. Patient voiced understanding of all. 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 [facility] --left there. ER trip prior to admittance [facility] inpatient 11/2024
--- OUTSIDE RECORDS SUMMARY | 2025-01-16 11:20 | XMS_ITS | Encounter Summary ---
Author Organization [facility] Healthcare Address [address] [place] [address] Care Team Providers Care Dictaphone Operator Name Role Phone No, Physician Primary Care Provider [phone] Ruth Tobar SUPERVISOR [employer]STOCK [employer]ARD Primary Care Provider [phone] Encounter Details Date Type Department Care Team (Latest Contact Info) Description 10/17/2019 Ophth Exam Ophthalmology Teo Garduno MD [address] [address] Social History Tobacco Use Types Packs/Day Years Used Date Smoking Tobacco: Every Day Cigarettes 0.3 4 Smokeless Tobacco: Never Alcohol Use Standard Drinks/Week Comments Yes 0 (1 standard drink = 0.6 oz pur e alcohol) 8-12 drinks per week. 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 Gender Identity Not on file Sexual Orientation Not on file documented as of this encounter Plan of Treatment Not on file documented as of this encounter Visit Diagnoses Not on filedocumented in this encounter Additional Health Concerns Infection Onset Date Last Indicated Resolved Time COVID: Suspected 11/15/2024 11/15/2024 11/15/2024 3:44 PM PEDIATRIC SURGEON documented as of this encounter Eye Exam [...] Normal Normal Periphery Normal Normal Care Teams Dictaphone Operator Relationship Specialty Start Date End Date No, Physician PCP - General 02/19/17 12/22/24 Ruth Tobar NP [address] [place] [address] [place] [address] PCP - General Family Medicine 12/23/24 documented as of this encounter
--- OUTSIDE RECORDS SUMMARY | 2025-01-16 11:20 | XMS_ITS | Clinical Summary ---
Author Organization [facility] al Address [address] [place] [address] Care Team Providers Care Manager Maritime Name Role Phone Ruth Tobar DOLL WIGS HACKLER Primary Care Provider [phone] Allergies No known active allergies Medications famotidine (PEPCID) 20 mg tablet Take 1 tablet (20 mg total) by mouth 2 (two) times a day. 30 tablet 02/03/2018 Active OneTouch Verio Flex meter misc as directed 08/23/2021 A ctive OneTouch Delica Plus Lancet 33 gauge misc 07/13/2021 Active vit 05-ggxg-huvet-d vazquez 29 mg iron-1 mg -250 mg combo pack Take by mouth Activ e ibuprofen (ADVIL,MOTRIN) 600 mg tabletIndicatio ns:Cramps Take 1 tablet (600 mg total) by mouth every 6 (six) hours as needed for pain 30 tablet 1 09/10/2021 Active HYDROcodone-dana taminophen (NORCO) 5-325 mg per tabletIndicatio ns:Pain Take 1 tablet by mouth every 4 (four) hours as needed for pain 12 tablet 09/10/2021 Active rifAMPin (RIFADIN) 300 mg capsule Take 2 capsules (600 mg total) by mouth daily 60 capsule 12/23/2024 01/23/20 25 Active Active Problems No known active problems Encounters Date Type Department Care Team Description 12/23/2024 2:00 PM CDT Office Visit [facility] [address] [place] [address] [address] [address] Ja Rich MD Positive QuantiFERON-TB Gold test 12/09/2024 Orders Only [facility] [address] [address] Ja Rich MD 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) 11/16/2024 12:48 PM OPERATIONAL INTELLIGENCE OFFICER - 11/16/2024 11:59 PM OPERATIONAL INTELLIGENCE OFFICER Hospital Encounter [facility] BILL[facility] Emergency, Room R Discharge Disposition: Discharge to home or self care 11/15/2024 5:24 PM OPERATIONAL INTELLIGENCE OFFICER - 11/16/2024 3:38 AM OPERATIONAL INTELLIGENCE OFFICER Emergency [facility] Emergency Department [address] [place] [address] Khris Villalobos MD Ong, Michelle, MD Paranoia (HCC) (Primary Dx) Discharge Disposition: Discharge to psych hospital or psych unit 11/14/2024 9:41 AM OPERATIONAL INTELLIGENCE OFFICER - 11/14/2024 11:59 PM OPERATIONAL INTELLIGENCE OFFICER Hospital Encounter [facility] BILL[facility] Emergency, Room R Discharge Disposition: Discharge to home or self care 11/13/2024 6:13 PM OPERATIONAL INTELLIGENCE OFFICER - 11/14/2024 6:41 AM OPERATIONAL INTELLIGENCE OFFICER Emergency [facility] Emergency Department [address] [place] [address] Norman Garvey MD Wala, Ronny Leblanc MD UTI (urinary tract infection) with pyuria (Primary Dx); Hypokalemia; Paranoia (HCC) Discharge Disposition: Discharge to home or self care 11/13/2024 5:58 PM OPERATIONAL INTELLIGENCE OFFICER - 11/13/2024 11:59 PM OPERATIONAL INTELLIGENCE OFFICER Hospital Encounter [facility] BILLING Emergency, Room R [...] on file Legal Sex Female 2:26 PM OPERATIONAL INTELLIGENCE OFFICER Gender Identity Not on file Sexual Orientation Not on file Obstetrics History Para Term AB IAB SAB Ectopic Multiple Livin g Live Births 2 2 1 1 0 2 2 Date Outcome GA Total Labor Labor/2nd/3rd Weight Sex Type Anes PTL Zoey A1 A5 Name Clin 2016 35w 5d 2.296 kg (5 lb 1 oz) M Vag-S pont Y Livin g Delivery Location:[facility] 2020 Term 38w 5d 7h 51m 6h 45m/0h 58m/0h 08m 3.123 kg (6 lb 14.2 oz) M Vag-S pont Epidur al N Livin g 9 9 ALAN STOUT, Zohra Loza eth, DO Complications:None Delivery Location:[facility] Last Filed Vital Signs Vital Sign Reading Time Taken Comments Blood Pressure 141/99 11/15/2024 6:09 PM OPERATIONAL INTELLIGENCE OFFICER Pulse 86 11/15/2024 6:09 PM OPERATIONAL INTELLIGENCE OFFICER Temperature 36.7 C (98 F) 12/23/2024 2:15 PM CDT Respiratory Rate 19 11/15/2024 6:09 PM OPERATIONAL INTELLIGENCE OFFICER Oxygen Saturation 98% 11/15/2024 6:09 PM OPERATIONAL INTELLIGENCE OFFICER Inhaled Oxygen Concentration - - Weight 64.4 kg (142 lb) 12/23/2024 2:15 PM CDT Height 160 cm (5' 3 ) 12/23/2024 2:15 PM CDT Body Mass Index 25.15 12/23/2024 2:15 PM CDT Plan of Treatment Health Maintenance Due Date Last Done Comments Cervical Cancer Screening 1996 Depression Screening 1996 Hepatitis C Screening 1996 Varicella Vaccines (1 of 2 - 13+ 2-dose series) 2009 Regular Well Visit/Exam 18-64 2014 Pneumococcal vaccine <65 (1 of 2 - PCV) 2015 Influenza Vaccine (Season Ended) 2025 10/29/2016, 07/15/2012, 07/19/2009 DTaP/Tdap/Td Vaccine (9 - Td or Tdap) 08/06/2031 08/06/2021, 10/24/2016, 06/02/2007, Additional history exists Hepatitis B Screening Completed 01/14/1997 , 1996, 1996 HPV Vaccines Completed 08/18/2012, 05/06, 07/19/2009 Procedures Procedure Name Priority Date/Time Associated Diagnosis Comments ETHANOL Add-On 11/15/2024 10:24 PM OPERATIONAL INTELLIGENCE OFFICER HCG, URINE, QUALITATIVE Timed 11/15/2024 5:34 PM OPERATIONAL INTELLIGENCE OFFICER DRUGS OF ABUSE SCREEN, URINE WITHOUT CONFIRMATION STAT 11/15/2024 5:34 PM OPERATIONAL INTELLIGENCE OFFICER URINALYSIS AND REFLEX TO MICROSCOPIC AND CULTURE STAT 11/15/2024 5:34 PM OPERATIONAL INTELLIGENCE OFFICER ECG 12-LEAD STAT 11/15/2024 4:48 PM OPERATIONAL INTELLIGENCE OFFICER EGFR STAT 11/15/2024 3:01 PM OPERATIONAL INTELLIGENCE OFFICER DIFFERENTIAL AUTO STAT 11/15/2024 3:0 1 PM OPERATIONAL INTELLIGENCE OFFICER CBC WITH AUTO DIFFERENTIAL STAT 11/15/2024 3:01 PM OPERATIONAL INTELLIGENCE OFFICER COMPREHENSIVE METABOLIC PANEL STAT 11/15/2024 3:01 PM OPERATIONAL INTELLIGENCE OFFICER INFLUENZA A/B, RSV, AND COVID-19 PCR STAT 11/15/2024 3:01 PM OPERATIONAL INTELLIGENCE OFFICER EGFR STAT 11/14/2024 2:29 AM OPERATIONAL INTELLIGENCE OFFICER BASIC METABOLIC PANEL STAT 11/14/2024 2:29 AM OPERATIONAL INTELLIGENCE OFFICER CT CHEST ABDOMEN PELVIS WO CONTRAST ED 11/14/2024 12:54 AM OPERATIONAL INTELLIGENCE OFFICER POTASSIUM LEVEL STAT 11/13/2024 9:49 PM OPERATIONAL INTELLIGENCE OFFICER CT HEAD WO CONTRAST ED 11/13/2024 6 :58 PM OPERATIONAL INTELLIGENCE OFFICER HCG, URINE, QUALITATIVE STAT 11/13/2024 6:37 PM OPERATIONAL INTELLIGENCE OFFICER EGFR STAT 11/13/2024 6:37 PM OPERATIONAL INTELLIGENCE OFFICER MAGNESIUM Routine 11/13/2024 6:37 PM OPERATIONAL INTELLIGENCE OFFICER RENAL FUNCTION PANEL STAT 11/13/2024 6:37 PM OPERATIONAL INTELLIGENCE OFFICER EGFR STAT 11/13/2024 6:37 PM OPERATIONAL INTELLIGENCE OFFICER URINALYSIS, MICROSCOPIC ONLY Routine 11/13/2024 6:37 PM OPERATIONAL INTELLIGENCE OFFICER DIFFERENTIAL AUTO STAT 11/13/2024 6:3 7 PM OPERATIONAL INTELLIGENCE OFFICER ERYTHROCYTE SEDIMENTATION RATE STAT 11/13/2024 6:37 PM OPERATIONAL INTELLIGENCE OFFICER DRUGS OF ABUSE SCREEN, URINE WITHOUT CONFIRMATION STAT 11/13/2024 6:37 PM OPERATIONAL INTELLIGENCE OFFICER THYROID FUNCTION CASCADE Add-On 11/13/2024 6:37 PM OPERATIONAL INTELLIGENCE OFFICER COMPREHENSIVE METABOLIC PANEL STAT 11/13/2024 6:37 PM OPERATIONAL INTELLIGENCE OFFICER CBC WITH AUTO DIFFERENTIAL STAT 11/13/2024 6:37 PM OPERATIONAL INTELLIGENCE OFFICER URINE CULTURE Routine 11/13/2024 6:37 PM OPERATIONAL INTELLIGENCE OFFICER URINALYSIS AND REFLEX TO MICROSCOPIC AND CULTURE Routine 11/13/2024 6:37 PM OPERATIONAL INTELLIGENCE OFFICER from Last 3 Months Results * Ethanol (11/15/2024 10:24 PM OPERATIONAL INTELLIGENCE OFFICER) Ethanol <10 <=10 mg/dL Comment: Interpretive Data Legal limit of intoxication > or = 80 mg/dL Levels > or = 400 mg/dL are potentially TOXIC. Current interpretive data was last revised on 2018. Blood 11/15/2024 10:2 4 PM OPERATIONAL INTELLIGENCE OFFICER 11/15/2024 10:26 PM OPERATIONAL INTELLIGENCE OFFICER us Debora Garcia DO LAB BLOOD ORDERABLES Final Result [facility] ([place]) 1 [facility] Department [place] [address] * Urinalysis reflex to microscopic and culture Urine (11/15/2024 5:34 PM OPERATIONAL INTELLIGENCE OFFICER) Color, ur Straw Yellow Clarity, ur Clear [...] tendency for uric acid stone formation. Source: [facility] [employer] Current Interpretive Data was last revised on [...] for microscopic UA and culture not met. [facility] ([place]) Urine 11/15/2024 5:34 PM OPERATIONAL INTELLIGENCE OFFICER 11/15/2024 5:39 PM OPERATIONAL INTELLIGENCE OFFICER Khris Villalobos MD LAB MICROBIOLOGY - GENERAL ORD ERABLES Final Result [facility] ([place]) 1 [facility] Department [place] [address] * (ABNORMAL) Drugs of Abuse Screen, Urine without Confirmation (11/15/2024 5:34 PM OPERATIONAL INTELLIGENCE OFFICER) Amphetamine, ur Not Detected CutOff 500ng/mL Comment: [...] revised on 2017. Urine 11/15/2024 5:34 PM OPERATIONAL INTELLIGENCE OFFICER 11/15/2024 5:39 PM OPERATIONAL INTELLIGENCE OFFICER Narrative [facility] ([place]) - 11/15/2024 6:07 PM OPERATIONAL INTELLIGENCE OFFICER Drug of Abuse screening is performed by immunoassay for medical purposes only. This is not to be used for Pain Management purposes. Khris Villalobos MD LAB URINE ORDERABLES Final Res ult [facility] ([place]) [address] [facility] [place] [address] * hCG, urine, qualitative (11/15/2024 5:34 PM OPERATIONAL INTELLIGENCE OFFICER) HCG, ur Negative Negative Urine 11/15/2024 5:34 PM OPERATIONAL INTELLIGENCE OFFICER 11/15/2024 7:04 PM OPERATIONAL INTELLIGENCE OFFICER Debora Garcia DO LAB URINE ORDERABLES Final Result Performing Organization Address [facility] Co de Phone Number [facility] ([place]) 1 [facility] [place] [address] * ECG 12 lead (11/15/2024 4:48 PM OPERATIONAL INTELLIGENCE OFFICER) 11/15/2024 4:48 PM OPERATIONAL INTELLIGENCE OFFICER Narrative [facility] - 11/16/2024 6:38 AM OPERATIONAL INTELLIGENCE OFFICER Vent Rate: 80 bpm RR Interval: 747 msec DE Interval: 187 msec QRS Duration: 82 msec QT Interval: 355 msec QTC Interval: 391 msec P-R-T [place]: 70 - 29 - 57 degrees IMPRESSION: SINUS RHYTHM NORMAL ECG Electronically Signed By: Nathaniel Carranza MD Khris Villalobos MD ECG ORDERABLES Final Result Performing Organization Address City/[facility]/ZIP Co de Phone Number [facility] * Influenza A/B, RSV, and COVID-19 PCR Nasopharyngeal (11/15/2024 3:01 PM OPERATIONAL INTELLIGENCE OFFICER) Pathologist [facility] COVID-19 RNA Negative Negative Influenza A RNA Negative Negative [facility] ([place]) Influenza B RNA Negative Negative [facility] ([place]) RSV RNA Negative Negative [facility] ([place]) Comment: Interpretive data: Testing performed by [facility]. This test is performed using the [employer] Xpert Xpress CoV-2/Flu/RSV plus assay. This is a multiplex, real- time reverse transcriptase PCR assay intended for the qualitative detection of nucleic acid from SARS-CoV-2, influenza A, influenza B, and respiratory syncytial virus. This assay has been cleared by the [place] Food and Drug administration. The performance characteristics have been verified by the [facility]. Results must be considered in the clinical context, and a negative result does not rule out infection. Interpretive Data last revised 2023 Nasopharyngeal 11/15/2024 3: 01 PM OPERATIONAL INTELLIGENCE OFFICER 11/15/2024 3:03 PM OPERATIONAL INTELLIGENCE OFFICER Narrative [facility] ([place]) - 11/15/2024 3:42 PM OPERATIONAL INTELLIGENCE OFFICER Is the Patient experiencing symptoms consistent with COVID?->Yes Khris Villalobos MD LAB MICROBIOLOGY - GENERAL ORD ERABLES Final Result [facility] ([place]) 1 [facility] Department [place] [address] * eGFR (11/15/2024 3:01 PM OPERATIONAL INTELLIGENCE OFFICER) Pathologist [facility] eGFR >90 >=60 mL/min/1. 73 m2 Comment: [...] last reviewed 2021. Blood 11/15/2024 3:01 PM OPERATIONAL INTELLIGENCE OFFICER 11/15/2024 3:03 PM OPERATIONAL INTELLIGENCE OFFICER us Khris Villalobos MD LAB BLOOD ORDERABLES Final Res ult [facility] ([place]) 1 [facility] Department [place] [address] * Differential, auto (11/15/2024 3:01 PM OPERATIONAL INTELLIGENCE OFFICER) Neutrophil abs 5.5 1.5 - 6.5 K/cumm [...] revised on 2018. Blood 11/15/2024 3:01 PM OPERATIONAL INTELLIGENCE OFFICER 11/15/2024 3:03 PM OPERATIONAL INTELLIGENCE OFFICER us Khris Villalobos MD LAB BLOOD ORDERABLES Final Res ult [facility] ([place]) 1 [facility] Department [place] [address] * (ABNORMAL) CBC with auto differential (11/15/2024 3:01 PM OPERATIONAL INTELLIGENCE OFFICER) WBC 8.2 3.8 - 9.9 K/cumm Hgb [...] RDW SD 41.1 35.7 - 48.1 fL [facility] ([place] NRBC abs 0.00 0.00 - 0.01 K/cumm [facility] ([place]) Blood 11/15/2024 3:01 PM OPERATIONAL INTELLIGENCE OFFICER 11/15/2024 3:03 PM OPERATIONAL INTELLIGENCE OFFICER us Khris Villalobos MD LAB BLOOD ORDERABLES Final Res ult [facility] ([place]) 1 [facility] Department [place] [address] * (ABNORMAL) Comprehensive metabolic panel (11/15/2024 3:01 PM OPERATIONAL INTELLIGENCE OFFICER) Sodium 136 135 - 145 mmol/L Potassium, [...] [facility] ([place]) Blood 11/15/2024 3:01 PM OPERATIONAL INTELLIGENCE OFFICER 11/15/2024 3:03 PM OPERATIONAL INTELLIGENCE OFFICER us Khris Villalobos MD LAB BLOOD ORDERABLES Final Res ult Performing Organization Address [facility]/ZIP Co de Phone Number [facility] ([place]) 1 [facility] [place] [address] * eGFR (11/14/2024 2:29 AM OPERATIONAL INTELLIGENCE OFFICER) eGFR >90 >=60 mL/min/1. 73 m2 Comment: [...] last reviewed 2021. Blood 11/14/2024 2:29 AM OPERATIONAL INTELLIGENCE OFFICER 11/14/2024 2:32 AM OPERATIONAL INTELLIGENCE OFFICER us Ronny Robledo MD LAB BLOOD ORDERABLES Final Re sult Performing Organization Address City/[facility]/ZIP Co de Phone Number [facility] ([place]) 1 [facility] Department [place] [address] * Basic metabolic panel (11/14/2024 2:29 AM OPERATIONAL INTELLIGENCE OFFICER) Sodium 141 135 - 145 mmol/L Potassium, pl 3.3 3.3 - 4.9 mmol/L [facility] ([place]) Chloride 99 97 - 110 mmol/L [facility] CO2 30 22 - 32 mmol/L [facility] ([place]) Anion gap 11 2 - 15 mmol/L [facility] ([place]) BUN 9 6 - 25 mg/dL [facility] ([place]) Creatinine 0.74 0.60 - 1.10 mg/dL [facility] ([place]) Glucose 120 70 - 199 mg/dL [facility] ([place]) Comment: Interpretive Data Fasting glucose [...] 2022. Calcium 9.3 8.5 - 10.3 mg/dL [facility] ([place]) Blood 11/14/2024 2:29 AM OPERATIONAL INTELLIGENCE OFFICER 11/14/2024 2:32 AM OPERATIONAL INTELLIGENCE OFFICER us Ronny Robledo MD LAB BLOOD ORDERABLES Final Re sult [facility] ([place]) 1 [facility] Department [place] [address] * CT Chest Abdomen Pelvis WO Contrast (11/14/2024 12:54 AM OPERATIONAL INTELLIGENCE OFFICER) Anatomical Region Laterality Modality Body N/A Computed Tomogra phy 11/14/2024 1:00 AM OPERATIONAL INTELLIGENCE OFFICER Narrative 11/14/2024 1:13 AM OPERATIONAL INTELLIGENCE OFFICER EXAM DESCRIPTION: CT CHEST ABDOMEN PELVIS WO [...] Barbara Burkett M.D. SN: SN Report ID: [id number] Reading Location: [id number] Procedure Note Barbara Burkett MD - 11/14/2024 [...] by Barbara Burkett M.D. SN: Report ID: [id number] Reading Location: [id number] Norman Garvey MD IMG CT PROCEDURES Final Res ult * (ABNORMAL) Potassium (11/13/2024 9:49 PM OPERATIONAL INTELLIGENCE OFFICER) Potassium, pl 2.4(C) 3.3 - 4.9 mmol/L Comment:Critical Result call ed by [email or web address] at 2024-11-13 22:56:05. Result Read Back by Sarah Brito ED Blood 11/13/2024 9:49 PM OPERATIONAL INTELLIGENCE OFFICER 11/13/2024 9:51 PM OPERATIONAL INTELLIGENCE OFFICER Norman Garvey MD LAB BLOOD ORDERABLES Final Result [facility] [place]) 1 [facility] Department [place] [address] * CT Head WO Contrast (11/13/2024 6:58 PM OPERATIONAL INTELLIGENCE OFFICER) Anatomical Region Laterality Modality Head and Neck N/A Computed Tomogra phy 11/13/2024 8:03 PM OPERATIONAL INTELLIGENCE OFFICER Narrative 11/13/2024 8:14 PM OPERATIONAL INTELLIGENCE OFFICER EXAM DESCRIPTION: CT HEAD WO CONTRAST REASON [...] Jeyson Kauffman M.D. KT: DOUG Report ID: [id number] Reading Location: [id number] Procedure Note Jeyson Kauffman MD - 11/13/2024 [...] Jeyson Kauffman M.D. KT: KT Report ID: [id number] Reading Location: [place] [address] Normna Garvey MD IMG CT PROCEDURES Final Res ult * eGFR (11/13/2024 6:37 PM OPERATIONAL INTELLIGENCE OFFICER) eGFR >90 >=60 mL/min/1. 73 m2 Comment: [...] last reviewed 2021. Blood 11/13/2024 6:37 PM OPERATIONAL INTELLIGENCE OFFICER 11/13/2024 9:40 PM OPERATIONAL INTELLIGENCE OFFICER Norman Garvey MD LAB BLOOD ORDERABLES Final Result [facility] ([place]) 6 [facility] Department [place] [address] * eGFR (11/13/2024 6:37 PM OPERATIONAL INTELLIGENCE OFFICER) eGFR >90 >=60 mL/min/1. 73 m2 Comment: [...] last reviewed 2021. Blood 11/13/2024 6:37 PM OPERATIONAL INTELLIGENCE OFFICER 11/13/2024 7:06 PM OPERATIONAL INTELLIGENCE OFFICER us Norman Garvey MD LAB BLOOD ORDERABLES Final Result [facility] ([place]) 1 [facility] Department [place] [address] * (ABNORMAL) Differential, auto (11/13/2024 6:37 PM OPERATIONAL INTELLIGENCE OFFICER) Neutrophil abs 11.0(H) 1.5 - 6.5 K/cumm [...] revised on 2018. Blood 11/13/2024 6:37 PM OPERATIONAL INTELLIGENCE OFFICER 11/13/2024 7:06 PM OPERATIONAL INTELLIGENCE OFFICER Norman Garvey MD LAB BLOOD ORDERABLES Final Result Performing Organization Address [facility] Co de Phone Number [facility] ([place]) 1 [facility] Department [place] [address] * Thyroid Function [place] (11/13/2024 6:37 PM OPERATIONAL INTELLIGENCE OFFICER) TSH 0.53 0.30 - 4.20 mcIUnit/mL Blood 11/13/2024 6:37 PM OPERATIONAL INTELLIGENCE OFFICER 11/13/2024 7:06 PM OPERATIONAL INTELLIGENCE OFFICER Norman Garvey MD LAB BLOOD ORDERABLES Final Result Performing Organization Address City/[facility] Co de Phone Number [facility] ([place]) 1 [facility] Department [place] [address] * (ABNORMAL) Urinalysis reflex to microscopic and culture Urine, clean voided (11/13/2024 6:37 PM OPERATIONAL INTELLIGENCE OFFICER) Color, ur Yellow Yellow Clarity, ur Turbid(A) [...] tendency for uric acid stone formation. Source: [facility] [employer] Current Interpretive Data was last revised on [...] ([place]) Urine, clean voided 11/13/2024 6:37 PM OPERATIONAL INTELLIGENCE OFFICER 11/13/2024 7:05 PM OPERATIONAL INTELLIGENCE OFFICER us Norman Garvey MD LAB MICROBIOLOGY - GENERAL ORDERABLES Final Result [facility] ([place]) 1 [facility] Department [place] [address] * (ABNORMAL) CBC with auto differential (11/13/2024 6:37 PM OPERATIONAL INTELLIGENCE OFFICER) WBC 13.7(H) 3.8 - 9.9 K/cumm Hgb 14.5 11.9 - 15.5 g/dL [facility] ([place]) Hct 42.5 35.6 - 45.5 % [facility] ([place]) Plt 426(H) 150 - 400 K/cumm [facility] ([place]) MPV 8.8(L) 9.1 - 12.3 fL [facility] ([place]) RBC 4.65 3.90 - 5.20 M/cumm [facility] ([place]) MCV 91.4 81.3 - 96.4 fL [facility] ([place]) MCH 31.2 27.1 - 33.3 pg [facility] ([place]) MCHC 34.1 32.3 - 35.7 g/dL [facility] ([place]) RDW CV 11.9 11.1 - 14.9 % [facility] ([place]) RDW SD 39.9 35.7 - 48.1 fL [facility] ([place]) NRBC abs 0.00 0.00 - 0.01 K/cumm [facility] ([place]) Blood 11/13/2024 6:37 PM OPERATIONAL INTELLIGENCE OFFICER 11/13/2024 7:06 PM OPERATIONAL INTELLIGENCE OFFICER Norman Garvey MD LAB BLOOD ORDERABLES Final Result [facility] ([place]) 1 [facility] Department [place] [address] * (ABNORMAL) Drugs of Abuse Screen, Urine without Confirmation (11/13/2024 6:37 PM OPERATIONAL INTELLIGENCE OFFICER) Pathologist [facility] Amphetamine, ur Not Detected CutOff 500ng/mL Comment: [...] revised on 2017. Urine 11/13/2024 6:37 PM OPERATIONAL INTELLIGENCE OFFICER 11/13/2024 7:56 PM OPERATIONAL INTELLIGENCE OFFICER Narrative [facility] ([place]) - 11/13/2024 8:10 PM OPERATIONAL INTELLIGENCE OFFICER Drug of Abuse screening is performed by immunoassay for medical purposes only. This is not to be used for Pain Management purposes. Norman Garvey MD LAB URINE ORDERABLES Final Result Performing Organization Address City/[facility]/ZIP Co de Phone Number [facility] ([place]) 1 [facility] Department [place] [address] * hCG, urine, qualitative (11/13/2024 6:37 PM OPERATIONAL INTELLIGENCE OFFICER) HCG, ur Negative Negative Urine 11/13/2024 6:37 PM OPERATIONAL INTELLIGENCE OFFICER 11/14/2024 12:12 AM OPERATIONAL INTELLIGENCE OFFICER Ronny Robledo MD LAB URINE ORDERABLES Final Re sult Performing Organization Address City/[facility]/ZIP Co de Phone Number [facility] ([place]) [address] [facility] [place] [address] * (ABNORMAL) Urinalysis, microscopic only (11/13/2024 6:37 PM OPERATIONAL INTELLIGENCE OFFICER) WBC, ur 21-50(A) 0 - 5 /HPF RBC, ur 6-10(A) 0 - 2 /HPF [facility] ([place]) Epithelial cells, squamous, ur 21-50(A) 0 - 5 /HPF [facility] ([place]) Bacteria, ur Trace(A) [facility] ([place]) Mucous, ur Present(A) [facility] ([place]) Culture Reflex Comment Reflex to urine culture will be performed. [facility] ([place]) Urine, clean voided 11/13/2024 6:37 PM OPERATIONAL INTELLIGENCE OFFICER 11/13/2024 7:05 PM OPERATIONAL INTELLIGENCE OFFICER Norman Garvey MD LAB URINE ORDERABLES Final Result Performing Organization Address [facility] Co de Phone Number [facility] ([place]) 1 [facility] [place] [address] * (ABNORMAL) Erythrocyte sedimentation rate (11/13/2024 6:37 PM OPERATIONAL INTELLIGENCE OFFICER) Erythrocyte sedimentation rate 23(H) 1 - 20 mm/hr Blood 11/13/2024 6:37 PM OPERATIONAL INTELLIGENCE OFFICER 11/13/2024 7:06 PM OPERATIONAL INTELLIGENCE OFFICER Norman Garvey MD LAB BLOOD ORDERABLES Final Result Performing Organization Address [facility] Co de Phone Number [facility] ([place]) 1 [facility] [place] [address] * Urine culture Urine, clean voided (11/13/2024 6:37 PM OPERATIONAL INTELLIGENCE OFFICER) Report Final Report: Growth indicative of contamination with periurethral lian. Please submit a new specimen with special attention given to the collection process and to prompt transport to the laboratory. Comment:Testing performed by : [facility], [address] [facility], [place]., [address] Organism GROWTH INDICATES CONTAM WITH PERIURETHRAL LIAN. [facility] ([place]) Urine, clean voided 11/13/2024 6:37 PM OPERATIONAL INTELLIGENCE OFFICER 11/13/2024 10:29 PM OPERATIONAL INTELLIGENCE OFFICER Narrative [facility] ([place]) - 11/15/2024 4:37 PM OPERATIONAL INTELLIGENCE OFFICER Urine culture reflexed based upon urinalysis results. Testing performed by [facility] ([phone]) Norman Garvey MD LAB MICROBIOLOGY - GENERAL ORDERABLES Final Result [facility] ([place]) 1 [facility] Department [place] [address] * Magnesium (11/13/2024 6:37 PM OPERATIONAL INTELLIGENCE OFFICER) Magnesium 2.0 1.4 - 2.5 mg/dL Blood 11/13/2024 6:37 PM OPERATIONAL INTELLIGENCE OFFICER 11/13/2024 9:40 PM OPERATIONAL INTELLIGENCE OFFICER Norman Garvey MD LAB BLOOD ORDERABLES Final Result Performing Organization Address City/[facility]/ZIP Co de Phone Number SABALESA BUI (MICHAEL) [address] [facility] [place] [address] * (ABNORMAL) Renal function panel (11/13/2024 6:37 PM OPERATIONAL INTELLIGENCE OFFICER) Sodium 139 135 - 145 mmol/L Potassium, pl 2.4(C) 3.3 - 4.9 mmol/L [facility] (MICHAEL) Comment:Critical Result call ed by [id number] at 2024-11-13 21:54:47. Result Read Back by [...] 10.1 8.5 - 10.3 mg/dL [facility] (MCIHAEL) Phosphorus, pl 2.1(L) 2.3 - 4.5 mg/dL [facility] (MICHAEL) Albumin 4.5 3.5 - 5.0 g/dL [facility] (MICHAEL) Blood 11/13/2024 6:37 PM OPERATIONAL INTELLIGENCE OFFICER 11/13/2024 9:40 PM OPERATIONAL INTELLIGENCE OFFICER Narrative [facility] (MICHAEL) - 11/13/2024 9:54 PM OPERATIONAL INTELLIGENCE OFFICER Confirm potassium Norman Garvey MD LAB BLOOD ORDERABLES Final Result [facility] (MICHAEL) 1 [facility] Department of Laboratories [place], [place] [id number] * (ABNORMAL) Comprehensive metabolic panel (11/13/2024 6:37 PM OPERATIONAL INTELLIGENCE OFFICER) Sodium 137 135 - 145 mmol/L Potassium, pl 2.1(C) 3.3 - 4.9 mmol/L [facility] (MICHAEL) Comment:Critical Result call ed by [id number] at 2024-11-13 19:47:30. Result Read Back by [...] [facility] (MICHAEL) Blood 11/13/2024 6:37 PM OPERATIONAL INTELLIGENCE OFFICER 11/13/2024 7:06 PM OPERATIONAL INTELLIGENCE OFFICER Norman Garvey MD LAB BLOOD ORDERABLES Final Result [facility] (MICHAEL) 1 [facility] Department [place] [address] from Last 3 Months Insurance [facility] ACCESS CHOICE Member Subscriber Plan / Payer (Ef fective 2019-Present) Name:Debora Ramirez Member ID:[id number] Relation to Subscriber:Child Name:JENNIFER RAMIREZ Subscriber ID:[id number] Date of :1970 (Home) Address: [address] [place] [id number] Payer ID:[id number] (NAIC) Type:[employer] Address: [phone] [facility] ACCESS CHOICE Member Subscriber Plan / Payer (Ef fective 2018-Present) Name:Eran Ramirezjerri Patel Member ID:[id number] Relation to Subscriber:Child Name:JENNIFER RAMIREZ Subscriber ID:[id number] Date of :1970 (Home) Address: [address] [place] [address] Payer ID:[id number] (NAIC) Type:[employer] Address: [phone] [facility] Advance Directives For more information, please contact: [phone] * Full Code (Latest Code Status on File) Date Activated Date Inactivated Comments 09/08/2021 6:10 PM 09/10/2021 7:41 PM * Full Code Date Activated Date Inactivated Comments 09/08/2021 2:59 AM 09/08/2021 6:10 PM Full CPR in case of cardiopulmonary arrest Care Teams Manager Maritime Relationship Specialty Start Date End Date Ruth Tobar NP [address] [place] [address] PCP - General Family Medicine 12/23/24
--- OUTSIDE RECORDS SUMMARY | 2025-01-16 11:20 | XMS_ITS | Data Portability ---
Author Organization [facility] NATANAEL Lavern Sellers Address [address] [place] [address] Care Team Providers Care Club Waiter/Waitress Name Role Phone HÉCTOR NEGRETE Residential Assistant Assessment Encounter Date Assessment Date Assessment LastModified by Organization Details LastModified Time 04/01/2022 04/01/2022 will check STD panel and call with results. Told to keep GI diary of BMs and timing compared to pain Not available 04/01/2022 11:25:24 01/03/2023 01/03/[address] exam benign, doing well on patch kids are 6&1. SHe said her oldest's main activity is getting on my nerves. Not available 01/03/2023 10:52:50 01/08/2024 01/08/[address] exam benign doing well with patches requests STD testing Not available 01/08/2024 16:06:15 12/16/2024 12/16/2024 Will do test today, and again in 2 weeks. no intercourse will start patches either in 2 weeks or on next cycle Not available 12/16/2024 15:54:04 Plan of Treatment Reminders Order Date Submit Date Provider Last Modified By Organization Details Last Modified Time Details Appointments None recorded. Lab urinalysi s, dipstick 2023 024 In-Office Order, Internal Use Only DO Not Attach Compendium DO Not Attach Compendium, Do Not Delete/merge, [id number] 16:06:17 cytology report, thin prep, smear or scraping, cervical or vaginal - cervix/en docervix 2023 024 [facility], [address], [address], [place], [address], 4 07:13:44 cytology report, thin prep, smear or scraping, cervical or vaginal 2022 023 [facility], [address], [address], [place], [address], 3 07:18:33 vaginal pathogens panel, ARACELY+probe , vaginal fluid 2021 022 [facility], [address], [address], [place], [address], 2 13:09:34 chlamydia trachomat is + neisseria gonorrhoe ae + trichomon as vaginalis DNA panel, ARACELY+probe , unspecifi ed specimen 2021 022 [facility], [address], [address], [place], [address], 2 07:12:09 Referral None recorded. Procedures None recorded. Surgeries None recorded. Imaging None recorded. Medication Orders Xulane 150 mcg-35 mcg/24 hr transderm al patch 2024 025 [facility] #[id number], [address], [place], [id number], 5 15:54:10 Xulane 150 mcg-35 mcg/24 hr transderm al patch 2023 024 [id number], [address], [place], [id number], 4 16:12:31 Xulane 150 mcg-35 mcg/24 hr transderm al patch 2022 023 [facility], [address], [place], [place], [id number], 3 10:53:15 fluconazo le 150 mg tablet 2021 022 [facility], [address], [place], [place], [id number], 3 09:51:07 Patient TargetsNo targets recorded. Patient Instructions Encounter Date Encounter Id Patient Instructions Last Modified By Organization Details Last Modified Time 04/01/2022 [id number] A healthy lifestyle: care instructions Not available 04/01/2022 12:32:35 Quitting Tobacco : Care Instructions Not available 04/01/2022 12:32:35 05/29/2022 [id number] On the date of this encounter, I was immediately available to assist the resident/fellow in the care of the patient, and have reviewed and agree with the resident s findings and plan of care. [email or web address] Not available 06/02/2022 22:34:47 01/03/2023 [id number] A healthy lifestyle: care instructions Not available 01/03/2023 10:47:35 Reason for Referral None Reported. Results Created Date Observation Date Name Description Value Unit Range Abnormal Flag Note LastModifiedBy Organization Detail LastModifiedTime 04/01/2004/02/2022 CT, NG, TRICH VAG BY ARACELY chlamydia by ARACELY Negati ve negati ve Not Available [facility] ([facility]) [address] [place], [address], 04/03/2022 07:12:09 04/01/20 22 04/02/2022 CT, NG, TRICH VAG BY ARACELY gonococcus by ARACELY Negati ve negati ve Not Available [facility] ([facility]) [address] [place], [address], 04/03/2022 07:12:09 04/01/20 22 04/02/2022 CT, NG, TRICH VAG BY ARACELY trich vag by ARACELY Negati ve negati ve Not Available [facility] ([facility]) [address] [facility], [place], [address], 04/03/2022 07:12:09 05/29/20 22 05/31/2022 NUSWA B VAGIN ITIS PLUS (VG+) atopobium vaginae Low - 0 score Not Available [facility] ([facility]) [address] [facility], [place], [address], 05/31/2022 13:09:34 05/29/20 22 05/31/2022 NUA B VAGIN ITIS PLUS (VG+) bvab 2 Low - 0 score Not Available [facility] ([facility]) [address] [facility], [place], [address], 05/31/2022 13:09:34 05/29/20 22 05/31/2022 NUA B VAGIN ITIS PLUS (VG+) megasphaera 1 Low - 0 score Calcu late total score by marissa g the 3 indiv idual bacte rial vagin [...] Drug Admin istra tion. Not Available [facility] ([facility]) [address] [facility], [place], [address], 05/31/2022 13:09:34 05/29/20 22 05/31/2022 NUA B VAGIN ITIS PLUS (VG+) stephanie albicans, ARACELY Positi ve negati ve abnormal Not Available [facility] ([facility]) [address] [facility], [place], [address], 05/31/2022 13:09:34 05/29/20 22 05/31/2022 NUSWA B VAGIN ITIS PLUS (VG+) stephanie glabrata, ARACELY Negati ve negati ve Not Available [facility] ([facility]) [address] [facility], [place], [address], 05/31/2022 13:09:34 05/29/20 22 05/31/2022 NUSWA B VAGIN ITIS PLUS (VG+) trich vag by ARACELY Negati ve negati ve Not Available [facility] ([facility]) [address] [facility], [place], [address], 05/31/2022 13:09:34 05/29/20 22 05/31/2022 NUSWA B VAGIN ITIS PLUS (VG+) chlamydia trachomatis, ARACELY Negati ve negati ve Not Available [facility] ([facility]) [address] [facility], [place], [address], 05/31/2022 13:09:34 05/29/20 22 05/31/2022 NUSWA B VAGIN ITIS PLUS (VG+) neisseria gonorrhoeae, ARACELY Negati ve negati ve Not Available [facility] ([facility]) [address] [place], [address], 05/31/2022 13:09:34 01/04/20 23 01/07/2023 IGP,C TNGTV ,RFX APTIM A HPV ASCU chlamydia, nuc. acid amp Negati ve negati ve Not Available [facility] ([facility]) [address] [place], [address], 01/10/2023 07:18:33 01/04/20 23 01/07/2023 IGP,C TNGTV ,RFX APTIM A HPV ASCU gonococcus, nuc. acid amp Negati ve negati ve Not Available [facility] ([facility]) [address] [place], [address], 01/10/2023 07:18:33 01/04/20 23 01/07/2023 IGP,C TNGTV ,RFX APTIM A HPV ASCU trich vag by ARACELY Negati ve negati ve Not Available [facility] ([facility]) [address] [place], [address], 01/10/2023 07:18:33 01/04/20 23 01/09/2023 IGP,C TNGTV ,RFX APTIM A HPV ASCU diagnosis: Theron BALL AMADO FOR INTRA EPITH ELIAL LESIO N OR RADHA GOETZ . Not Available [facility] ([facility]) [address] [place], [address], 01/10/2023 07:18:33 01/04/20 23 01/09/2023 IGP,C TNGTV ,RFX APTIM A HPV ASCU specimen adequacy: Theron laws Satis facto ry for evalu ation . Endoc ervic al and/o r squam ous metap lasti c cells (endo cervi collin compo nent) are prese nt. Not Available [facility] ([facility]) [address] [place], [address], 01/10/2023 07:18:33 01/04/20 23 01/09/2023 IGP,C TNGTV ,RFX APTIM A HPV ASCU clinician provided ICD10: Theron laws Z01.4 19 Not Available [facility] ([facility]) [address] [place], [address], 01/10/2023 07:18:33 01/04/20 23 01/09/2023 IGP,C TNGTV ,RFX APTIM A HPV ASCU performed by: Theron linton Cytot denzel laws (ASCP ) Not Available [facility] ([facility]) [address] [place], [address], 01/10/2023 07:18:33 01/04/20 23 01/09/2023 IGP,C TNGTV ,RFX APTIM A HPV ASCU . . Not Available [facility] ([facility]) [address] [facility], [place], [address], 01/10/2023 07:18:33 01/04/20 23 01/09/2023 IGP,C TNGTV ,RFX APTIM A HPV ASCU note: Commen t The Pap smear is a scree rian [...] ts do occur . Not Available [facility] ([facility]) [address] [facility], [place], [address], 01/10/2023 07:18:33 01/04/20 23 01/09/2023 IGP,C TNGTV ,RFX APTIM A HPV ASCU test methodology: Commen t This liqui d based ThinP rep(R ) pap test was scree anahi with the use of an image guide tavo systpavithra m. Not Available [facility] ([facility]) [address] [place], [address], 01/10/2023 07:18:33 01/04/20 23 01/09/2023 IGP,C TNGTV ,RFX APTIM A HPV ASCU . Commen t The HPV DNA refle x crite mckenna were not met with this speci men resul t there fore, no HPV testi ng was perfo rmed. Not Available [facility] ([facility]) [address] [place], [address], 01/10/2023 07:18:33 01/08/20 24 01/12/2024 IGP,C TNGTV ,RFX APTIM A HPV ASCU diagnosis: Commjuve t NEGAT AMADO FOR INTRA EPITH ELIAL LESJAMES N OR RADHA GOETZ . Not Available [facility] ([facility]) [address] [place], [address], 01/13/2024 07:13:43 01/08/20 24 01/12/2024 IGP,C TNGTV ,RFX APTIM A HPV ASCU specimen adequacy: Commjuve t Satis facto ry for evalu ation . Endoc ervic al and/o r squam ous metap lasti c cells (endo cervi collin compo nent) are prese nt. Not Available [facility] ([facility]) [address] [place], [address], 01/13/2024 07:13:43 01/08/20 24 01/12/2024 IGP,C TNGTV ,RFX APTIM A HPV ASCU clinician provided ICD10: Theron laws Z12.4 Not Available [facility] ([facility]) [address] [place], [address], 01/13/2024 07:13:43 01/08/20 24 01/12/2024 IGP,C TNGTV ,RFX APTIM A HPV ASCU performed by: Felipe Gaines (ASCP ) Not Available [facility] ([facility]) [address] [place], [address], 01/13/2024 07:13:43 01/08/20 24 01/12/2024 IGP,C TNGTV ,RFX APTIM A HPV ASCU . . Not Available [facility] ([facility]) [address] [place], [address], 01/13/2024 07:13:43 01/08/20 24 01/12/2024 IGP,C TNGTV [...] ts do occur . Not Available [facility] ([facility]) [address] [place], [address], 01/13/2024 07:13:43 01/08/20 24 01/12/2024 IGP,C TNGTV ,RFX APTIM A HPV ASCU test methodology: - The Thin Prep( R) Image r was unabl e to read this speci men. There fore a manua l revie w was perfo rmed. Not Available [facility] ([facility]) [address] [place], [address], 01/13/2024 07:13:43 01/08/20 24 01/12/2024 IGP,C TNGTV ,RFX APTIM A HPV ASCU . Commen t The HPV DNA refle x crite mckenna were not met with this speci men resul t there fore, no HPV testi ng was perfo rmed. Not Available [facility] ([facility]) [address] [place], [address], 01/13/2024 07:13:43 01/08/20 24 01/12/2024 IGP,C TNGTV ,RFX APTIM A HPV ASCU chlamydia, nuc. acid amp Negati ve negati ve Not Available [facility] ([facility]) [address] [place], [address], 01/13/2024 07:13:43 01/08/20 24 01/12/2024 IGP,C TNGTV ,RFX APTIM A HPV ASCU gonococcus, nuc. acid amp Negati ve negati ve Not Available [facility] ([facility]) [address] [facility] [place], [address], 01/13/2024 07:13:43 01/08/20 24 01/12/2024 IGP,C TNGTV ,RFX APTIM A HPV ASCU trich vag by ARACELY Negati ve negati ve Not Available [facility] ([facility]) [address] [facility], [place], [address], 01/13/2024 07:13:43 01/08/20 24 01/08/2024 urina lysis [...] DO Not Attach Compendium, Do Not Delete/merge, [id number] 01/08/2024 15:48:23 01/08/20 24 01/08/2024 urina lysis , dipst ick Specific [place] 1.020 Not Available In-Off ice Order Internal Use Only DO Not Attach Compendium DO Not Attach Compendium, Do Not Delete/merge, [id number] 01/08/2024 15:48:23 01/08/20 24 01/08/2024 urina lysis , dipst ick Ketone Negati ve Not Available In-Office Order Internal Use Only DO Not Attach Compendium DO Not Attach Compendium, Do Not Delete/merge, [id number] 01/08/2024 15:48:23 01/08/20 24 01/08/2024 urina lysis , dipst ick Bilirubin Negati ve Not Available In-Office Order Internal Use Only DO Not Attach Compendium DO Not Attach Compendium, Do Not Delete/merge, [id number] 01/08/2024 15:48:23 01/08/20 24 01/08/2024 urina lysis , dipst ick Glucose Negati ve Not Available In-Office Order Internal Use Only DO Not Attach Compendium DO Not Attach Compendium, Do Not Delete/merge, [id number] 01/08/2024 15:48:23 12/17/19 25 12/16/2024 pregn lavern test, urine HCG negati ve Not Available In-Office Order Internal Use Only DO Not Attach Compendium DO Not Attach Compendium, Do Not Delete/merge, [id number] 12/16/2024 16:01:40 Result Notes None recorded. Problems Name Problem SNOMED Code Status Onset Date Resolution Date Notes Provider Name and Address Organization Details Recorded Time 27094275 Completed 202009/21/2021 Becky Gibson RN null, [place] - [facility] 1 14:31:26 Bacterial vaginosis 529515036 Active Alma Patel MD Attn: Saul benítez,[address] [place], [address], [place] - [facility] 6 15:21:58 Notes:Rash on body Problem Notes None recorded. Procedures Surgical History Date Name Laterality Status Provider Name and Address Organization Details Recorded Time 01/08/2024 Date of Last Pap Smear completed Sierra Wu [place] - [facility] 01/13/2024 09:01:45 Imaging Results None recorded. Procedure Notes None recorded. Medical Equipment None Reported. Allergies No known drug allergies Medications Name Sig Start Date Stop Date Status Note LastModified by Organization Details LastModified Time acetaminoph en 325 mg tablet TAKE 2 TABLETS BY MOUTH EVERY 6 HOURS NEEDED FOR FEVER OR PAIN. DO NOT EXCEED 10 TABLETS IN 24 HOURS 12/16 completed Not Available Not Available Not Available clindamycin HCl 300 mg capsule TAKE [...] NEEDED FOR PAIN OR FEVER OR SWELLING 12/16 completed Not Available Not Available Not Available ofloxacin 0.3 % eye drops 12/03 [...] Not Available Not Available No t Available Depo-Mender Hand a 150 mg/mL intramuscul ar suspension Inject 1 mL every 3 months by intramusc ular route for 90 days. 10/16 completed Not Available Not Available Not Available trazodone 100 mg tablet TAKE 1 TABLET BY MOUTH EVERY DAY 12/03 completed Not Available Not Available Not Available triamcinolo ne acetonide 0.1 % topical ointment APPLY TOPICALLY TO THE AFFECTED AREA TWICE DAILY. DO NOT APPLY TO FACE USE HYDROCORT ISONE OINTMENT TO FACE ONLY active Not Available Not Available No t Available ranitidine 150 mg tablet 12/03 completed Not Available Not Available Not Available polymyxin B sulfate 10,000 unit-trimet hoprim 1 mg/mL eye drops 12/03 completed Not Available Not Available Not Available benztropine 1 mg tablet TAKE 1 TABLET BY MOUTH DAILY AT BEDTIME active Not Available Not Available No t Available fluoxetine 10 mg capsule TAKE ONE CAPSULE BY MOUTH EVERY MORNING (TAKE AT 800AM) 12/03 completed Not Available Not Available Not Available hydroxyzine HCl 25 mg tablet TAKE 1 TABLET BY MOUTH THREE TIMES DAILY NEEDED FOR ANXIETY active Not Available Not Available No t Available ibuprofen 600 mg tablet TAKE 1 [...] completed Not Available Not Available Not Available escitalopra m 10 mg tablet TAKE 1 TABLET BY MOUTH DAILY active Not Available Not Available No t Available moxifloxaci n 0.5 % eye drops 12/03 completed Not Available Not Available Not Available nitrofurant oin monohydrate /macrocryst als 100 mg capsule TAKE 1 CAPSULE BY MOUTH TWICE DAILY 01/07 completed Not Available Not Available Not Available ProAir HFA 90 mcg/actuati on aerosol inhaler 12/03 completed Not Available Not Available Not Available aripiprazol e 2 mg tablet TAKE 1 TABLET BY MOUTH DAILY AT BEDTIME active Not Available Not Available No t Available Plan B One-Step 1.5 mg tablet [...] Available Not Available Vitals Date Recorded Body height Body mass index (BMI) Body weight Systolic blood pressure Diastolic blood pressure Provider Name and Address Organization Details Last Updated DateTime 04/01/2022 157.48 cm 28.2 kg/m2 86762.22 g 116 mm[Hg] 72 mm[Hg] AARON Solares [place] - [facility] 2 11:17:27 Date Recorded Body height Body mass index (BMI) Body weight Body temperature Heart rate Respiratory rate Systolic blood pressure Diastolic blood pressure Provider Name and Address Organization Details Last Updated DateTime 2 157.48 cm 28.1 kg/m2 66928.4 3 g 98.3 [degF] 84 /min 20 /min 110 mm[Hg] 80 mm[Hg] Charo Junior [place] - [facility] 2 11:35:14 Date Recorded Body height Body mass index (BMI) Body weight Systolic blood pressure Diastolic blood pressure Provider Name and Address Organization Details Last Updated DateTime 01/03/2023 157.48 cm 28.3 kg/m2 85154.82 g 107 mm[Hg] 72 mm[Hg] Sierra Wu Nehemias [facility] 3 10:28:09 Date Recorded Body height Body mass index (BMI) Body weight Systolic blood pressure Diastolic blood pressure Provider Name and Address Organization Details Last Updated DateTime 01/08/2024 157.48 cm 27.8 kg/m2 36578.32 g 125 mm[Hg] 84 mm[Hg] Susan BenedictROSALINDA [facility] 4 15:42:31 Date Recorded Body height Body mass index (BMI) Body weight Systolic blood pressure Diastolic blood pressure Provider Name and Address Organization Details Last Updated DateTime 12/16/2024 157.48 cm 25.1 kg/m2 11787.3 g 124 mm[Hg] 82 mm[Hg] Sierra Wu Nehemias [facility] 5 15:39:52 Social History Question Answer Notes LastModified by Organizat ion Details LastModified Time Tobacco Smoking Status [facility] 17:08:29 In The 14 Days Before [...] Date Of Your Most Recent Tobacco Screening? 12/16/2024 Information not available 12/16/2024 What Is Your Current Pack Years? 10packyears Information not available 03/07/2021 At What Age Did You Start Smoking Tobacco? 15 Information not available 03/07/2021 How Much Tobacco Do You Smoke? 0.25 PPD Information not available 03/07/2021 Has Tobacco Cessation Counseling Been Provided? Yes Information not available 03/07/2021 On What Date Was Tobacco Cessation Counseling Provided? 12/16/2024 Information not available 12/16/2024 How Many Years Have You Smoked Tobacco? [...] Clots N Lung Disease N Acne N Eating Disorder N Breast Problem N Anemia N Anesthesia Complications N Headaches/Migraines [...] of Flow (days) 5 Current Control Method None Age at First Child 21 Sexually Active? Y Date of Last Pap Smear 01/08/2024 Sexual Problems? N LMP Approximate Desired Control Method Patch Obstetrics History GPAL:G 2 P 1 1 0 2 Type Value Full Term 1 Premature 1 Living 2 Total 2 Immunizations Vaccine Type Date Status Note Provider Espinoza arshad and Address Organization Details Recorded Time IPV 1 completed CARY Zuniga Attn: Accounting[address] [facility], [place], [address], [facility] - [facility] 11/20/2022 14:43:22 MMR 1 completed CARY Zuniga Attn: Accounting,[address], [place], [place], [address] [place] [address], [facility] - [facility] 11/20/2022 14:43:22 MMR 8 completed CARY Zuniga Attn: Accounting,[address], [place], [place], [address] [place] [address], [facility] - [facility] 11/20/2022 14:43:22 influenza, unspecified formulation 9 completed CARY Zuniga Attn: Accounting,[address], [place], [address] [place] [address], [facility] - [facility] 11/20/2022 14:43:22 Tdap 7 completed CARY Zuniga Attn: [address]ing[address] [facility], [place], [place], [address] [place] [address], [facility] - [facility] 11/20/2022 14:43:22 DTP 1 completed CARY Zuniga Attn: Accounting[address] , [place], [place], [address] [place] [address], [facility] - [facility] 11/20/2022 14:43:22 OPV 7 completed CARY Zuniga Attn: [address]ing,[address] [facility], [place], [place], [address] [place] [address], [facility] - [facility] 11/20/2022 14:43:22 OPV 6 completed CARY Zuniga Attn: Accounting,[address], [place], [place], [address] [place] [address], [facility] - [facility] 11/20/2022 14:43:22 OPV 6 completed CARY Zuniga Attn: Accounting,[address] [facility], [place], [place], [address] [place] [address], [facility] - [facility] 11/20/2022 14:43:22 OPV 8 completed CARY Zuniga Attn: Accounting,[address] [facility], [place], [address] [place] [address], [place] - [facility] 11/20/2022 14:43:22 DTP-Hib 7 completed CARY Zuniga Attn: [address] [place], [place], [address] [place] [address], [facility] - [facility] 11/20/2022 14:43:22 DTP-Hib 6 completed CARY Zuniga Attn: [address] [place], [place], [address] [place] [address], [facility] - [facility] 11/20/2022 14:43:22 DTP-Hib 6 completed CARY Zuniga Attn: [address] [place], [place], [address] [place] [address], [facility] - [facility] 11/20/2022 14:43:22 DTP-Hib 8 completed CARY Zuniga Attn: [address] [place], [place], [address] [place] [address], [facility] - [facility] 11/20/2022 14:43:22 influenza, split (incl. purified surface antigen) 2 completed CARY Zuniga Attn: [address] [place], [place], [address] [place] [address], [facility] - [facility] 11/20/2022 14:43:22 HPV, quadrivalent 1 completed CARY Zuniga Attn: [address] [place], [place], [address] [place] [address], [facility] - [facility] 11/20/2022 14:43:22 HPV, quadrivalent 9 completed CARY Zuniga Attn: [address] [place], [place], [address] [place] [address], [facility] - [facility] 11/20/2022 14:43:22 HPV, quadrivalent 2 completed CARY Zuniga Attn: [address] [place], [place], [address] [place] [address], [facility] - [facility] 11/20/2022 14:43:22 Hep B, adolescent or pediatric 7 completed CARY Zuniga Attn: [address] [place], [place], [address] [place] [address], [facility] - [facility] 11/20/2022 14:43:22 Hep B, adolescent or pediatric 6 completed CARY Zuniga Attn: [address] [place], [place], [address] [place] [address], [facility] - [facility] 11/20/2022 14:43:22 Hep B, adolescent or pediatric 6 completed CARY Zuniga Attn: [address] [place], [place], [address] [place] [address], [facility] - [facility] 11/20/2022 14:43:22 Hep A, adult 9 completed CARY Zuniga Attn: [address] [place], [place], [address] [place] [address], [facility] - [facility] 11/20/2022 14:43:22 Hep A, ped/adol, 2 dose 7 completed CARY Zuniga Attn: [address] [place], [place], [address] [place] [address], [facility] - [facility] 11/20/2022 14:43:22 Hep A, ped/adol, 2 dose 8 completed CARY Zuniga Attn: [address]ing,[address] [place], [place], [address] [place] [address], [facility] - [facility] 11/20/2022 14:43:22 meningococcal MCV4P 8 completed CARY Zuniga Attn: [address] [place], [place], [address] [place] [address], [facility] - [facility] 11/20/2022 14:43:22 meningococcal MCV4P 2 completed CARY Zuniga Attn: [address] [place], [address], [place] - [facility] 11/20/2022 14:43:22 Tdap 7 completed Not Available [facility] 10/23/2019 02:42:35 Tdap 1 completed Sierra Wu, Nehemias [facility], [facility] 08/06/2021 14:32:05 Past Encounters Encounter ID Performer Location Encounter Start Date Encounter Closed Date Diagnosis/Indication Diagnosis SNOMED-CT Code Diagnosis ICD10 Code Diagnosis Note [id number] MD Michael Argueta ([place] [address]) [address] [facility] [place] [address] 06/03/2016 16:54:13 06/03/2016 22:37:58 test positive [id number] Z32.01 [id number] ROSALINDA Marie ([place] [address]) [address] [facility] [place] [address] 06/28/2016 14:55:58 06/29/2016 22:39:31 Normal [id number] Z34.82 [id number] MD Michael Monahan ([place] [place] [address]) [address] [facility] [place] [address] 07/25/2016 16:48:49 08/08/2016 11:35:17 Normal [id number] Z34.90 [id number] MD Michael Monahan ([place] [address]) 2 [facility] [place] [address] 08/15/2016 16:53:15 08/19/2016 09:55:07 Normal 93456601 Z34.90 [id number] MD [place] [address]) 2 [facility] [place] [address] 09/12/2016 10:51:54 09/12/2016 12:11:05 Normal 92463756 Z34.90 [id number] MD Michael Monahan ([place] [address]) 2 [facility] [place] [address] 10/14/2016 16:42:10 10/15/2016 09:32:26 Normal 28043680 Z34.90 Uterine si ze for dates discrepancy 147613881 O26.723 [id number] MD Michael Monahan ([place] [address]) [address] [facility] [place] [address] 10/24/2016 09:47:29 10/24/2016 14:53:47 Administration of diphtheria, pertussis, and tetanus vaccine 557146394 Z23 Normal 9795673 2 Z34.90 [id number] [facility] 205) [address] [facility] [place] [address] 11/19/2016 15:44:24 11/20/2016 14:33:34 depression 11076427 O99.818 [id number] MD [facility] ([place] [address]) 2 [facility] [place] [address] 02/21/2017 10:24:06 02/21/2017 14:24:12 care 067052303 Z39.2 [id number] MD [facility] ([place] [address]) [address] [facility] [place] [address] 07/15/2017 12:03:09 07/16/2017 15:48:16 Body mass index 20-24 - normal 494772845 Z68.20 Cervicovag inal cytology: Low grade squamous intraepithelial lesion 254047690 R87.597 [id number] MD Michael Monahan 14 OB 4 [facility] [place] [address] 02/23/2018 15:43:23 02/23/2018 17:24:18 Body mass index 20-24 - normal 651569330 Z68.21 Gynecologi c examination 89783505 Z01.419 Dermatophy tosis of the body 106772672 B35.4 [id number] MD Michael Monahan 14 OB 4 [facility] [place] [address] 06/15/2019 15:39:01 06/17/2019 09:05:06 Gynecologic examination 34962309 Z01.336 [id number] MD Michael Monahan 14 OB 4 [facility] [place] [address] 03/07/2021 12:13:52 03/08/2021 16:07:46 Normal 49489920 Z34.90 [id number] MD Michael Monahan 14 OB 4 [facility] [place] [address] 04/05/2021 15:31:53 04/06/2021 19:15:10 Normal 15649752 Z34.90 Past pregn lavern history of premature delivery 970623688 Z87.51 [id number] FRANCIS Lobo 14 OB 4 [facility] [place] [address] 04/11/2021 12:13:17 04/16/2021 09:38:32 [id number] MD Michael Monahan 14 OB 4 [facility] [place] [address] 04/30/2021 15:09:13 05/02/2021 11:33:55 Normal 86822391 Z34.90 [id number] MD Michael Monahan 14 OB 4 [facility] [place] [address] 05/14/2021 15:02:13 05/15/2021 08:37:34 Normal 99566169 Z34.90 Infection by Trichomonas 53584053 A59.9 Past pregn lavern history of premature delivery 139523774 Z87.51 [id number] MD Michael Monahan 14 OB 4 [facility] [place] [address] 06/04/2021 15:02:56 06/05/2021 14:45:06 Normal 73824537 Z34.90 Past pregn lavern history of premature delivery 502757640 Z87.51 [id number] MD Michael Monahan 14 OB 4 [facility] [place] [address] 07/02/2021 12:13:13 07/04/2021 13:23:48 Normal 69940622 Z34.90 Infection by Trichomonas 70042090 A59.9 Past pregn lavern history of premature delivery 688192687 Z87.51 [id number] MD Michael Monahan 14 OB 4 [facility] [place] [address] 07/23/2021 14:27:51 07/24/2021 06:51:52 Normal 03376269 Z34.90 Past pregn lavern history of premature delivery 738478683 Z87.51 Gestationa l diabetes mellitus 26881608 O24.065 [id number] MD Michael Monahan 14 OB 4 [facility] [place] [address] 08/06/2021 14:16:25 08/07/2021 06:51:21 Normal 18466942 Z34.90 Administra tion of diphtheria, pertussis, and tetanus vaccine 217309581 Z23 Past pregn lavern history of premature delivery 064181345 Z87.51 [id number] MD Michael Monahan 14 OB 4 [facility] [place] [address] 08/20/2021 14:13:34 08/21/2021 06:16:04 Normal 01454804 Z34.90 Infection by Trichomonas 68779958 A59.9 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 81313601 A60.9 [id number] MD Michael Monahan 14 OB 4 [facility] [place] [address] 08/27/2021 14:50:16 08/28/2021 06:38:33 Normal 87003614 Z34.90 [id number] MD Michael Monahan 14 OB 4 [facility] [place] [address] 09/03/2021 15:45:01 09/04/2021 09:38:05 Normal 75656921 Z34.90 [id number] MD Michael Monahan 14 OB 4 [facility] [place] [address] 09/21/2021 14:23:38 09/23/2021 15:55:30 depression 97296649 O99.345 Contracept ion care management 725182793 Z30.9 [id number] MD Michael Monahan [address] [place] [address] [place] [address] 10/16/2021 14:10:14 10/17/2021 06:19:53 care 091405205 Z39.2 Contracept ion care management 055076205 Z30.9 [id number] MD Michael Monahan 14 OB 4 [facility] [place] [address] 12/03/2021 16:26:04 12/04/2021 06:33:31 Infection by Trichomonas 34130525 A59.9 [id number] MD Michael Monahan 14 OB 4 [facility] [place] [address] 04/01/2022 11:04:35 04/02/2022 08:02:14 Vaginal discharge 035304153 N89.8 Smoker 74927827 F17.200 Overweight 135109837 E66 .3 [id number] MD Michael Jeffries [address] [place] [address] [place] [address] 05/29/2022 11:20:58 06/03/2022 09:21:12 Venereal disease screening 179534439 Z11.3 -Patient deferred exam, will treat empiricall y for fungal infection and wait on labs.-She denies discharge or urinary symptoms.s he recent completed abx w/metronid azole. [id number] MD Michael Monahan 14 OB 4 [facility] [place] [address] 01/03/2023 10:08:10 01/04/2023 12:17:11 Overweight 765617564 E66.3 Gynecologi c examination 05989281 Z01.419 Contracept ion care management 894359456 Z30.9 [id number] MD Michael Monahan 14 OB 4 [facility] [place] [address] 01/08/2024 15:31:54 01/15/2024 10:21:39 Screening for malignant neoplasm of cervix 678344870 Z12.4 At [facility] risk of urinary tract infection 863611343 Z91.89 Gynecologi c examination 53191650 Z01.419 Contracept ion care management 200043243 Z30.9 [id number] MD Michael Monahan 14 OB 4 [facility] [place] [address] 12/16/2024 15:13:02 12/20/2024 14:15:43 Depression screening 209072623 Z13.31 Contracept ion care management 019996394 Z30.9 Health Concerns Section Related Observation LastModified by Organization Detai ls LastModified Time None Recorded Concern Status LastModified by Organization Details LastModified Time None Recorded Advance Directives Directive None Recorded Payers Encounter Date Sequence Insurance Name Policy Number Policy [place] Covered Member ID [place] Member ID Guarantor Name 04/01/2022 1 [facility] (MEDICAID HMO) [id number] Debora D Ramirez [id number] Debora D Ramirez 05/29/2022 1 [facility] (MEDICAID HMO) [id number] Debora D Ramirez [id number] Debora D Ramirez 01/03/2023 1 [facility] (MEDICAID HMO) [id number] Debora D Ramirez [id number] Debora D Ramirez 01/08/2024 1 [facility] (MEDICAID HMO) [id number] Debora D Ramirez [id number] Debora D Ramirez 12/16/2024 1 [facility] (MEDICAID HMO) [id number] Debora D Ramirez [id number] Debora Tavo Ramirez Notes Date Note Type Note Provider Name and Address Organization Details Recorded Time 04/01/2022 text/html having unusual discharge( has a hx of both trich and GC within last year) sporadic candice-umbilical pain and loose stools suggest a GI issue as well Héctor Negrete MD Attn: [address] [place], [address], [facility] [place] 04/01/2022 11:25:39 05/29/2022 text/html Patient is a 27 y/o female arrived to clinic with complaints of vaginal itching. there is no associated discharge or urinary symptoms. Completed tx with metronidazole about a month ago for + trichomonas. There is no associated rash, erythema denies burning on urination or increased freq. Beryl Holder MD Attn: [address] [place], [address], [facility] [place] 06/02/2022 22:34:58 01/03/2023 text/html Annual GYNReport ed bypatient.Menstrual cycle:Normal menses Urinary symptoms:No hematuria; No incontinence Vulva:No genital lesion Vagina:Normal vaginal discharge Breast:No breast pain; No breast lump; No nipple discharge Current Contraception:Trans dermal patch Sexual complaints:No sexual complaints; No pain during intercourse; Normal libido Menopausal Symptoms:No menopausal symptoms; Normal vaginal lubrication Psychological symptoms:No depression; No anxiety; No PMDD Héctor Negrete MD Attn: [address] [place], [address], [facility] 01/03/2023 10:53:22 01/08/2024 text/html Annual GYNReport ed bypatient.Menstrual cycle:Normal menses Urinary symptoms:No hematuria; No incontinence Vulva:No genital lesion Vagina:Normal vaginal discharge Breast:No breast pain; No breast lump; No nipple discharge Current Contraception:Trans dermal patch Sexual complaints:No sexual complaints; No pain during intercourse; Normal libido Menopausal Symptoms:No menopausal symptoms; Normal vaginal lubrication Psychological symptoms:No depression; No anxiety; No PMDD Héctor Negrete MD Attn: [address] [place], [address], [facility] [place] 01/08/2024 16:06:35 12/16/2024 text/html Difficult recent hx with an inpatient psych admission followed by rehab. Interested in control patches.didnt like depo in past Héctor Negrete MD Attn: [address] [place], [address], [facility] [place] 12/16/2024 15:54:20 OBGyn Episode Ob Episode Information Episode Created Date Number of Fetuses Patient Bloodtype Patient rh Status Prepregnancy Weight lbs Domestic Partner Domestic Partner Phone Father Name Social Work Program Coordinator Status 03/07/20 21 1 B CLOSED Fetus Data First Name Last Name Admitted to NICU Weight (g) Sex Living Outcome Pediatric Complications Fetus ID Race Codes Race Delivery Type Ike Martinez ider 3061.74 6 M true Full Term [id number] 2106-3 White Vaginal Bhaskar Calculation Initial Bhaskar [...] Latest Days Gestation 0 09/17/20 21 0 Pre-abby Flowsheet Flowsheet Date 03/07/2021 Mclaughlin Score Blood Edema Fundus Height Fundus Units Glucose Ketones Leukocytes Nitrite Labor Signs Protein Cervic Dilation Cervic Effacement Cervic Station none 12 wks 0cm 0% -4 Type Weight in lbs Pre/Post Dialysis Refused With clothes 154.967805746731 BP Diastolic BP Location Tested BP Systolic [...] in lbs Pre/Post Dialysis Refused With clothes 157.523250787842 BP Diastolic BP Location Tested BP Systolic BP Type 72 128 sitting Fetus Heart Rate Present A 156 Present Fetus Movement Comments Having a stressful day : ( Y ounger sister at [place], 28 weeks, no care, having baby..)will send [...] in lbs Pre/Post Dialysis Refused With clothes 156.825351951195 BP Diastolic BP Location Tested BP Systolic [...] in lbs Pre/Post Dialysis Refused With clothes 160.424476611619 BP Diastolic BP Location Tested BP Systolic [...] in lbs Pre/Post Dialysis Refused With clothes 161.189377481283 BP Diastolic BP Location Tested BP Systolic [...] in lbs Pre/Post Dialysis Refused With clothes 167.169877328526 BP Diastolic BP Location Tested BP Systolic [...] in lbs Pre/Post Dialysis Refused With clothes 168.065215115805 BP Diastolic BP Location Tested BP Systolic [...] in lbs Pre/Post Dialysis Refused With clothes 169.389000720587 BP Diastolic BP Location Tested BP Systolic [...] in lbs Pre/Post Dialysis Refused With clothes 172.552761018078 BP Diastolic BP Location Tested BP Systolic [...] in lbs Pre/Post Dialysis Refused With clothes 171.863736890842 BP Diastolic BP Location Tested BP Systolic [...] in lbs Pre/Post Dialysis Refused With clothes 174.334550853039 BP Diastolic BP Location Tested BP Systolic [...] Weight in lbs Pre/Post Dialysis Refused Weight 151.267829748432 BP Diastolic BP Location Tested BP Systolic BP Type 74 116 Fetus Heart Rate Present Fetus Movement Comments Menstrual History Last Menstrual Date Menses Monthly On Bcp Conception Prior Menses Frequency Hcg Plus Date Menarche Onset Age 0312/11/2020 true Genetic Screening And Infection History Question Response Note Patient's Age Will Be 35 Years Or Older At Estim ated Date of Delivery false Thalassemia (Citizen Of [place], Arabic, Mediterranean, Or Background): MCV < 80 false Neural Tube Defect (Meningomyelocele, Spina Bifi da, Or Anencephaly) false Congenital Heart Defect false Down Syndrome false Gio-Sachs (eg, Amish, Cajun, Chinese-Latvian) f alse Mary Jane Disease false Sickle Cell Disease Or Trait () false Hemophilia Or Other Blood Disorders false Muscular Dystrophy false Cystic Fibrosis false [place]'s Chorea false Mental Retardation/Autism false If Yes, [...] Domestic Partner Domestic Partner Phone Father Name Social Work Program Coordinator Status 06/24/20 16 1 B Positive Del. @ [facility] ED Fetus Data First Name Last Name Admitted to NICU Weight (g) Sex Living Outcome Pediatric Complications Fetus ID Race Codes Race Delivery Type Bola Solorio on false 2296.30 95 M true Prematur e [id number] [id number] White Vaginal Bhaskar Calculation Initial Bhaskar [...] Date Ultra Sound Latest Days Gestation 0 [email or web address] 10/28/2016 017 0 Pre- Flowsheet Flowsheet Date 06/28/2016 Mclaughlin Score Blood Edema Fundus Height Fundus Units Glucose Ketones Leukocytes Nitrite Labor Signs Protein Cervic Dilation Cervic Effacement Cervic Station Type Weight in lbs Pre/Post Dialysis Refused 115.212567531510 BP Diastolic BP Location Tested BP Systolic [...] Type Weight in lbs Pre/Post Dialysis Refused 123.380583095961 BP Diastolic BP Location Tested BP Systolic [...] Type Weight in lbs Pre/Post Dialysis Refused 129.350139323375 BP Diastolic BP Location Tested BP Systolic [...] Type Weight in lbs Pre/Post Dialysis Refused 137.562971538182 BP Diastolic BP Location Tested BP Systolic [...] Type Weight in lbs Pre/Post Dialysis Refused 145.0617487975 BP Diastolic BP Location Tested BP Systolic [...] Type Weight in lbs Pre/Post Dialysis Refused 145.0040055232 BP Diastolic BP Location Tested BP Systolic [...] Post Complications Tubal Sterilization Discharge Date Comments [facility] GMelquiades Negrete MD 10/29/2016 Discharge Information Feeding Method Contraceptive Method Maternal HG B and HCT Levels Breast
--- OUTSIDE RECORDS SUMMARY | 2025-01-16 11:20 | XMS_ITS | Referral Summary ---
Author Organization [facility] al Address [address] [place] [address] Care Team Providers Care Pediatric Physical Therapist Name Role Phone Ruth Tobar NP Primary Care Provider [phone] Encounters Date Type Department Care Team Description 12/23/2024 2:00 PM CDT Office Visit [facility] [address] 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) 11/16/2024 12:48 PM DRY HOUSE TENDER - 11/16/2024 11:59 PM DRY HOUSE TENDER Hospital Encounter [facility] BILL[facility] Emergency, Room R Discharge Disposition: Discharge to home or self care 11/15/2024 5:24 PM DRY HOUSE TENDER - 11/16/2024 3:38 AM DRY HOUSE TENDER Emergency [facility] Emergency Department [address] [place] [address] Khris Villalobos MD Ong, MD Master Gaxiola ([facility]) (Primary Dx) Discharge Disposition: Discharge to psych hospital or psych unit 11/14/2024 9:41 AM DRY HOUSE TENDER - 11/14/2024 11:59 PM DRY HOUSE TENDER Hospital Encounter [facility] Emergency, Room R Discharge Disposition: Discharge to home or self care 11/13/2024 6:13 PM DRY HOUSE TENDER - 11/14/2024 6:41 AM DRY HOUSE TENDER Emergency [facility] Emergency Department [address] [place] [address] Norman Garvey MD Wala, Ronny Leblanc MD UTI (urinary tract infection) with pyuria (Primary Dx); Hypokalemia; Paranoia (HCC) Discharge Disposition: Discharge to home or self care 11/13/2024 5:58 PM DRY HOUSE TENDER - 11/13/2024 11:59 PM DRY HOUSE TENDER Hospital Encounter [facility] Emergency, Room [...] Lancet 33 gauge misc 07/13/2021 Active vit 58-xuht-[id number]-d vazquez 29 mg iron-1 mg -250 mg [...] Active Active Problems No known active problems Immunizations [...] on file Legal Sex Female 2:26 PM DRY HOUSE TENDER Gender Identity Not on file Sexual Orientation Not on file Last Filed Vital Signs Vital Sign Reading Time Taken Comments Blood Pressure 141/99 11/15/2024 6:09 PM DRY HOUSE TENDER Pulse 86 11/15/2024 6:09 PM DRY HOUSE TENDER Temperature 36.7 C (98 F) 12/23/2024 2:15 PM CDT Respiratory Rate 19 11/15/2024 6:09 PM DRY HOUSE TENDER Oxygen Saturation 98% 11/15/2024 6:09 PM DRY HOUSE TENDER Inhaled Oxygen Concentration - - Weight 64.4 kg (142 lb) 12/23/2024 2:15 PM CDT Height 160 cm (5' 3 ) 12/23/2024 2:15 PM CDT Body Mass Index 25.15 12/23/2024 2:15 PM CDT Plan of Treatment Not on file Procedures Procedure Name Priority Date/Time Associated Diagnosis Comments ETHANOL Add-On 11/15/2024 10:24 PM DRY HOUSE TENDER HCG, URINE, QUALITATIVE Timed 11/15/2024 5:34 PM DRY HOUSE TENDER DRUGS OF ABUSE SCREEN, URINE WITHOUT CONFIRMATION STAT 11/15/2024 5:34 PM DRY HOUSE TENDER URINALYSIS AND REFLEX TO MICROSCOPIC AND CULTURE STAT 11/15/2024 5:34 PM DRY HOUSE TENDER ECG 12-LEAD STAT 11/15/2024 4:48 PM DRY HOUSE TENDER EGFR STAT 11/15/2024 3:01 PM DRY HOUSE TENDER DIFFERENTIAL AUTO STAT 11/15/2024 3:0 1 PM DRY HOUSE TENDER CBC WITH AUTO DIFFERENTIAL STAT 11/15/2024 3:01 PM DRY HOUSE TENDER COMPREHENSIVE METABOLIC PANEL STAT 11/15/2024 3:01 PM DRY HOUSE TENDER INFLUENZA A/B, RSV, AND COVID-19 PCR STAT 11/15/2024 3:01 PM DRY HOUSE TENDER EGFR STAT 11/14/2024 2:29 AM DRY HOUSE TENDER BASIC METABOLIC PANEL STAT 11/14/2024 2:[address] CHEST ABDOMEN PELVIS WO CONTRAST ED 11/14/2024 12:54 AM DRY HOUSE TENDER POTASSIUM LEVEL STAT 11/13/2024 9:[address] HEAD WO CONTRAST ED 11/13/2024 6 :58 PM DRY HOUSE TENDER HCG, URINE, QUALITATIVE STAT 11/13/2024 6:37 PM DRY HOUSE TENDER EGFR STAT 11/13/2024 6:37 PM DRY HOUSE TENDER MAGNESIUM Routine 11/13/2024 6:37 PM DRY HOUSE TENDER RENAL FUNCTION PANEL STAT 11/13/2024 6:37 PM DRY HOUSE TENDER EGFR STAT 11/13/2024 6:37 PM DRY HOUSE TENDER URINALYSIS, MICROSCOPIC ONLY Routine 11/13/2024 6:37 PM DRY HOUSE TENDER DIFFERENTIAL AUTO STAT 11/13/2024 6:3 7 PM DRY HOUSE TENDER ERYTHROCYTE SEDIMENTATION RATE STAT 11/13/2024 6:37 PM DRY HOUSE TENDER DRUGS OF ABUSE SCREEN, URINE WITHOUT CONFIRMATION STAT 11/13/2024 6:37 PM DRY HOUSE TENDER THYROID FUNCTION CASCADE Add-On 11/13/2024 6:37 PM DRY HOUSE TENDER COMPREHENSIVE METABOLIC PANEL STAT 11/13/2024 6:37 PM DRY HOUSE TENDER CBC WITH AUTO DIFFERENTIAL STAT 11/13/2024 6:37 PM DRY HOUSE TENDER URINE CULTURE Routine 11/13/2024 6:37 PM DRY HOUSE TENDER URINALYSIS AND REFLEX TO MICROSCOPIC AND CULTURE Routine 11/13/2024 6:37 PM DRY HOUSE TENDER from Last 3 Months Results * Ethanol (11/15/2024 10:24 PM DRY HOUSE TENDER) Ethanol <10 <=10 mg/dL Comment: Interpretive Data Legal limit of intoxication > or = 80 mg/dL Levels > or = 400 mg/dL are potentially TOXIC. Current interpretive data was last revised on 2018. Blood 11/15/2024 10:2 4 PM DRY HOUSE TENDER 11/15/2024 10:26 PM DRY HOUSE TENDER us Debora Garcia DO LAB BLOOD ORDERABLES Final Result [facility] ([place]) [address] [facility] [place] [address] * Urinalysis reflex to microscopic and culture Urine (11/15/2024 5:34 PM DRY HOUSE TENDER) Color, ur Straw Yellow Clarity, ur Clear Clear [facility] ([place]) Specific gravity, ur 1.006 1.003 - 1.030 [facility] ([place]) pH, urine 7.5 [facility] ([place]) Comment: Interpretive Data U rine pH is affected by diet, medications, systemic acid-base disturbances, and renal tubular function. pH may affect urinary stone formation. For example, urine pH below 6.0 may help reduce the tendency for calcium phosphate stones and pH greater than 6.0 may reduce the tendency for uric acid stone formation. Source: [facility] soup[facility]me Current Interpretive Data was last revised on [...] [facility] ([place]) Urine 11/15/2024 5:34 PM DRY HOUSE TENDER 11/15/2024 5:39 PM DRY HOUSE TENDER Khris Villalobos MD LAB MICROBIOLOGY - GENERAL ORD ERABLES Final Result [facility] ([place]) [address] [facility] [place] [address] * (ABNORMAL) Drugs of Abuse Screen, Urine without Confirmation (11/15/2024 5:34 PM DRY HOUSE TENDER) Amphetamine, ur Not Detected CutOff 500ng/mL Comment: [...] ur Not Detected CutOff 25 ng/mL [facility] ([place]) Comment: Interpretive Data - Phencyclidine: Samples containing greater than 25 ng/mL phencyclidine or other cross-reacting compounds are reported as positive. False positive and false negative results are possible. Confirmatory testing required for definitive results. Current Interpretive Data was last reviewed 2023. Urine Creatinine 40 mg/dL SABA MCFADDEN [facility] ([place]) Comment: Interpretive Data Urine Creatinine: < 10 mg/dL is extremely dilute = or > 10 but < 20 mg/dL is dilute = or > 20 mg/dL is normal Current Interpretive Data was last revised on 2017. Urine 11/15/2024 5:34 PM DRY HOUSE TENDER 11/15/2024 5:39 PM DRY HOUSE TENDER Narrative [facility] - 11/15/2024 6:07 PM DRY HOUSE TENDER Drug of Abuse screening is performed by immunoassay for medical purposes only. This is not to be used for Pain Management purposes. Khris Villalobos MD LAB URINE ORDERABLES Final Res ult [facility] ([place]) [address] [facility] [employer] [address] * hCG, urine, qualitative (11/15/2024 5:34 PM DRY HOUSE TENDER) HCG, ur Negative Negative Urine 11/15/2024 5:34 PM DRY HOUSE TENDER 11/15/2024 7:04 PM DRY HOUSE TENDER Debora Garcia DO LAB URINE ORDERABLES Final Result [facility] ([place]) 1 [facility] [place] [address] * ECG 12 lead (11/15/2024 4:48 PM DRY HOUSE TENDER) 11/15/2024 4:48 PM DRY HOUSE TENDER Narrative [facility] - 11/16/2024 6:38 AM DRY HOUSE TENDER Vent Rate: 80 bpm RR Interval: 747 msec AL Interval: 187 msec QRS Duration: 82 msec QT Interval: 355 msec QTC Interval: 391 msec P-R-T [place]: 70 - 29 - 57 degrees IMPRESSION: SINUS RHYTHM NORMAL ECG Electronically Signed By: Nathaniel Carranza MD Khris Villalobos MD ECG ORDERABLES Final Result [facility] * Influenza A/B, RSV, and COVID-19 PCR Nasopharyngeal (11/15/2024 3:01 PM DRY HOUSE TENDER) COVID-19 RNA Negative Negative Influenza A RNA Negative Negative [facility] ([place]) Influenza B RNA Negative Negative [facility] ([place]) RSV RNA Negative Negative [facility] ([place]) Comment: Interpretive data: Testing performed by [facility]. This test is performed using the [employer] Xpert Xpress CoV-2/Flu/RSV plus assay. This is a multiplex, real- time reverse transcriptase PCR assay intended for the qualitative detection of nucleic acid from SARS-CoV-2, influenza A, influenza B, and respiratory syncytial virus. This assay has been cleared by the [place] Food and Drug administration. The performance characteristics have been verified by the [facility]. Results must be considered in the clinical context, and a negative result does not rule out infection. Interpretive Data last revised 2023 Nasopharyngeal 11/15/2024 3: 01 PM DRY HOUSE TENDER 11/15/2024 3:03 PM DRY HOUSE TENDER Narrative [facility] ([place]) - 11/15/2024 3:42 PM DRY HOUSE TENDER Is the Patient experiencing symptoms consistent with COVID?->Yes Khris Villalobos MD LAB MICROBIOLOGY - GENERAL ORD ERABLES Final Result [facility] ([place]) [address] [facility] [place] [address] * eGFR (11/15/2024 3:01 PM DRY HOUSE TENDER) eGFR >90 >=60 mL/min/1. 73 m2 Comment: [...] last reviewed 2021. Blood 11/15/2024 3:01 PM DRY HOUSE TENDER 11/15/2024 3:03 PM DRY HOUSE TENDER us Khris Villalobos MD LAB BLOOD ORDERABLES Final Res ult [facility] ([place]) [address] [facility] [place] [address] * Differential, auto (11/15/2024 3:01 PM DRY HOUSE TENDER) Neutrophil abs 5.5 1.5 - 6.5 K/cumm [...] revised on 2018. Blood 11/15/2024 3:01 PM DRY HOUSE TENDER 11/15/2024 3:03 PM DRY HOUSE TENDER us Khris Villalobos MD LAB BLOOD ORDERABLES Final Res ult [facility] ([place]) [address] [facility] [place] [address] * (ABNORMAL) CBC with auto differential (11/15/2024 3:01 PM DRY HOUSE TENDER) WBC 8.2 3.8 - 9.9 K/cumm Hgb 13.9 11.9 - 15.5 g/dL [facility] ([place]) Hct 40.8 35.6 - 45.5 % [facility] ([place]) Plt 368 150 - 400 K/cumm [facility] ([place]) MPV 8.6(L) 9.1 - 12.3 fL [...] NRBC abs 0.00 0.00 - 0.01 K/cumm [facility] ([facility] Blood 11/15/2024 3:01 PM DRY HOUSE TENDER 11/15/2024 3:03 PM DRY HOUSE TENDER us Khris Villalobos MD LAB BLOOD ORDERABLES Final Res ult [facility] ([place]) [address] [facility] [place] [address] * (ABNORMAL) Comprehensive metabolic panel (11/15/2024 3:01 PM DRY HOUSE TENDER) Sodium 136 135 - 145 mmol/L Potassium, pl 3.1(L) 3.3 - 4.9 mmol/L [facility] Chloride 98 97 - 110 mmol/L [facility] ([place]) CO2 27 22 - 32 mmol/L [facility] ([place]) Anion gap 11 2 - 15 mmol/L [facility] ([place]) BUN 6 6 - 25 mg/dL [facility] ([place] Creatinine 0.56(L) 0.60 - 1.10 [...] [facility] ([place]) Blood 11/15/2024 3:01 PM DRY HOUSE TENDER 11/15/2024 3:03 PM DRY HOUSE TENDER us Khris Villalobos MD LAB BLOOD ORDERABLES Final Res ult [facility] ([place]) [address] [facility] [place] [address] * eGFR (11/14/2024 2:29 AM DRY HOUSE TENDER) eGFR >90 >=60 mL/min/1. 73 m2 Comment: [...] last reviewed 2021. Blood 11/14/2024 2:29 AM DRY HOUSE TENDER 11/14/2024 2:32 AM DRY HOUSE TENDER us Ronny Robledo MD LAB BLOOD ORDERABLES Final Re sult Performing Organization Address [facility] Co de Phone Number [facility] ([place]) [address] [facility] [place] [address] * Basic metabolic panel (11/14/2024 2:29 AM DRY HOUSE TENDER) Sodium 141 135 - 145 mmol/L Potassium, pl 3.3 3.3 - 4.9 mmol/L [facility] ([place]) Chloride 99 97 - 110 mmol/L [facility] ([place]) CO2 30 22 - 32 mmol/L [facility] ([place]) Anion gap 11 2 - 15 mmol/L [facility] ([place]) BUN 9 6 - 25 mg/dL [facility] ([place]) Creatinine 0.74 0.60 - 1.10 [...] 2022. Calcium 9.3 8.5 - 10.3 mg/dL [facility] ([place]) Blood 11/14/2024 2:29 AM DRY HOUSE TENDER 11/14/2024 2:32 AM DRY HOUSE TENDER us Ronny Robledo MD LAB BLOOD ORDERABLES Final Re sult Performing Organization Address [facility] Co de Phone Number [facility] [place]EL [address] [facility] [place] [address] * CT Chest Abdomen Pelvis WO Contrast (11/14/2024 12:54 AM DRY HOUSE TENDER) Anatomical Region Laterality Modality Body N/A Computed Tomogra phy 11/14/2024 1:00 AM DRY HOUSE TENDER Narrative 11/14/2024 1:13 AM DRY HOUSE TENDER EXAM DESCRIPTION: CT CHEST ABDOMEN PELVIS WO [...] Barbara Burkett M.D. SN: SN Report ID: [id number] Reading Location: [id number] Procedure Note Barbara Burkett MD - 11/14/2024 [...] by Barbara Burkett M.D. SN: Report ID: [id number] Reading Location: [place] [address] Norman Garvey MD IM CT PROCEDURES Final Res ult * (ABNORMAL) Potassium (11/13/2024 9:49 PM DRY HOUSE TENDER) [facility] Signature Potassium, pl 2.4(C) 3.3 - 4.9 mmol/L Comment:Critical Result call ed by [email or web address] at 2024-11-13 22:56:05. Result Read Back by Sarah Brito ED Blood 11/13/2024 9:49 PM DRY HOUSE TENDER 11/13/2024 9:51 PM DRY HOUSE TENDER us Norman Garvey MD LAB BLOOD ORDERABLES Final Result [facility] [place]) [address] [facility] [place] [address] * CT Head WO Contrast (11/13/2024 6:58 PM DRY HOUSE TENDER) Anatomical Region Laterality Modality Head and Neck N/A Computed Tomogra phy 11/13/2024 8:03 PM DRY HOUSE TENDER Narrative 11/13/2024 8:14 PM DRY HOUSE TENDER EXAM DESCRIPTION: CT HEAD WO CONTRAST REASON [...] Jeyson Kauffman M.D. KT: DOUG Report ID: [id number] Reading Location: [id number] Procedure Note Jeyson Kauffman MD - 11/13/2024 [...] Jeyson Kauffman M.D. KT: KT Report ID: [id number] Reading Location: [id number] Norman Garvey MD IMG CT PROCEDURES Final Res ult * eGFR (11/13/2024 6:37 PM DRY HOUSE TENDER) eGFR >90 >=60 mL/min/1. 73 m2 Comment: [...] of Race in Diagnosing Kidney Disease, JASN 202). The CKD-EPI equation should not be used for patients with unstable renal function and has not been validated in children and those over 70. Current interpretive data was last reviewed 2021. Blood 11/13/2024 6:37 PM DRY HOUSE TENDER 11/13/2024 9:40 PM DRY HOUSE TENDER Norman Garvey MD LAB BLOOD ORDERABLES Final Result [facility] ([place]) [address] [facility] [place] [address] * eGFR (11/13/2024 6:37 PM DRY HOUSE TENDER) Pathologist [facility] eGFR >90 >=60 mL/min/1. 73 m2 Comment: [...] last reviewed 2021. Blood 11/13/2024 6:37 PM DRY HOUSE TENDER 11/13/2024 7:06 PM DRY HOUSE TENDER Norman Garvey MD LAB BLOOD ORDERABLES Final Result [facility] ([place]) [address] [facility] [place] [address] * (ABNORMAL) Differential, auto (11/13/2024 6:37 PM DRY HOUSE TENDER) Neutrophil abs 11.0(H) 1.5 - 6.5 K/cumm [...] revised on 2018. Blood 11/13/2024 6:37 PM DRY HOUSE TENDER 11/13/2024 7:06 PM DRY HOUSE TENDER us Norman Garvey MD LAB BLOOD ORDERABLES Final Result [facility] ([place]) [address] [facility] [place] [address] * Thyroid Function [place] (11/13/2024 6:37 PM DRY HOUSE TENDER) TSH 0.53 0.30 - 4.20 mcIUnit/mL Blood 11/13/2024 6:37 PM DRY HOUSE TENDER 11/13/2024 7:06 PM DRY HOUSE TENDER us Norman Garvey MD LAB BLOOD ORDERABLES Final Result [facility] ([place]) [address] [facility] [place] [address] * (ABNORMAL) Urinalysis reflex to microscopic and culture Urine, clean voided (11/13/2024 6:37 PM DRY HOUSE TENDER) Color, ur Yellow Yellow Clarity, ur Turbid(A) [...] for uric acid stone formation. Source: [facility] Current Interpretive Data was last revised on [...] (MICHAEL) Urine, clean voided 11/13/2024 6:37 PM DRY HOUSE TENDER 11/13/2024 7:05 PM DRY HOUSE TENDER Norman Garvey MD LAB MICROBIOLOGY - GENERAL ORDERABLES Final Result [facility] ([place]) [address] [facility] [place] [address] * (ABNORMAL) CBC with auto differential (11/13/2024 6:37 PM DRY HOUSE TENDER) WBC 13.7(H) 3.8 - 9.9 K/cumm Hgb [...] [facility] ([place]) Blood 11/13/2024 6:37 PM DRY HOUSE TENDER 11/13/2024 7:06 PM DRY HOUSE TENDER Norman Garvey MD LAB BLOOD ORDERABLES Final Result [facility] ([place]) [address] [facility] [place] [address] * (ABNORMAL) Drugs of Abuse Screen, Urine without Confirmation (11/13/2024 6:37 PM DRY HOUSE TENDER) Amphetamine, ur Not Detected CutOff 500ng/mL Comment: [...] 2023. Opiates, ur Not Detected CutOff 300ng/mL [facility] ([place]) Comment: Interpretive Data - Opiates: Samples [...] revised on 2017. Urine 11/13/2024 6:37 PM DRY HOUSE TENDER 11/13/2024 7:56 PM DRY HOUSE TENDER Narrative [facility] ([place]) - 11/13/2024 8:10 PM DRY HOUSE TENDER Drug of Abuse screening is performed by immunoassay for medical purposes only. This is not to be used for Pain Management purposes. Norman Garvey MD LAB URINE ORDERABLES Final Result [facility] ([place]) [address] [facility] [place] [address] * hCG, urine, qualitative (11/13/2024 6:37 PM DRY HOUSE TENDER) HCG, ur Negative Negative Urine 11/13/2024 6:37 PM DRY HOUSE TENDER 11/14/2024 12:12 AM DRY HOUSE TENDER us Ronny Robledo MD LAB URINE ORDERABLES Final Re sult Performing Organization Address City/[facility]/ZIP Co de Phone Number [facility] ([place]) 1 [facility] [place] [address] * (ABNORMAL) Urinalysis, microscopic only (11/13/2024 6:37 PM DRY HOUSE TENDER) WBC, ur 21-50(A) 0 - 5 /HPF RBC, ur 6-10(A) 0 - 2 /HPF [facility] ([place]) Epithelial cells, squamous, ur 21-50(A) 0 - 5 /HPF [facility] ([place]) Bacteria, ur Trace(A) [facility] ([place]) Mucous, ur Present(A) [facility] ([place]) Culture Reflex Comment Reflex to urine culture will be performed. [facility] ([place]) Urine, clean voided 11/13/2024 6:37 PM DRY HOUSE TENDER 11/13/2024 7:05 PM DRY HOUSE TENDER us Norman Garvey MD LAB URINE ORDERABLES Final Result Performing Organization Address City/[facility]/ZIP Co de Phone Number [facility] ([place]) 1 [facility] [place] [address] * (ABNORMAL) Erythrocyte sedimentation rate (11/13/2024 6:37 PM DRY HOUSE TENDER) Erythrocyte sedimentation rate 23(H) 1 - 20 mm/hr Blood 11/13/2024 6:37 PM DRY HOUSE TENDER 11/13/2024 7:06 PM DRY HOUSE TENDER Norman Garvey MD LAB BLOOD ORDERABLES Final Result Performing Organization Address City/[facility] Co de Phone Number [facility] ([place]) 1 [facility] [place] [address] * Urine culture Urine, clean voided (11/13/2024 6:37 PM DRY HOUSE TENDER) Report Final Report: Growth indicative of contamination with periurethral lian. Please submit a new specimen with special attention given to the collection process and to prompt transport to the laboratory. Comment:Testing performed by : [facility], [address] [place]., [address] Organism GROWTH INDICATES CONTAM WITH PERIURETHRAL LIAN. [facility] ([place]EL) Urine, clean voided 11/13/2024 6:37 PM DRY HOUSE TENDER 11/13/2024 10:29 PM DRY HOUSE TENDER Narrative [facility] ([place]) - 11/15/2024 4:37 PM DRY HOUSE TENDER Urine culture reflexed based upon urinalysis results. Testing performed by [facility] ([phone]) us Norman Garvey MD LAB MICROBIOLOGY - GENERAL ORDERABLES Final Result Performing Organization Address [facility] Co de Phone Number [facility] ([place]) 1 [facility] [place] [address] * Magnesium (11/13/2024 6:37 PM DRY HOUSE TENDER) Magnesium 2.0 1.4 - 2.5 mg/dL Blood 11/13/2024 6:37 PM DRY HOUSE TENDER 11/13/2024 9:40 PM DRY HOUSE TENDER Norman Garvey MD LAB BLOOD ORDERABLES Final Result Performing Organization Address City/[facility] Co de Phone Number [facility] ([place]) 1 [facility] [place] [address] * (ABNORMAL) Renal function panel (11/13/2024 6:37 PM DRY HOUSE TENDER) Sodium 139 135 - 145 mmol/L Potassium, pl 2.4(C) 3.3 - 4.9 mmol/L [facility] ([place]) Comment:Critical Result call ed by [id number] at 2024-11-13 21:54:47. Result Read Back by [...] [facility] ([place]) Blood 11/13/2024 6:37 PM DRY HOUSE TENDER 11/13/2024 9:40 PM DRY HOUSE TENDER Narrative [facility] ([place]) - 11/13/2024 9:54 PM DRY HOUSE TENDER Confirm potassium us Norman Garvey MD LAB BLOOD ORDERABLES Final Result [facility] ([place]) [address] [facility] [place] [address] * (ABNORMAL) Comprehensive metabolic panel (11/13/2024 6:37 PM DRY HOUSE TENDER) Sodium 137 135 - 145 mmol/L Potassium, pl 2.1(C) 3.3 - 4.9 mmol/L [facility] ([place]) Comment:Critical Result call ed by [email or web address] at 2024-11-13 19:47:30. Result Read Back by [...] [facility] ([place]) Blood 11/13/2024 6:37 PM DRY HOUSE TENDER 11/13/2024 7:06 PM DRY HOUSE TENDER us Norman Garvey MD LAB BLOOD ORDERABLES Final Result [facility] ([place]) [address] [facility] [place] [address] from Last 3 Months Insurance ANTHEM [employer]ESS CHOICE Member Subscriber Plan / Payer (Ef fective 2019-Present) Name:Debora Ramirez Member ID:[id number] Relation to Subscriber:Child Name:VICENTEJENNIFER Subscriber ID:[id number] Date of :1970 (Home) Address: [address] [place] [address] Payer ID:[id number] (NAIC) Type:[facility] Address: [address] ANTHEM ACCESS CHOICE Member Subscriber Plan / Payer (Ef fective 2018-Present) Name:Debora Ramirez Member ID:[id number] Relation to Subscriber:Child Name:RAMIREZJENNIFER Subscriber ID:[id number] Date of :1970 (Home) Address: [address] [place] [address] Payer ID:[id number] (NAIC) Type:[employer] Address: [facility] [id number] [place] [id number] [facility] Advance Directives For more information, please contact: [phone] * Full Code (Latest Code Status on File) Date Activated Date Inactivated Comments 09/08/2021 6:10 PM 09/10/2021 7:41 PM * Full Code Date Activated Date Inactivated Comments 09/08/2021 2:59 AM 09/08/2021 6:10 PM Full CPR in case of cardiopulmonary arrest Care Teams Pediatric Physical Therapist Relationship Specialty Start Date End Date Ruth Tobar NP [address] [place] [id number] PCP - General Family Medicine 12/23/24
--- OUTSIDE RECORDS SUMMARY | 2025-01-16 11:20 | XMS_ITS | Clinical Summary ---
Author Organization [facility] Address [address] 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 This disclosure is being madepursuant to the Care Everywhere program and may not contain all information available regarding this patient. Last updated 18.[facility] Allergies No known active allergies Medications * Be aware that medications may not be up to date on this document. Alwaysverify current medications with the patient. Vit-Fe Fumarate-FA ( VITAMIN) 28-0.8 MG tabletIndicati ons: Take 1 tablet by mouth once daily Reasons: Active valACYclovir (VALTREX) 500 MG tablet 08/21/20 Active Blood Glucose Monitoring Suppl (ONETOUCH VERIO FLEX SYSTEM) w/Device KIT Use 1 kit as directed 1 kit 08/22/20 Active OneTouch Delica Lancets 30G MISC Use 1 Each 4 times daily 100 Each 1 08/22/20 21 Active famotidine (PEPCID) 20 MG tabletIndicati ons:Gastroesop hageal Reflux Disease Take 1 (one) tablet by mouth 2 times daily Reasons: Gastroesophageal Reflux Disease 30 tablet 5 08/22/20 21 Active blood glucose test strip Use 1 (one) strip 4 times daily 100 strip 1 09/05/20 21 Active OneTouch Delica Lancets 33G MISC Use 1 Each 4 times daily 100 Each 1 09/05/20 21 Active Active Problems Problem Noted Date Diagnosed Date 38 weeks gestation of 09/05/2021 Supervision of high-risk of paris delgadoavida 08/08/2021 34 weeks gestation of 08/08/2021 Gestational [...] one in our office and one at [facility] on Saturdays--nursing to communicate with referring [...] 2:05 PM CDT): GDMA1 I counseled Debora Zhang regarding the adverse outcomes associated with inadequately [...] from birthweights. I advised Debora that the [employer] recommends delivery [...] Long-term diabetes surveillance. The risk of Debora Zhang developing diabetes outside of over the next [...] labor with delivery at 35 wks @ [facility], nurse delivery per patient. B weak [...] Date Resolved Date Smoker 06/12/2021 06/12/2021 Immunizations Immunization Administration Dates Next Due HEP A VACCINE, [...] month prior to . Previous alcohol abuse. Comments No Sex and Gender Information Value Date Recorded Sex Assigned at Not on file Legal Sex Female 2:09 PM CDT Gender Identity Not on file Sexual Orientation Not on file Last Filed Vital Signs Vital Sign Reading Time Taken Comments Blood Pressure 113/66 09/07/2021 1:35 PM LEASE OPERATOR Pulse 82 09/07/2021 1:35 PM LEASE OPERATOR Temperature 36.8 C (98.2 F) 10/10/2019 12:58 PM LEASE OPERATOR Respiratory Rate 18 10/10/2019 12:5 8 PM LEASE OPERATOR Oxygen Saturation 99% 09/05/2021 1:50 PM LEASE OPERATOR Inhaled Oxygen Concentration - - Weight 78.4 kg (172 lb 12.8 oz) 09/05/2021 1:50 PM LEASE OPERATOR Height 160 cm (5' 3 ) 06/13/2021 11:21 AM CDT Body Mass Index 30.61 06/13/2021 11:21 AM CDT Plan of Treatment Health Maintenance Due Date Last Done Comments PAP SMEAR 1996 HIV SCREENING 2011 HEPATITIS C SCREENING 03/20/2014 DTAP/TDAP/TD VACCINES (1 - Tdap) 2015 HEPATITIS B VACCINE (1 of 3 - 19+ 3-dose series) 2015 HEPATITIS A VACCINE (2 of 2 - Risk 2-dose series) 07/01/2019 12/29/2018 COVID-19 VACCINE (1 - 2023-2 5 season) 2024 DEPRESSION SCREENING 10/06/2024 INFLUENZA VACCINE (Season Ended) 2025 10/29/19 17 ZOSTER VACCINE (1 of 2) 2046 HIB VACCINE Aged Out No longer eligi ble based on patient's age to complete this topic HPV VACCINE Aged Out No longer eligi ble based on patient's age to complete this topic MENINGOCOCCAL (Group B) VACC INE SHARED DECISION-MAKING Aged Out No longer eligibl e based on patient's age to complete this topic MENINGOCOCCAL GROUPS A/C/Y/W VACCINE Aged Out No longer eligible b ased on patient's age to complete this topic PNEUMOCOCCAL VACCINE Aged Out No long er eligible based on patient's age to complete this topic Insurance COUNTS INCLUDE 234 BEDS AT [facility]
--- OUTSIDE RECORDS SUMMARY | 2025-01-16 11:21 | XMS_ITS ---
Author Organization [facility] Address [address] [place] [address] Care Team Providers Care Chuck Splitter Name Role Phone Ruth Tobar Primary Care Provider Kelly Harden [phone] Medications Medication SIG (Take, Route, Frequency, Duration) Notes Start Date End Date Status Escitalopram Oxalate 10 MG 1 tablet Oral ly Once a day for 14 days Active ARIPiprazole 10 MG 1 tablet at bedtime Orally Once a day for 14 days Active hydrOXYzine HCl 25 MG 1 tablet as needed Orally three times a day for 14 days As needed for anxious distress Active ARIPiprazole 2 MG 1 tablet at bedtime Orally Once a day for 14 days Active Social History Sex Assigned At : Social History Observation Description Sex Assigned At Female Encounters Encounter Location Date Provider Diagnosis [facility] [address] [place] [address] 01/04/2025 Kelly Harden Bipolar 1 disorder F31.9 Assessments Encounter Date Diagnosis (ICD Code) Assessment Notes Treatment Notes Treatment Clinical Notes Section Notes 01/04/2025 Bipolar 1 disorder (ICD-10 - F31.9) Plan Of Treatment Medication Medication Name Sig Start Date Stop Date Notes Escitalopram Oxalate 10 MG 1 tablet Oral ly Once a day for 14 days ARIPiprazole 10 MG 1 tablet at bedtime Orally Once a day for 14 days hydrOXYzine HCl 25 MG 1 tablet as needed Orally three times a day for 14 days ARIPiprazole 2 MG 1 tablet at bedtime Orally Once a day for 14 days Progress Notes * Debora RAMIREZDOB:1994 (29 yo F)Acc No.[id number]:01/04/2025 Patient: Debora WEISS :1995 A ge:29 Y S ex:Female [address] [place], [address] * Refills Refill ARIPiprazole Tablet, 10 MG, Orally, 14 Tablet, 1 tablet at bedtime, Once a day, 14 days, Refills=0 Refill Escitalopram Oxalate Tablet, 10 MG, Orally, 14 Tablet, 1 tablet, Once a day, 14 days, Refills=0 Refill ARIPiprazole Tablet, 2 MG, Orally, 14 Tablet, 1 tablet at bedtime, Once a day, 14 days, Refills=0 Refill hydrOXYzine HCl Tablet, 25 MG, Orally, 42 Tablet, 1 tablet as needed, three times a day, 14 days, Refills=0 * true * Date: Generated for Ryland contreras/Neema/Balta on: 0 01/16/2025 11:20 AM CDT
--- OUTSIDE RECORDS SUMMARY | 2025-01-16 11:21 | XMS_ITS ---
Author Organization [facility] Address [address] [place] [address] Care Team Providers Care Granite Polisher Machine Name Role Phone Ruth Tobar Primary Care Provider Kelly Harden Unavailable [phone] Allergies No Known Allergies REASON FOR VISIT 2 Week Psych Med Check Medications Medication SIG (Take, Route, Frequency, Duration) Notes Start Date End Date Status Benztropine Mesylate 1 MG 1 tablet at [...] needed Orally Once a day Active Saline Kinston 0.65 % as directed Nasally up to 3 times daily for 14 days As needed on unit 11/30/2024 Active rifAMPin Active hydrOXYzine HCl 25 MG 1 tablet as needed Orally three times a day for 30 days As needed for anxious distress Active Escitalopram Oxalate 10 MG 1 tablet Orally Once a day for 30 days Active ARIPiprazole 2 MG 1 tablet at bedtime Orally Once a day for 30 days Active Famotidine 20 MG 1 tablet at as needed Orally Once a day for 30 days As needed for acid reflux on unit 11/30/2024 Active Xulane 150-35 MCG/24HR as directed Transdermal Not-Taking OLANZapine 15 MG 1 tablet Orally Once a day for 30 day(s) Not-Taking ARIPiprazole 10 MG 1 tablet at bedtime Orally Once a day for 30 days Active Social History Tobacco Use: Social History Observation Description Date Details (start date - stop date) Current Smoker NA - NA Sex Assigned At : Social History Observation Description Sex Assigned At Female Tobacco Control (Standard) Question Answer Notes Tobacco use: Current smoker Section Notes: Social History- location- [place]- [place] Describe childhood- Abuse/Trauma-yes 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 Confirmed knowledge of [facility] hotline [phone] for clients 20 and under and [facility] Crisis line [phone] and awareness of 988. 12/28/2024 Alcohol use disorder (ICD-10 - F10.99) 12/28/2024 Nicotine dependence, unspecified, uncomplicated (ICD-10 - F17.200) Plan Of Treatment Medication Medication Name Sig Start Date Stop Date Notes hydrOXYzine HCl 25 MG 1 tablet as needed Orally three times a day for 30 days Escitalopram Oxalate 10 MG 1 tablet Oral ly Once a day for 30 days ARIPiprazole 2 MG 1 tablet at bedtime Orally Once a day for 30 days ARIPiprazole 10 MG 1 tablet at bedtime Orally Once a day for 30 days Treatment Notes Assessment Notes Bipolar 1 disorder Has Rf's through 02/13/25. SGA SE- Discussed [...] in mood or behavior. Confirmed knowledge of [facility] hotline [phone] for clients 20 and under and [facility] Crisis line [phone] and awareness of 988. Next Appt Details Follow Up: 4 Weeks, Reason: Progress Notes * Debora RAMIREZDOB:1994 (29 yo F)Acc No.[id number]:12/28/2024 Patient: Debora WEISS Provider: AMOS Tucker :1995 A ge:29 Y S ex:Female Date:12/28/2024 Address:[address] [place] [address] [facility] Pcp:Ruth Tobar Subjective: * Chief Complaints: * 2 Week Psych Med Check * HPI: P sych F/U: Patient presents for psychiatric follow-up visit. 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 Understands that she can not drink while taking and has not used any ETOH since beginning therapy. Is using cannabis twice a day and is not willing to change this. Will have labs monthy to monitor liver enzymes. She has had no sick contacts. Feels that her meds are working well. Mood is stable. 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 Able to engage with one son but other son, Bola garibay he is not able to visit. [facility] case is open and she has a material crew supervisor and is completing random drug tests and she will observe her with Ike today. . Effectiveness of medications: Y es, patient reports they are effective. Medication Adherence: R eports taking medications as prescribed. Sleep: A ppropriate sleep. Appetite A ppropriate appetite. Depression (10 = most depressed) - 3/10 I miss my kids . Anxiety (10 = most anxious) 0 /10. Anger/Irritability (10 is highest): 0 /10. Suicidal ideation: D enies suicidal ideation.. Homicidal ideation: D enies homicidal ideation.. Hallucinations A dmits Paranoia - Denies hallucinations.? Medical concerns or hospitalizations? c urrent treatment for TB. Therapy? e ngaged with [facility] program at on 12/27/24 in anticpation of DCFS requirement. I nterim History: Emergency room visit N o. Was hospitalized N o. D epression Screening: PHQ-9 L ittle interest or pleasure in doing things?Not at all F eeling down, depressed, or hopeless S everal days T rouble falling or staying asleep, or sleeping too much N ot at all F eeling tired or having little energy N ot at all P oor appetite or overeating N ot at all F eeling bad about yourself or that you are a failure, or have let yourself or your family down N ot at all T rouble concentrating on things, such as reading the newspaper or watching television N ot at all M oving or speaking so slowly that other people could have noticed; or the opposite, being so fidgety or restless that you have been moving around a lot more than usual N ot at all T houghts that you would be better off or of hurting yourself in some way N ot at all C SSRS Interpretation and Follow Up Plan: CSSRS Interpretation and Follow Up Plan C SSRS Screen documented using SF Y es R isk Disposition from SF L ow - No Follow Up Plan Required F ollow Up Plan N o Follow Up Plan required at this time. S creening: [place] Suicide Severity Rating Scale (LF) 1 . Wish to be : Have [...] N o I nterpretation: L ow Risk * ROS: P sych ROS: Constitutional D enies, A ll systems negative unless indicated otherwise.. E yes D enies. E ars/Nose/Mouth/Throat D enies. R espiratory D enies.?Allergic/Immunologic D enies. C ardiovascular D enies, d izziness, syncope, palpitations.. G I D enies, d enies nausea, vomiting, abdominal pain or jaundice. G U D enies. M usculoskeletal D enies, t ics, tremors, abnormal motor movements.. N eurological D enies. I ntegumentary D enies. E ndocrine D enies. H ematological/Lymphatic D enies, b leeding, excessive bruising. * PSYCH ROS2: Admits m ood swings. T houghts of self harm D enies. D enies H omicidal thoughts. P aranoia A dmits. D ifficulty concentrating A dmits. A dmits A nxiety. D enies A uditory/visual hallucinations. A dmits D elusions. A dmits D epressed mood. D enies D ifficulty sleeping, + nightmares, H istoricall y has had episoes of poor sleep and not needed it. A dmits S tressors. A dmits S ubstance abuse. D enies S uicidal thoughts. * Medical History: * Surgical History: D enies Past Surgical History * Hospitalization/Major Diagno stic Procedure: T [facility] inpatient 11/2024ER trip prior to admittance [facility] --left there. [facility] Treatment for ETOH and Cocaine. * Family History: F ather: alive. 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 * Medications: T akingrifAMPin ARIPiprazole 10 MG Tablet 1 tablet at bedtime Orally Once a day Escitalopram Oxalate 10 MG Tablet 1 tablet Orally Once a day Famotidine 20 MG Tablet 1 tablet at as needed Orally Once a day As needed for acid reflux, Notes to Pharmacist: on unitSaline Kinston 0.65 % Solution as directed Nasally up to 3 times daily As needed, Notes to Pharmacist: on unithydrOXYzine Pamoate 25 MG Capsule 1 capsule at bedtime as needed Orally Once a day Propranolol HCl 20 MG Tablet 1 tablet Orally Twice a day metroNIDAZOLE 500 MG Tablet 1 tablet Orally Twice daily , Notes to Pharmacist: on unitARIPiprazole 2 MG Tablet 1 tablet at bedtime Orally Once a day hydrOXYzine HCl 25 MG Tablet 1 tablet as needed Orally three times a day As needed for anxious distressBenztropine Mesylate 1 MG Tablet 1 tablet at bedtime Orally Once a day Taking rifAMPin Taking ARIPiprazole 10 MG Tablet 1 tablet at bedtime Orally Once a day Taking Escitalopram Oxalate 10 MG Tablet 1 tablet Orally Once a day Taking Famotidine 20 MG Tablet 1 tablet at as needed Orally Once a day As needed for acid reflux, Notes to Pharmacist: on unitTaking Saline Kinston 0.65 % Solution as directed Nasally up to 3 times daily As needed, Notes to Pharmacist: on unitTaking hydrOXYzine Pamoate 25 MG Capsule 1 capsule at bedtime as needed Orally Once a day Taking Propranolol HCl 20 MG Tablet 1 tablet Orally Twice a day Taking metroNIDAZOLE 500 MG Tablet 1 tablet Orally Twice daily , Notes to Pharmacist: on unitTaking ARIPiprazole 2 MG Tablet 1 tablet at bedtime Orally Once a day Taking hydrOXYzine HCl 25 MG Tablet 1 tablet as needed Orally three times a day As needed for anxious distressTaking Benztropine Mesylate 1 MG Tablet 1 tablet at bedtime Orally Once a day Not-TakingOLANZapine 15 MG Tablet 1 tablet Orally Once a day Xulane 150-35 MCG/24HR Patch Weekly as directed Transdermal Not-Taking OLANZapine 15 MG Tablet 1 tablet Orally Once a day Not-Taking Xulane 150-35 MCG/24HR Patch Weekly as directed Transdermal * Allergies: N .K.D.A.no[Allergies Verified] Objective: * Vitals: * Examination: M ental Status Exam: SENSORIUM AND COGNITION A lert , Oriented to Person , Oriented to Place , Oriented to Time , Oriented to Situation. ATTENTION AND CONCENTRATION N o deficits. APPEARANCE P alissa interview - unable to determine appearance.. ATTITUDE AND BEHAVIOR C ooperative , Receptive. MEMORY G rossly intact. EYE CONTACT P alissa interview. AFFECT B road/Full , Congruent with reported mood. MOOD E uthymic expresses worry and sadness around kids well-being. SPEECH QUANTITY A ppropriate. SPEECH QUALITY S pontaneous , Fluent , Appropriate volume.? THOUGHT PROCESS C oherent and goal directed. THOUGHT CONTENT A ppropriate - WNL , Congruent with affect , No evidence of delusional content , No reports paranoia. SUICIDAL IDEATION D enies suicidal ideation , Denies self-harm activities. HOMICIDAL IDEATION D enies homicidal ideation. HALLUCINATIONS D enies auditory hallucinations , Denies visual hallucinations. INSIGHT F air. JUDGMENT F air. FUND OF KNOWLEDGE , Fair. ABILITY TO PARTICIPATE IN TREATMENT M oderate. WILLINGNESS TO PARTICIPATE IN TREATMENT M oderate. ? Assessment: * Assessment: 1. B ipolar 1 disorder - F31.9 (Primary) 2 . A lcohol use disorder - F10.99? 3. N icotine dependence, unspecified, uncomplicated - F17.200 Plan: * Treatment: * Procedure Codes: * Follow Up: 4 Weeks * * Sign off status: Completed true * Provider: ALAN Tucker- Date: 0 12/28/2024 Generated for Ryland contreras/Neema/Glennsmrossi on: 0 01/16/2025 11:20 AM CDT History and Physical Notes * HPI (History of Present Illness) Category Sub-Category Detail Notes Category Not es Interim History Was hospitalized No Emergency room visit No Depression Screening PHQ-9 Little inte rest or pleasure in doing things: Not at all Feeling down, depressed, or hopeless: Se veral days Trouble falling or staying asleep, or sl eeping too much: Not at all Feeling tired or having little energy: N ot at all Poor appetite or overeating: Not at all Feeling bad about yourself o r that you are a failure, or have let yourself or your family down: Not at all Trouble concentrating on thi ngs, such as reading the newspaper or watching television: Not at all Moving or speaking so slowly that other people could have noticed; or the opposite, being so fidgety or restless that you have been moving around a lot more than usual: Not at all Thoughts that you would be b haroldo off or of hurting yourself in some way: Not at all Psych F/U Changes since last visit?: Start ed rifampin 4 month course for active TB. Understands that she can not drink while taking and has not used any ETOH since beginning therapy. Is using cannabis twice a day and is not willing to change this. Will have labs monthy to monitor liver enzymes. She has had no sick contacts. Feels that her meds are working well. Mood is stable. 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 Able to engage with one son but other son, Bola she is not able to visit. DCFS case is open and she has a material crew supervisor and is completing random drug tests and she will observe her with Ike today. Effectiveness of medications: Yes, patie nt reports they are effective Medication Adherence: Reports taking med ications as prescribed Sleep: Appropriate sleep Appetite Appropriate appetite Depression (10 = most depressed) - 3/10 I miss my kids Anxiety (10 = most anxious) 0/10 Anger/Irritability (10 is highest): 0/10 Suicidal ideation: Denies suicidal idea tion. Homicidal ideation: Denies homicidal karrie ation. Hallucinations Admits Paranoia - De nies hallucinations Medical concerns or hospitalizations? cu rrent treatment for TB Therapy? engaged with [facility] at on 12/27/24 in anticpation of DCFS requirement Screening [place] Suicide Sev erity Rating Scale (LF) 1. Wish to be : Have you [...] Category Sub-Category Detail Notes Category Not es Mental Status Exam SENSORIUM AND COGNITION Alert , Oriented to Person , Oriented to Place , Oriented to Time , Oriented to Situation ATTENTION AND CONCENTRATION No deficits APPEARANCE Phone interview - un able to determine appearance. ATTITUDE AND BEHAVIOR Cooperative , Rece ptive MEMORY Grossly intact EYE CONTACT Phone interview AFFECT Broad/Full , Congrue nt with reported mood MOOD Euthymic expresses w orry and sadness around kids well-being SPEECH QUANTITY Appropriate SPEECH QUALITY Spontaneous , Fluent , Appropriate volume THOUGHT PROCESS Coherent and goal di rected THOUGHT CONTENT Appropriate - WNL , Congruent with affect , No evidence of delusional content , No reports paranoia SUICIDAL IDEATION Denies suicidal idea tion , Denies self-harm activities HOMICIDAL IDEATION Denies homicidal karrie ation HALLUCINATIONS Denies auditory hoffmann ucinations , Denies visual hallucinations INSIGHT Fair JUDGMENT Fair FUND OF KNOWLEDGE , Fair ABILITY TO PARTICIPATE IN TREATMENT Mode rate WILLINGNESS TO PARTICIPATE IN TREATMENT Moderate
--- OUTSIDE RECORDS SUMMARY | 2025-01-16 11:21 | XMS_ITS ---
Author Organization [facility] Address [address] [place] [address] Care Team Providers Care Hair Baler Name Role Phone Amadou Ruth Primary Care Provider Kelly Harden Unavailable [phone] REASON FOR VISIT refill Social History Sex Assigned At : Social History Observation Description Sex Assigned At Female Encounters Encounter Location Date Provider Diagnosis [address] [address] 12/30/2024 Kelly Harden Plan Of Treatment No Information Progress Notes * Debora RAMIREZDOB:1994 (29 yo F)Acc No.[id number]:12/30/2024 Patient: Debora WEISS :1995 A ge:29 Y S ex:Female [facility] [place], [address] * true * Date: Generated for Printi ng/Fasadieg/eTransmitting on: 0 01/16/2025 11:20 AM CDT
[2025-01-16 11:24] VITALS: BP 103/65; PULSE 94; RESP 16; TEMP 36.3; O2SAT 97
--- NOTE | 2025-01-16 12:32 | ED.GENADULT ---
HPI - General Adult General Chief complaint: Eye Problems Stated complaint: Left Eye Problem Source: patient Mode of arrival: ambulatory Limitations: no limitations History of Present Illness HPI narrative: Patient presents for evaluation of what she believes to be a corneal abrasion. She indicates that her pillow scratched her left eye last night. She has tearing and blurred vision on the left. She has a burning sensation present. She does not wear glasses or contacts. Related Data Home Medications ?Medication ?Instructions ?Recorded ?Confirmed ?Last Taken ?Type aripiprazole 10 mg tablet mg 01/16/25 Unknown History aripiprazole 2 mg tablet mg 01/16/25 Unknown History benztropine 1 mg tablet mg 01/16/25 Unknown History escitalopram oxalate 10 mg tablet mg 01/16/25 Unknown History hydroxyzine HCl 25 mg tablet mg 01/16/25 Unknown History multivitamin with folic acid 400 tablet PO 01/16/25 Unknown History mcg tablet (Daily-Moisés (with folic acid)) rifampin 300 mg capsule mg 01/16/25 Unknown History Allergies Allergy/AdvReac Type Severity Reaction Status Date / Time EYE DROP Allergy Mild Rash Uncoded 01/16/25 12:02 Review of Systems Review of Systems: CONSTITUTIONAL: Denies fever, chills, or sweats. EYES: Reports burning sensation to the left eye with tearing and blurred vision ENT: Denies rhinorrhea, congestion, sore throat, or otalgia. CARDIOVASCULAR: Denies chest pain, palpitations, or edema. RESPIRATORY: Denies cough or dyspnea. GASTROINTESTINAL: Denies abdominal pain, nausea, vomiting, or diarrhea. GENITOURINARY: Denies dysuria or hematuria. SKIN: Denies rash or itching. MUSCULOSKELETAL: Denies back pain, joint pain, or myalgia. NEUROLOGIC: Denies headache, numbness, dizziness, or weakness. PSYCHIATRIC: Denies anxiety or depression. [facility], [facility] Past Medical History Medical History Asthma Surgical History Surgical History No pertinent past surgical history Family History Family History Mother Family history non-contributory Social History Social History Smoking status: Never smoker Alcohol intake: current Alcohol use details: social Substance use type: does not use Gender identity (if verbalized by the patient): Female Exam Narrative: GENERAL: Well-appearing, well-nourished, and in no acute distress. HEAD: Normocephalic, atraumatic. EYES: PERRLA and EOMI. Tearing noted from the left eye. I do not appreciate any dye uptake with fluorescein and Wood's lamp evaluation ENT: Nares clear, no rhinorrhea or epistaxis. Mucous membranes moist. Oropharynx without tonsillar hypertrophy exudate or other lesions. Bilateral TMs pearly pastrana nonbulging NECK: Supple. No adenopathy or masses. No carotid bruits or JVD CHEST: Clear to auscultation. No respiratory distress. No wheezes rales or rhonchi HEART: Regular rate and rhythm. No murmur heard. Normal peripheral pulses. ABDOMEN: Soft, nontender, nondistended, normal active bowel sounds. EXTREMITIES: Normal range of motion. No edema. SKIN: Warm, dry, no rash. NEURO: No focal deficits. Alert and oriented x3. PSYCH: Normal mood and affect. Course Course Emergency Course: This is a 29-year-old female who presented for evaluation after a pillow scratched her left eye last night. I do not appreciate a visible corneal abrasion however her exam is consistent with that from a history and symptom standpoint. Will tx with erythromycin. Follow up with primary provider. Go to the ER for worsening symptoms. Pt in agreement with plan of care. Level of Care: Express Care Visit Vital Signs Vital signs: Vital Signs Temperature 36.3 C L 01/16/25 11:24 Pulse Rate 94 01/16/25 11:24 Respiratory Rate 16 01/16/25 11:24 Blood Pressure 103/65 01/16/25 11:24 Pulse Oximetry 97 01/16/25 11:24 Oxygen Delivery Room Air 01/16/25 11:24 Temperature 36.3 C L 01/16/25 11:24 Pulse Rate 94 01/16/25 11:24 Respiratory Rate 16 01/16/25 11:24 Blood Pressure 103/65 01/16/25 11:24 Pulse Oximetry 97 01/16/25 11:24 Oxygen Delivery Room Air 01/16/25 11:24 Medical Decision Making Vital Signs Vital Signs: Vital Signs Temperature 36.3 C L 01/16/25 11:24 Pulse Rate 94 01/16/25 11:24 Respiratory Rate 16 01/16/25 11:24 Blood Pressure 103/65 01/16/25 11:24 Pulse Oximetry 97 01/16/25 11:24 Oxygen Delivery Room Air 01/16/25 11:24 Temperature 36.3 C L 01/16/25 11:24 Pulse Rate 94 01/16/25 11:24 Respiratory Rate 16 01/16/25 11:24 Blood Pressure 103/65 01/16/25 11:24 Pulse Oximetry 97 01/16/25 11:24 Oxygen Delivery Room Air 01/16/25 11:24 Discharge Plan Discharge Clinical Impression: At high risk for corneal abrasion Patient Disposition: Home Condition: Stable Instructions: Antibiotic Form, Corneal Abrasion (ED) Patient Language: Syrian Prescriptions: New erythromycin 5 mg/gram (0.5 %) ointment 1 applic LEFT EYE 6XD Qty: 3.5 0RF No Action rifampin 300 mg capsule benztropine 1 mg tablet hydroxyzine HCl 25 mg tablet escitalopram oxalate 10 mg tablet aripiprazole 10 mg tablet aripiprazole 2 mg tablet multivitamin with folic acid [Daily-Moisés (with folic acid)] 400 mcg tablet PO Follow-up/Referrals: Carmen Victor DO [Physician] - Time of Disposition: 12:30
== END 2025-01-16 12:33 | disposition home or self-care (01) ==
PROVIDERS: Emergency Provider Nurse Practitioner
DX: H57.12 Ocular pain, left eye (principal); H53.8 Other visual disturbances; H57.89 Other specified disorders of eye and adnexa; J45.909 Unspecified asthma, uncomplicated
CPT/HCPCS: 99213; A9270; G0463